=== PATIENT | female | born 1965 | race African-American/Black ===

== ENCOUNTER 2023-09-09 14:09 | Emergency (ER) | payer BC, SELFPAY ==
[2023-09-09 14:27] VITALS: BP 159/76; PULSE 75; RESP 18; TEMP 36.3; O2SAT 97; BMI 24.0
== END 2023-09-09 15:25 | disposition left against medical advice (07) ==
PROVIDERS: Emergency Provider Emergency Medicine Emergency Medical Services
DX: Z53.21 Procedure and treatment not carried out due to patient leaving prior to being seen by health care provider (principal)

== ENCOUNTER 2023-09-09 16:58 | Emergency (ER) | payer BC, SELFPAY ==
[2023-09-09 18:12] VITALS: BP 161/77; PULSE 85; RESP 16; TEMP 36.5; O2SAT 99; BMI 26.3
== END 2023-09-09 20:10 | disposition left against medical advice (07) ==
PROVIDERS: Emergency Provider Family Medicine
DX: Z53.21 Procedure and treatment not carried out due to patient leaving prior to being seen by health care provider (principal)

== ENCOUNTER 2024-10-28 14:45 | Outpatient (RCR) | payer BC, SELFPAY | END 2024-10-28 16:54 | disposition home or self-care (01) | PROVIDERS: Visit Provider Student in an Organized Health Care Education/Training Program | DX: M19.041 Primary osteoarthritis, right hand (principal); Z51.89 Encounter for other specified aftercare | CPT/HCPCS: 97035; 97110; 97140; 97165; 97535; X5282 ==

== ENCOUNTER 2025-01-13 05:56 | Day surgery (SDC) | payer BC, SELFPAY ==
[2025-01-13] VITALS (9 sets, daily range): BP systolic 142–162; BP diastolic 69–85; PULSE 70–97; RESP 16; TEMP 36.6–36.7; O2SAT 98–100; BMI 23.6
[2025-01-13] MEDS: LIDOCAINE 1%-EPI 1:100,000 20 ML INFILTRATI (06:11)
[2025-01-13] MEDS: BUPIVACAINE 0.5% 30 ML INJECTION (06:50)
--- NOTE | 2025-01-13 07:37 | PM.ORPRC ---
Procedure Note Date of procedure: 01/13/25 Procedure: PREOPERATIVE DIAGNOSIS: 1. Right carpal tunnel syndrome POSTOPERATIVE DIAGNOSIS: 1. Right carpal tunnel syndrome PROCEDURE: 1. Right open carpal tunnel release SURGEON: Kai Fonseca MD. SENIOR ENVIRONMENTAL PRACTICE LEADER: Parish Cee PA-C ANESTHESIA: Local anesthetic (50:50 mixture of 1% lidocaine with epi and 0.5% marcaine with epi) - 10ml total IMPLANTS: None EBL: 2 mL TOURNIQUET: None COMPLICATIONS: None evident INDICATIONS: The patient is a pleasant 59-year-old female who has experienced right hand numbess/tingling affecting the radial 3.5 digits for multiple months. It has progressively gotten worse. Nonoperative management has been tried and failed, and therefore surgery was recommended. DESCRIPTION OF PROCEDURE: Following a thorough discussion of risks, benefits, and alternatives consent was obtained and the operative extremity was marked. The patient was brought to the operating room and placed supine on the operating table. Local anesthesia induction was undertaken in preop holding. No antibiotics were administered as this was planned to be a local case only. Proper time-out was performed identifying proper patient, site, and procedure. The operative extremity was prepped and draped in the appropriate sterile fashion using ChloraPrep. An incision was made in line with the radial border of the ring finger beginning 1 cm distal to the distal wrist crease and progressing for another 2.5cm distal. Caution was taken to stay proximal to Douglas's cardinal line. Sharp incision through the skin, subcutaneous tissue, and palmar fascia was performed. The thenar musculature was bluntly elevated off the transverse carpal ligament. The ligament was directly visualized, and divided sharply with a 15 blade. This was released from its most proximal to the most distal extent. Metzenbaum scissor was also utilized to release the fascia extension proximally. We confirmed complete release of the transverse carpal ligament. Closure was performed with 4-O nylon in interrupted fashion. Soft dressings were applied, and the patient was transferred to the recovery room in stable condition. PLAN: 1. Encourage elevation of the operative extremity. 2. Range of motion of the fingers and hand/wrist as tolerated. 3. Ibuprofen/acetaminophen and/or oxycodone as needed for pain control. 4. Follow up with PA visit or nurse visit in 12-16 days for wound check and suture removal.
[2025-01-13] MEDS: BACITRACIN OINTMENT BULK TUBE 1 APPLIC TOPICAL (07:39)
== END 2025-01-13 08:03 | disposition home or self-care (01) ==
PROVIDERS: PCP Family Medicine; Visit Provider Orthopaedic Surgery Sports Medicine
PROC: (CPT 64721; principal; 2025-01-13 07:15)
DX: G56.01 Carpal tunnel syndrome, right upper limb (principal)
CPT/HCPCS: 64721; J0665

== ENCOUNTER 2025-03-20 12:27 | Emergency (ER) | payer BC, SELFPAY ==
--- OUTSIDE RECORDS SUMMARY | 2020-06-02 02:01 | XMS_ITS | Continuity of Care Document ---
Author Organization [facility] Address [address] [address] [place] [address] Phone Care Team Providers Care Optimization Consultant Name Role Phone [place] Fermin CRNA Unavailable Allergies, Adverse Reactions, Alerts Substance Reaction Status Criticality ERYTHROMYCIN LACTOBIONATE rash Active No Information AMOXICILLIN TRIHYDRATE Rash Active No In formation PENICILLIN G POTASSIUM Rash Active No In formation Medications Medication Instructions Dosage Effective Dates (start - stop) Status Comments phentermine 37.5 mg capsule take 0.5 capsule by ORAL route every day before breakfast 18.75 MG - Active vitamin B12 500 mcg-folic acid 400 mcg tablet - Active Vitamin D3 100 mcg (4,000 unit) capsule take 1 tablet by oral route every day as needed - Active omeprazole 20 mg capsule,delayed release take 1 capsule by ORAL route 2 times every day before a meal 20 MG - Active Procedures Procedure Date Colonoscopy Flex; W/remov Les- 21 Level Iv-surg Path Gross/micro 21 Colonoscopy Flex; W/remov Les- 14 Level Iv-surg Path Gross/micro 14 Ugi Endo; W/bx 1/mx Level Iv-surg Path Gross/micro 12 Ugi Endo; W/bx 1/mx Level Iv-surg Path Gross/micro 10 Offic/outpt E&m Estab Low-mod 9 G8447 Offic/outpt E&m Estab Mod-hi 2 09 G8447 Breath Hydrogen Test Breath Hydrogen Test Breath Hydrogen Test Breath Hydrogen Test Breath Hydrogen Test Offic/outpt E&m Estab Mod-hi 2 08 G8447 Offic/outpt E&m Estab Low-mod 8 G8447 Offic/outpt E&m Estab Mod-hi 2 08 G8447 Offic/outpt E&m Estab Mod-hi 2 08 G8447 Offic/outpt E&m Estab Mod-hi 2 08 Offic/outpt E&m Estab Mod-hi 2 08 Ugi Endo; W/bx 1/mx Level Iv-surg Path Gross/micro 07 Immunocytochemistry, Each Antibody Advance Directives Directive Yes / No Effective Date File Name No Information Encounters Encounter Description Practice Location Reason(s) For Visit Diagnoses Date Provider Providers Copied on Encounter [facility] SHIKHA BERMAN [address] [address], [place], [place], [id number], tel:[phone] [facility] No Information 1 Zander Dodson. [address], [id number], [place]. tel:[phone] Referring Provider: Kimberly Braden, [address], [address]. tel:[phone] [facility] [place] [address] [address], [place], [place], [id number], [place] tel:[phone] [facility] Colorectal polypsPerson al history of colonic polypsEncoun ter for screening for malignant neoplasm of colonBenign neoplasm of ascending colonBenign neoplasm of transverse colonBenign neoplasm of ascending colonPersona l history of colonic polyps 1 Rita Harris. [address], [id number], [place]. tel:[phone] Referring Provider: Stevie Nick, [address] [place], [address]. tel:[phone] [facility], [address] [address], [place], [id number], [place] tel:[phone] [facility] No Information 1 Britt Dodson. [address], [id number], [place]. tel:[phone] [facility], [address] [address], [place], [id number], [place] tel:[phone] [facility] No Information 0 Carlos Contreras. [address], [id number], [place]. tel:[phone] [facility], [address] [address], [place], [id number], [place] tel:[phone] [facility] Colon polypColon Cancer ScreeningBen ign Neoplasm ColonPersona l History Colon Polyps 4 Karen Cheng. [address], [id number], [place]. tel:[phone] Referring Provider: Stevie Nick, [address] [place], [address]. tel:[phone] [facility], [address] [address], [place], [id number], [place] tel:[phone] [facility] Post-op Aftercare NecEpigastri c PainEpigastr ic PainPost-op Aftercare Nec Feb- 2 Karen Cheng. [address], [id number], [place]. tel:[phone] Referring Provider: Harvinder Grigsby, [address] [facility] [address], [place], [address]. [phone] [facility], [address] [address], [place], [id number], [place] tel:[phone] [facility] Post-op Aftercare NecDysphagia , UnspecifiedB ariatric Surgery Status - 0 Gelacio Glass. [address] [facility], [address], [place], [place], [id number], [place]. tel:[phone] Referring Provider: Sonal BERMAN, [address] [facility] [address], [place], [address]. tel:[phone] Offic/outpt E&m Estab Low-mod [facility] [place], [address] [address], [place], [id number], [place] tel:[phone] [facility] Abdominal pain/Gastrop aresis (chief complaint)We ight gain (chief complaint) Gastroparesi sGastropares isAbdominal Pain, UnspecifiedA bnormal Weight Gain 3200 9 No Information Referring Provider: Stevie Zarco MD J, [address] [place], [address]. tel:[phone] Offic/outpt E&m Estab Mod-hi 2 [facility] [place], [address] [address], [place], [id number], [place] tel:[phone] [facility] Vomiting (chief complaint) Nausea With Vomiting 0200 9 No Information [facility] [place], [address] [address], [place], [id number], [place] tel:[phone] [facility] Flatul/eruct at/gas Pain 9200 9 No Information Referring Provider: Stevie Nick, [address] [facility], [place], [address]. tel:[phone] [facility], [address] [address], [place], [id number], [place] tel:[phone] [facility] Flatul/eruct at/gas Pain 8 No Information Referring Provider: Stevie Nick, [address] [place] [address], [place], [address]. tel:[phone] [facility], [address] [address], [place], [id number], [place] tel:[phone] [facility] Gastroparesi s 8 No Information Referring Provider: Stevie Nick, [address] [place] [address], [place], [address]. tel:[phone] [facility], [address] [address], [place], [id number], [place] tel:[phone] [facility] Gastroparesi s 8 No Information Referring Provider: Stevie Nick, [address] [place] [address], [place], [address]. tel:[phone] [facility], [address] [address], [place], [id number], [place] tel:[phone] [facility] Gastroparesi s 8 No Information Referring Provider: Stevie Nick, [address] [place] [address], [place], [address]. tel:[phone] Offic/outpt E&m Estab Mod-hi 2 [facility], [address] [address], [place], [id number], [place] tel:[phone] [facility] Gastroparesi s (chief complaint) Gastroparesi sGastropares is 8 Paulino Huang. [address] [facility], [place] [address], [place], [place], [id number], [place]. tel:[phone] Referring Provider: Stevie Nick, [address] [place] [address], [place], [address]. tel:[phone] Offic/outpt E&m Estab Low-mod [facility], [address] [address], [place], [address], [place] tel:[phone] [facility] f/u abdominal pain (chief complaint) Gastroparesi sAbdominal Pain, UnspecifiedF latul/eructa t/gas Pain 8 No Information Referring Provider: Stevie Nick, [address] [facility], [place], [address]. tel:[phone] Offic/outpt E&m Estab Mod-hi 2 [facility], [address] [address], [facility] [place], [address], [place] tel:[phone] [facility] Gastroparesi sAbdominal Pain, UnspecifiedH eartburnNaus ea Alone 8 No Information Referring Provider: Stevie Nick, [address] [facility], [place], [address]. tel:[phone] Offic/outpt E&m Estab Mod-hi 2 [facility], [address] [address], [place], [place], [id number], [place] tel:[phone] [facility] Abdominal Pain, UnspecifiedH eartburnNaus ea With VomitingEarl y Satiety 8 No Information Referring Provider: Stevie Nick, [address] [facility], [place], [address]. tel:[phone] Offic/outpt E&m Estab Mod-hi 2 [facility], [address] [address], [facility] [place], [id number], [place] tel:[phone] [facility] H. Pylori InfectionAbd ominal Pain, Unspecified 8 No Information Referring Provider: Stevie Nick, [address] [facility], [place], [address]. tel:[phone] Offic/outpt E&m Estab Mod-hi 2 [facility], [address] [address], [facility] [place] [id number], [place] tel:[phone] [facility] Abdominal Pain, UnspecifiedC onstipation UnspecifiedE sophagitis Nec 2200 8 No Information Referring Provider: Stevie Zarco MD J, [address] [facility], [place], [address]. tel:[phone] [facility], [address] [address], [place], [id number], tel:[phone] [facility] Esophagitis NecGastritis W/o Bleed 3200 7 No Information Referring Provider: [place] J, [address] [facility], [place], [address]. tel:[phone] Family History Family Member Type Diagnosis Age At Onset First degree family history Problem (finding) No Family history of No history of Colon Polyps First degree family history Problem (finding) No history of Ulcerative Colitis First degree family history Problem (finding) No history of Cancer, colon First degree family history Problem (finding) No history of Crohn's First degree family history Problem (finding) asthma First degree family history Problem (finding) alcoholism First degree family history Problem (finding) Cancer, breast Immunizations Vaccine Date Status Comments zoster vaccine recombinant administered N ote: [facility] bi-directional interface ; Source: Other Registry zoster vaccine recombinant administered N ote: [facility] bi-directional interface ; Source: Other Registry Influenza administered Note: [facility] bi-d irectional interface ; Source: Other Registry Afluria Qd administered Note: M [facility] bi-directional interface ; Source: Other Registry Fluzone Quad 6mo or older administered Note: [facility] bi-direct ional interface ; Source: Other Registry tetanus toxoid, reduced diphtheria toxoid, and acellular pertussis vaccine, adsorbed administered Note: [facility] b i-directional interface ; Source: Other Registry Influenza, seasonal, injecta ble, preservative free administered Note: [facility] bi-direct ional interface ; Source: Other Registry Influenza, seasonal, injectable administe red Note: [facility] bi- directional interface ; Source: Other Registry Influenza, seasonal, injectable administe red Note: [facility] bi- directional interface ; Source: Other Registry tetanus and diphtheria toxoi ds, adsorbed, preservative free, for adult use (2 Lf of tetanus toxoid and 2 Lf of diphtheria toxoid) administered Note: [facility] bi-direct ional interface ; Source: Other Registry Payers Payer name Insurance type Covered alliance party ID Authoriza tizaida(s) Blue Cross Of [facility] [id number] Social History Type Description Quantity Date Captured Comments Sex Female Smoking Status No Information Chief Complaint And Reason For Visit No Information Reason For Referral Reason For Referral No Information Plan Of Treatment Date Type Action Status Referral Ordered: Colonoscopy Appointment date/timeframe: 11/13/2018 ordered History Of Present Illness Encounter Date Complaint History Of Prese nt Illness No Information Functional Status Date Functional Assessmen t No Information Instructions Date Instruction Additional Infor isabelle Colon Cancer Prevention Related to Colorectal polyps Colon Polyps Related to Color ectal polyps Colon Cancer Prevention Related to Colon polyp Colon Polyps Related to Colon polyp Assessments Type Assessment Date No Information Patient Care Teams Name Effective Dates (start - stop) Status Members No Information
--- OUTSIDE RECORDS SUMMARY | 2020-06-02 02:01 | XMS_ITS | Continuity of Care Document ---
Author Organization [facility] Address [address] [address] [place] [address] Phone Care Team Providers Care Gas Blender Name Role Phone [place] Fermin CRNA Unavailable [...] Diagnoses Date Provider Providers Copied on Encounter [facility] SHIKHA BERMAN [address] [address], [place], [place], [id number], tel:[phone] [facility] No Information 1 Zander Dodson. [address], [id number], [place]. tel:[phone] Referring Provider: Kimberly Braden, [address], [address]. tel:[phone] [facility] [place] [address] [address], [place], [place], [id number], [place] tel:[phone] [facility] Colorectal polypsPerson al history of colonic polypsEncoun ter for screening for malignant neoplasm of colonBenign neoplasm of ascending colonBenign neoplasm of transverse colonBenign neoplasm of ascending colonPersona l history of colonic polyps 1 Rita Harris. [address], [id number], [place]. tel:[phone] Referring Provider: Stevie Nikc, [address] [place], [address]. tel:[phone] [facility] PA, [address] [address], [place], [address], [place] tel:[phone] [facility] No Information 1 Britt Dodson. [address], [id number], [place]. tel:[phone] [facility], [address] [address], [place], [id number], [place] tel:[phone] [facility] No Information 0 Carlos Contreras. [address], [id number], [place]. tel:[phone] [facility], [address] [address], [place], [id number], [place] tel:[phone] [facility] Colon polypColon Cancer ScreeningBen ign Neoplasm ColonPersona l History Colon Polyps 4 Karen Cheng. [address], [id number], [place]. tel:[phone] Referring Provider: Stevie Nick, [address] [place], [address]. tel:[phone] [facility], [address] [address], [place], [id number], [place] tel:[phone] [facility] Post-op Aftercare NecEpigastri c PainEpigastr ic PainPost-op Aftercare Nec Feb- 2 Karen Cheng. [address], [id number], [place]. tel:[phone] Referring Provider: Harvinder Grigsby, [address] [facility] [address], [place], [address]. [phone] [facility], [address] [address], [place], [id number], [place] tel:[phone] [facility] Post-op Aftercare NecDysphagia , UnspecifiedB ariatric Surgery Status - 0 Gelacio Glass. [address] [facility], [address], [place], [place], [id number], [place]. tel:[phone] Referring Provider: Sonal BERMAN, [address] [facility] [address], [place], [address]. tel:[phone] Offic/outpt E&m Estab Low-mod [facility] [place], [address] [address], [place], [id number], [place] tel:[phone] [facility] Abdominal pain/Gastrop aresis (chief complaint)We ight gain (chief complaint) Gastroparesi sGastropares isAbdominal Pain, UnspecifiedA bnormal Weight Gain 3200 9 No Information Referring Provider: Stevie Zarco MD J, [address] [place], [address]. tel:[phone] Offic/outpt E&m Estab Mod-hi 2 [facility] [place], [address] [address], [place], [id number], [place] tel:[phone] [facility] Vomiting (chief complaint) Nausea With Vomiting 0200 9 No Information [facility] [place], [address] [address], [place], [id number], [place] tel:[phone] [facility] Flatul/eruct at/gas Pain 9200 9 No Information Referring Provider: Stevie Nick, [address] [facility], [place], [address]. tel:[phone] [facility], [address] [address], [place], [id number], [place] tel:[phone] [facility] Flatul/eruct at/gas Pain 8 No Information Referring Provider: Stevie Nick, [address] [place] [address], [place], [address]. tel:[phone] [facility], [address] [address], [place], [id number], [place] tel:[phone] [facility] Gastroparesi s 8 No Information Referring Provider: Stevie Nick, [address] [place] [address], [place], [address]. tel:[phone] [facility], [address] [address], [place], [id number], [place] tel:[phone] [facility] Gastroparesi s 8 No Information Referring Provider: Stevie Nick, [address] [place] [address], [place], [address]. tel:[phone] [facility], [address] [address], [place], [id number], [place] tel:[phone] [facility] Gastroparesi s 8 No Information Referring Provider: Stevie Nick, [address] [place] [address], [place], [address]. tel:[phone] Offic/outpt E&m Estab Mod-hi 2 [facility], [address] [address], [place], [id number], [place] tel:[phone] [facility] Gastroparesi s (chief complaint) Gastroparesi sGastropares is 8 Paulino Huang. [address] [facility], [place] [address], [place], [place], [id number], [place]. tel:[phone] Referring Provider: Stevie Nick, [address] [place] [address], [place], [address]. tel:[phone] Offic/outpt E&m Estab Low-mod [facility], [address] [address], [place], [address], [place] tel:[phone] [facility] f/u abdominal pain (chief complaint) Gastroparesi sAbdominal Pain, UnspecifiedF latul/eructa t/gas Pain 8 No Information Referring Provider: Stevie Nick, [address] [facility], [place], [address]. tel:[phone] Offic/outpt E&m Estab Mod-hi 2 [facility], [address] [address], [facility] [place], [id number], [place] tel:[phone] [facility] Gastroparesi sAbdominal Pain, UnspecifiedH eartburnNaus ea Alone 8 No Information Referring Provider: Stevie Nick, [address] [facility], [place], [address]. tel:[phone] Offic/outpt E&m Estab Mod-hi 2 [facility], [address] [address], [place], [place], [id number], [place] tel:[phone] [facility] Abdominal Pain, UnspecifiedH eartburnNaus ea With VomitingEarl y Satiety 8 No Information Referring Provider: Stevie Nick, [address] [facility], [place], [address]. tel:[phone] Offic/outpt E&m Estab Mod-hi 2 [facility], [address] [address], [facility] [place], [id number], [place] tel:[phone] [facility] H. Pylori InfectionAbd ominal Pain, Unspecified 8 No Information Referring Provider: Stevie Nick, [address] [facility], [place], [address]. tel:[phone] Offic/outpt E&m Estab Mod-hi 2 [facility], [address] [address], [facility] [place], [id number], [place] tel:[phone] [facility] Abdominal Pain, UnspecifiedC onstipation UnspecifiedE sophagitis Nec 2200 8 No Information Referring Provider: Stevie Zarco MD J, [address] [facility], [place], [address]. tel:[phone] [facility], [address] [address], [place], [address], tel:[phone] [facility] Esophagitis NecGastritis W/o Bleed 3200 7 No Information Referring Provider: Stevie Zarco MD J, [address] [facility], [place], [address]. tel:[phone] Family History Family Member Type Diagnosis Age [...] Registry Payers Payer name Insurance type Covered constitution party ID Authoriza tizaida(s) Blue Cross Of [facility] [id number] Social History Type Description Quantity Date Captured [...]
--- OUTSIDE RECORDS SUMMARY | 2025-02-26 06:45 | XMS_ITS | Encounter Summary ---
Author Organization [facility] Address [address] [place] [address] Care Team Providers [employer] Professor Name Role Phone Stevie Zarco MD Primary Care Provider [phone] Zenobia Allen PA-C Unavailable [phone] Vicky Painting [facility] Unavailable [phone] Vicky Painting [facility] Unavailable [phone] Reason for Referral * Medication Prior Authorization - Authorized Specialty Diagnoses / Procedures Referred By Contac t Referred To Contact Diagnoses Hx of obesity Zenobia Allen PA-C [address] [facility] [address] [place] [address] Phone: tel: fax: Referral ID Status Reason Start Date Expiration Date V isits Requested Visits Authorized [id number] Authorized 05/23/2024 06/22/2025 1 1 Reason for Visit * Reason Onset Date Comments RECHECK Return MVM Surgical Followup 02/26/2025 Encounter Details Date Type Department Care Team (Latest Contact Info) Description 02/26/2025 7:45 AM CDT Virtual Visit [facility] [place] [address] [facility] [address] [place] [phone] Zenobia Allen PA-C [address] [facility] [address] [place] [address] Hx of obesity (Primary Dx); Borderline high cholesterol; Bariatric surgery status; Postsurgical malabsorption Social History Tobacco Use Types Packs/Day Years Used Date Smoking Tobacco: Never Smokeless Tobacco: Never Tobacco Cessation:Counseling Given: Yes Alcohol Use Standard Drinks/Week Comments Yes 0 (1 standard drink = 0.6 oz pur e alcohol) occ wine PHQ-2 Answer Date Recorded PHQ-2 Score 0 09/11/2024 Adolescent Education Answer Date Record ed Getting School Help Needed Not on file 01/24 Comments No Sex and Gender Information Value Date Recorded Sex Assigned at Not on file Legal Sex Female 4:12 AM WELDER FITTER ARC Gender Identity Not on file Sexual Orientation Not on file documented as of this encounter Last Filed Vital Signs Vital Sign Reading Time Taken Comments Blood Pressure - - Pulse - - Temperature - - Respiratory Rate - - Oxygen Saturation - - Inhaled Oxygen Concentration - - Weight 49.9 kg (110 lb) 02/25/2025 3:35 PM CDT Height 147.3 cm (4' 10) 02/25/2025 3:35 PM CDT Body Mass Index 22.99 02/25/2025 3:35 PM CDT documented in this encounter Patient Instructions * Patient Instructions* Zenobia Allen PA-C - 02/26/2025 7:45 AM CDT Nice to talk with you today. Below is the plan discussed.- . Zenobia Allen PA-C Plan: Labs ordered. Call [phone] to schedule. Take the recommended bariatric vitamins: I've bolded the ones you need to add 2 Complete multivitamins with minerals (at different times than calcium) Vitamin D 5000 Int Units/125 mg daily Calcium 600 mg twice daily or 500 mg three times daily Vitamin B12: 500 mcg sl daily or 1000 mcg Inj monthly Thiamine 100 mg weekly Reduce to 0.5 mg Wegovy for the next 2 months. Great job with exercising - please continue to invest in yourself with regular exercise. Continue to strive for a range for 150-300 minutes of exercise for weight maintenance and incorporating strength training 2-4 times a week to help preserve muscle! FOLLOW-UP: Call [phone] to schedule next visit in 2 months with me and the dietitian or if youcan't get in with me then with ANKUR Hicks pharmD Strength Training Strength training is exercise that involves your own body weight or equipment to build muscle, endurance, and strength. Increasing muscle helps increase your metabolism. [employer] for Strength training [email or web address] Muscle Conditionin Exercises Resistance Training with Free Weights: 3 Exercises Resistance Training with Surgical Tubin Exercises Seated Exercises for Arms and Legs: 11 Exercises Stretchin Exercises Additional Outside Sources [employer] Jenna 2. No Equipment Home Exercise Lists from [facility] [employer] [email or web address]/public/upload/files/[email or web address] [email or web address].[email or web address] 3.Strength training YouTube workouts [email or web address]/user/[email or web address] 4. Guide to Beginning Strength Training [email or web address]/ Bariatric Post Op Guidelines General: Follow up annually lifelong. Obesity is a chronic disease. Weight gain can be expected. The goal of follow-up visits is to ensure adequate vitamin and protein absorption, evaluate food intake behavior, review exercise/activity level, and assist with weight regain. To avoid marginal ulcers avoid all forms of tobacco, alcohol in excess, caffeine, and NSAIDS Exercise is arce for weight loss and weight maintenance. Aim for 30-60 minutes of physical activity most days. Include cardiovascular and strength training. Continue lifelong vitamins supplementation and annual lab follow up. All patients should supplement with the following bariatric postoperative vitamins: 2 Complete multivitamins with minerals (at different times than calcium) Vitamin D 5000 Int Units/125 mg daily Calcium 600 mg twice daily or 500 mg three times daily Vitamin B12: 500 mcg sl daily or 1000 mcg Inj monthly B complex daily or Thiamine 100 mg weekly 1 Iron/Vit C. Daily for females who menstruate and/or as directed Relay GI symptoms which can be a sign of complications. Inability to tolerate solid food (chicken, steak, fish) should by need to be evaluated. There is a 10% increase of Alcohol Use Disorder in patients with bariatric surgery. Most often occurring around 2 years post op. Call if you feel alcohol is interfering in your daily life. We can help. Nutritional: Eat 3 meals per day (No snacks between meals.) Do not skip meals. This can cause overeating at the next meal and will prevent adequate protein andnutritional intake. Aim for 60-80 grams of protein per day. Always eat your protein first. This assists with optimal nutrition and helps you stay full longer. Eat your protein first, and then follow with fiber. Add fiber by including fruits, vegetables, whole grains, and beans. Portions should be 1 cup per meal. Continue to use saucer/salad plates, /toddler silverware to keep portion sizes small and takesmall bites. Make each meal last 20-30 minutes. Always stop eating when satisfied. Aim for 64 oz. of calorie-free fluids daily. Avoid drinking 30 min before, during, and 30 min after meal Avoid high sugar and high fat foods to prevent high calorie intake. Check nutrition labels for less than 10 grams of sugar and less than 10 grams of fat per serving. documented in this encounter Progress Notes * Zenobia Allen PA-C - 02/26/2025 7:45 AM CDT Roula is a 59 year old who is being evaluated via a billable video visit. The patient has been notified of following: This video visit will be conducted via a call between you and your physician/provider. We have found that certain health care needs can be provided without the need for an in-person physical exam. This service lets us provide the care you need with a video conversation. If a prescription is necessary we can send it directly to your pharmacy. If lab work is needed we can place an order for that and you can then stop by our lab to have the test done at a later time. Video visits are billed at different rates depending on your insurance coverage. Please reach out to your insurance provider with any questions. If during the course of the call the physician/provider feels a video visit is not appropriate, youwill not be charged for this service. Patient has given verbal consent for Video visit? Yes How would you like to obtain your AVS? MyChart If the video visit is dropped, the invitation should be resent by: Text to cell phone: [phone] Will anyone else be joining your video visit? No I Video-Visit Details Type of service: Video Visit Originating Location (pt. Location): Home in [place] Distant Location (provider location): Home office in [place] Platform used for Video Visit: YoniHermes IQ - her camera was not working though Video Start Time: 7:43 AM Video End Time:8:13 AM BARIATRIC FOLLOW UP 02/26/2025 HISTORY OF PRESENT ILLNESS: Pt presents today for her follow-up appointment status post laparoscopic gastric bypass. Assessment & Plan Problem List Items Addressed This Visit Bariatric surgery status S/p RNY Start taking recommended post-op vitamins. Labs ordered per protocol. Relevant Orders CBC with platelets Vitamin B12 Vitamin D Screen Parathyroid Hormone Intact Iron and Iron Binding Capacity Ferritin Comprehensive metabolic panel Copper level Zinc Vitamin B1 whole blood Postsurgical malabsorption Relevant Orders CBC with platelets Vitamin B12 Vitamin D Screen Parathyroid Hormone Intact Iron and Iron Binding Capacity Ferritin Comprehensive metabolic panel Copper level Zinc Vitamin B1 whole blood Borderline high cholesterol This is a weight related comorbidity that I would anticipate to improve with weight management. Hx of obesity - Primary We reviewed recommendations for muscle conservation including eating three meals daily, good protein intake, and strength training. She has been off Wegovy and tried Zepbound but doesn't prefer it nor the vials. Insurance was covering Wegovy so she'd like to return to that. Would recommend lower dose and sending 2 months of 0.5 mg Wegovy for now. Needing to maintain weight rather than looking forany more weight loss and she is agreeable to this. Relevant Medications Semaglutide-Weight Management (WEGOVY) 0.5 MG/0.5ML pen PATIENT INSTRUCTIONS: Plan: Labs ordered. Call [phone] to schedule. Take the recommended bariatric vitamins: I've bolded the ones you need to add 2 Complete multivitamins with minerals (at different times than calcium) Vitamin D 5000 Int Units/125 mg daily Calcium 600 mg twice daily or 500 mg three times daily Vitamin B12: 500 mcg sl daily or 1000 mcg Inj monthly Thiamine 100 mg weekly Reduce to 0.5 mg Wegovy for the next 2 months. Great job with exercising - please continue to invest in yourself with regular exercise. Continue to strive for a range for 150-300 minutes of exercise for weight maintenance and incorporating strength training 2-4 times a week to help preserve muscle! FOLLOW-UP: Call [phone] to schedule next visit in 2 months with me and the dietitian or if youcan't get in with me then with ANKUR Hicks pharmD 50 minutes spent on the date of the encounter doing chart review, history and exam, result review, counseling, developing plan of care, documentation, and further activities as noted The longitudinal plan of care for the diagnosis(es)/condition(s) as documented were addressed during this visit. Due to the added complexity in care, I will continue to support Roula in the subsequentmanagement and with ongoing continuity of care. INTERVAL HX: Post-bariatric surgery follow-up and medical weight management. She was last seen with ANKUR Hicks pharmD 08/2024 and plan at that time was to stop Wegovy and transition to Zepbound every other week for maintenance. For vitamins she recommended adding a chewable calcium/vit D, 2k vit D daily, and thiamine 100 mg once weekly for hx of RNY. Today, Roula states that she only took Zepbound for a month and was taking it weekly but didn't feellike it did anything nor did she like pulling up her own injection. This week she restarted herselfat 1.7 mg Wegovy from a supply she had in her fridge from prior. Denies any GI SE at this time. She is taking omeprazole for GERD For vitamins, she is taking: Vitamin D 5000 international unit(s) every other day Vitamin B12 500 mg daily She stopped vitamin K (told didn't need it any longer) Caltrate bone health 600 mg calcium plus D twice daily, she thought the Caltrate was a multivitaminso stated she wasn't aware that she needed anything else. Other medications that she reports she is taking include Mupirocin ointment twice daily from dermatology and clobetasol ointment from dermatology twice daily and doing a light treatment as well. She reports taking phentermine as needed for concentration from primary care She states that she has been gaining some weight during this process and can range from 110-120 lbscurrently. She unsure how long though. has been on her about exercising. Does have weights and resistance bands Eating patterns: 1 cup of food when she eats. She does try to get in food several times a day. Yesterday: Not a breakfast person and was off work Got up around 4:30 am and then went back to bed until early afternoon Ate candy in the afternoon before leaving the day Ate 1 cup of pasta (didn't finish) Ate a piece of bread and sugar free juice, ate some broccoli Finished pasta - shrimp pedro pasta - shrimp, sauce, and noodles This morning - trick or treat candy and then will make something for breakfast (doesn't normally eat until 9:30 am or so till her work break) Will have something for breakfast at that time - bagel sandwich or egg bake from work Lunch - lunch room will do chicken fajitas or chili dogs Dinner at 6pm Evenings may do ice cream or yogurt as well WEIGHT METRICS: Body mass index is 22.99 kg/m??. Current Weight: 110 lb (49.9 kg) Last Visits Weight: 105 lb (47.6 kg) Initial Weight (lbs): 137 lbs Cumulative weight loss (lbs): 27 Weight Loss Percentage: 19.71% Wt Readings from Last 10 Encounters: 02/25/25 110 lb (49.9 kg) 09/11/24 105 lb (47.6 kg) 06/19/24 105 lb (47.6 kg) 01/20/24 103 lb 6.4 oz (46.9 kg) 10/21/23 116 lb (52.6 kg) 05/17/23 129 lb (58.5 kg) 01/17/23 132 lb (59.9 kg) 12/23/18 127 lb (57.6 kg) 09/23/18 127 lb (57.6 kg) 08/26/18 127 lb (57.6 kg) LABS/IMAGING/MEDICAL RECORDS REVIEW: Hemoglobin A1C Date Value Ref Range Status 06/11/2023 5.8 (H) 0.0 - 5.6 % Final Comment: Normal <5.7% Prediabetes 5.7-6.4% Diabetes 6.5% or higher Note: Adopted from ADA consensus guidelines. Vitamin D, Total (25-Hydroxy) Date Value Ref Range Status 06/11/2023 82 (H) 20 - 50 ng/mL Final Comment: toxicity possible Parathyroid Hormone Intact Date Value Ref Range Status 06/11/2023 42 15 - 65 pg/mL Final Vitamin B12 Date Value Ref Range Status 07/03/2024 2,311 (H) 232 - 1,245 pg/mL Final Hemoglobin Date Value Ref Range Status 06/11/2023 12.9 11.7 - 15.7 g/dL Final Ferritin Date Value Ref Range Status 06/11/2023 20 11 - 328 ng/mL Final Iron Date Value Ref Range Status 06/11/2023 63 37 - 145 ug/dL Final Iron Binding Capacity Date Value Ref Range Status 06/11/2023 538 (H) 240 - 430 ug/dL Final Iron Saturation Index Date Value Ref Range Status 08/22/2017 10 (L) 15 - 46 % Final 01/10/2010 27 15 - 46 % Final Iron Sat Index Date Value Ref Range Status 06/11/2023 12 (L) 15 - 46 % Final Vitamin A Date Value Ref Range Status 06/11/2023 0.61 0.30 - 1.20 mg/L Final Creatinine Date Value Ref Range Status 07/03/2024 0.56 0.51 - 0.95 mg/dL Final Urea Nitrogen Date Value Ref Range Status 07/03/2024 12.0 8.0 - 23.0 mg/dL Final ALT Date Value Ref Range Status 06/11/2023 44 0 - 50 U/L Final Comment: Reference intervals for this test were updated on 10/08/2022 to more accurately reflect our healthy population. There may be differences in the flagging of prior results with similar values performed with this method. Interpretation of those prior results can be made in the context of the updated reference intervals. AST Date Value Ref Range Status 06/11/2023 34 0 - 45 U/L Final Comment: Reference intervals for this test were updated on 10/08/2022 to more accurately reflect our healthy population. There may be differences in the flagging of prior results with similar values performed with this method. Interpretation of those prior results can be made in the context of the updated reference intervals. Copper Date Value Ref Range Status 06/11/2023 140.9 80.0 - 155.0 ug/dL Final Comment: INTERPRETIVE INFORMATION: Copper, Serum or Plasma Elevated results may be due to skin or collection-related contamination, including the use of a noncertified metal-free collection/transport tube. If contamination concerns exist due to elevated levels of serum/plasma copper, confirmation with a second specimen collected in a certified metal-free tube is recommended. Serum copper may be elevated with infection, inflammation, stress, and copper supplementation. In females, elevated copper may also be caused by oral contraceptives and (concentrations may be elevated up to 3 times normal during the third trimester). This test was developed and its performance characteristics determined by [facility]. It has not been cleared or approved by the US Food and Drug Administration. This test was performed in a CLIA certified laboratory and is intended for clinical purposes. Performed By: [facility] [address] [place], [place] [id number] Trademark Attorney: Jaime Byrd MD, PhD CLIA Number: [id number] Zinc, Serum/Plasma Date Value Ref Range Status 06/11/2023 55.2 (L) 60.0 - 120.0 ug/dL Final Comment: INTERPRETIVE INFORMATION: Zinc, Serum or Plasma Elevated results may be due to skin or collection-related contamination, including the use of a noncertified metal-free collection/transport tube. If contamination concerns exist due to elevated levels of serum/plasma zinc, confirmation with a second specimen collected in a certified metal-free tube is recommended. Circulating zinc concentrations are dependent on albumin status and are depressed with malnutrition. Zinc may also be lowered with infection, inflammation, stress, oral contraceptives, and . Zinc may be elevated with zinc supplementation or fasting. Elevated zinc concentrations may interfere with copper absorption. This test was developed and its performance characteristics determined by [facility]. It has not been cleared or approved by the US Food and Drug Administration. This test was performed in a CLIA certified laboratory and is intended for clinical purposes. Performed By: [facility] [address] [place] [id number] Trademark Attorney: Jaime Byrd MD, PhD [facility] Number: [id number] BP Readings from Last 6 Encounters: 01/20/24 (!) 147/83 05/17/23 (!) 152/90 01/17/23 138/84 12/23/18 (!) 140/100 07/16/18 137/80 06/24/18 122/72 Pulse Readings from Last 6 Encounters: 01/20/24 103 05/17/23 98 07/16/18 72 11/15/17 79 11/01/17 69 09/25/17 67 PHYSICAL EXAMINATION: Ht 4' 10 (1.473 m) Wt 110 lb (49.9 kg) BMI 22.99 kg/m?? Audio only - camera was not working for her computer visit RESP: No audible wheeze, cough. Speaking in full sentences NEURO: Mentation and speech appropriate for age. PSYCH: Mentation appears normal, - Zenobia Allen PA-C documented in this encounter Miscellaneous Notes * Assessment & Plan Note - Zenobia Allen PA-C - 02/26/2025 12:09 PM CDT Associated Problem(s): Bariatric surgery status S/p RNY Start taking recommended post-op vitamins. Labs ordered per protocol. * Assessment & Plan Note - Zenobia Allen PA-C - 02/26/2025 12:05 PM CDT Associated Problem(s): Hx of obesity We reviewed recommendations for muscle conservation including eating three meals daily, good protein intake, and strength training. She has been off Wegovy and tried Zepbound but doesn't prefer it nor the vials. Insurance was covering Wegovy so she'd like to return to that. Would recommend lower dose and sending 2 months of 0.5 mg Wegovy for now. Needing to maintain weight rather than looking forany more weight loss and she is agreeable to this. * Assessment & Plan Note - Zenobia Allen PA-C - 02/26/2025 12:03 PM CDT Associated Problem(s): Borderline high cholesterol This is a weight related comorbidity that I would anticipate to improve with weight management. documented in this encounter Plan of Treatment Upcoming Encounters Date Type Department Care Team (Late st Contact Info) Description 03/29/2025 9:00 AM WELDER FITTER ARC Virtual Visit [facility] [place] [address] [facility] [address] [place] [phone] Lesli Castillo [facility] [address] [place] [address] 04/26/2025 8:00 AM WELDER FITTER ARC Virtual Visit [facility] [place] [address] [facility] [address] [place] [phone] Zenobia Allen PA-C [address] [place], [place] [id number] documented as of this encounter Results * Vitamin B1 whole blood (03/15/2025 9:11 AM WELDER FITTER ARC) [facility] Vitamin B1 Whole Blood Level 126 70 - 180 nmol/L 03/18/2025 5:19 AM WELDER FITTER ARC [employer] Comment: INTERPRETIVE INFORMATION: Vitamin B1, Whole Blood This assay measures the concentration of thiamine diphosphate (TDP), the primary active form of vitamin B1. Approximately 90 percent of vitamin B1 present in whole blood is TDP. Thiamine and thiamine monophosphate, which comprise the remaining 10 percent, are not measured. This test was developed and its performance characteristics determined by [facility]. It has not been cleared or approved by the US Food and Drug Administration. This test was performed in a CLIA certified laboratory and is intended for clinical purposes. Performed By: [facility] [address] [place] [id number] Trademark Attorney: Jaime Byrd MD, PhD CLIA Number: [id number] Blood BLOOD SPECIMEN / Unknown Venipuncture / Unknown 03/15/2025 9:11 AM WELDER FITTER ARC 03/15/2025 9:11 AM WELDER FITTER ARC Zenobia BERMAN-[facility] LAB - BLOOD ORDERABLES Final Re sult Performing Organization Address [facility]/ZIP Co de Phone Number [facility] [address] [place] [phone] [phone] * Zinc (03/15/2025 9:11 AM WELDER FITTER ARC) Pathologist [facility] Zinc, Serum/Plasma 75.0 60.0 - 120.0 ug/dL 03/17/2025 4:02 AM WELDER FITTER ARC [employer] Comment: INTERPRETIVE INFORMATION: Zinc, Serum or Plasma Elevated results may be due to skin or collection-related contamination, including the use of a noncertified metal-free collection/transport tube. If contamination concerns exist due to elevated levels of serum/plasma zinc, confirmation with a second specimen collected in a certified metal-free tube is recommended. Circulating zinc concentrations are dependent on albumin status and are depressed with malnutrition. Zinc may also be lowered with infection, inflammation, stress, oral contraceptives, and . Zinc may be elevated with zinc supplementation or fasting. Elevated zinc concentrations may interfere with copper absorption. This test was developed and its performance characteristics determined by [facility]. It has not been cleared or approved by the US Food and Drug Administration. This test was performed in a CLIA certified laboratory and is intended for clinical purposes. Performed By: [facility] [address] [place] [id number] Tr[employer] Attorney: Jaime Byrd MD, PhD CLIA Number: [id number] Blood BLOOD SPECIMEN / Unknown Venipuncture / Unknown 03/15/2025 9:11 AM WELDER FITTER ARC 03/15/2025 9:11 AM WELDER FITTER ARC Zenobia [facility] - BLOOD ORDERABLES Final Re sult Performing Organization Address [facility]/ZIP Co de Phone Number [facility] [address] [place] [phone] [phone] * Copper level (03/15/2025 9:11 AM WELDER FITTER ARC) Copper 152.2 80.0 - 155.0 ug/dL 03/17/2025 4:02 AM WELDER FITTER ARC [employer] Comment: INTERPRETIVE INFORMATION: Copper, Serum or Plasma Elevated results may be due to skin or collection-related contamination, including the use of a noncertified metal-free collection/transport tube. If contamination concerns exist due to elevated levels of serum/plasma copper, confirmation with a second specimen collected in a certified metal-free tube is recommended. Serum copper may be elevated with infection, inflammation, stress, and copper supplementation. In females, elevated copper may also be caused by oral contraceptives and (concentrations may be elevated up to 3 times normal during the third trimester). This test was developed and its performance characteristics determined by [facility]. It has not been cleared or approved by the US Food and Drug Administration. This test was performed in a CLIA certified laboratory and is intended for clinical purposes. Performed By: [facility] [address] [place] [address] Trademark Attorney: Jaime Byrd MD, PhD CLIA Number: [id number] Blood BLOOD SPECIMEN / Unknown Venipuncture / Unknown 03/15/2025 9:11 AM [facility] 03/15/2025 9:11 AM [facility] us Zenobia Allen PA-C LAB - BLOOD ORDERABLES Final Re sult [facility] [address] [place] [address] [phone] * (ABNORMAL) Comprehensive metabolic panel (03/15/2025 9:11 AM [facility]) Sodium 142 135 - 145 mmol/L 03/15/2025 4:58 PM [facility] Potassium 3.3(L) 3.4 - 5.3 mmol/L 03/15/2025 4:58 PM [facility] Carbon Dioxide (CO2) 30(H) 22 - 29 mmol/L 03/15/2025 4:58 PM [facility] Anion Gap 9 7 - 15 mmol/L 03/15/2025 4:58 PM [facility] Urea Nitrogen 9.1 8.0 - 23.0 mg/dL 03/15/2025 4:58 PM [facility] Creatinine 0.53 0.51 - 0.95 mg/dL 03/15/2025 4:58 PM [facility] GFR Estimate >90 >60 mL/min/1.7 3m2 03/15/2025 4:58 PM [facility] Comment:eGFR calculated 2020 CKD-EPI equation. Calcium 9.9 8.8 - 10.4 mg/dL 03/15/2025 4:58 PM [facility] Chloride 103 98 - 107 mmol/L 03/15/2025 4:58 PM [facility] Glucose 91 70 - 99 mg/dL 03/15/2025 4:58 PM [facility] Alkaline Phosphatase 88 40 - 150 U/L 03/15/2025 4:58 PM [facility] AST 48(H) 0 - 45 U/L 03/15/2025 4:58 PM [facility] ALT 64(H) 0 - 50 U/L 03/15/2025 4:58 PM [facility] Protein Total 7.4 6.4 - 8.3 g/dL 03/15/2025 4:58 PM [facility] Albumin 4.2 3.5 - 5.2 g/dL 03/15/2025 4:58 PM [facility] Bilirubin Total 0.6 <=1.2 mg/dL 03/15/2025 4:58 PM [facility] Blood BLOOD SPECIMEN / Unknown Venipuncture / Unknown 03/15/2025 9:11 AM [facility] [employer] 03/15/2025 9:11 AM [employer] us Zenobia Allen PA-C LAB - BLOOD ORDERABLES Final Re sult [facility] [address] [facility] [address] Building, [address] [place] [phone] * Ferritin (03/15/2025 9:11 AM [facility]) Ferritin 119 11 - 328 ng/mL 03/15/2025 4:58 PM [facility] Blood BLOOD SPECIMEN / Unknown Venipuncture / Unknown 03/15/2025 9:11 AM [facility] [employer] [facility] 03/15/2025 9:11 AM [facility] [employer] Zenobia BERMAN-C LAB - BLOOD ORDERABLES Final Re sult Performing Organization Address City/[facility]/ZIP Co de Phone Number [facility] [address] [facility], [address] * Iron and Iron Binding Capacity (03/15/2025 9:11 AM [facility]) Pathologist [facility] Iron 100 37 - 145 ug/dL 03/15/2025 4:58 PM [facility] Iron Binding Capacity 371 240 - 430 ug/dL 03/15/2025 4:58 PM [facility] Iron Sat Index 27 15 - 46 % 03/15/2025 4:58 PM [facility] Blood BLOOD SPECIMEN / Unknown Venipuncture / Unknown 03/15/2025 9:11 AM [facility] [employer] 03/15/2025 9:11 AM [facility] Zenobia BERMAN-C LAB - BLOOD ORDERABLES Final Re sult Performing Organization Address [facility] de Phone Number [facility] [address] [facility], [address] * (ABNORMAL) Parathyroid Hormone Intact (03/15/2025 9:11 AM [facility]) Parathyroid Hormone Intact 8(L) 18 - 59 pg/mL 03/15/2025 5:14 PM [facility] Comment:Starting on 02/17/20 25 there has been an update to the reference range for this test. Blood BLOOD SPECIMEN / Unknown Venipuncture / Unknown 03/15/2025 9:11 AM [facility] [employer] [facility] 03/15/2025 9:11 AM [facility] [employer] Narrative [facility] - 03/15/2025 5:14 PM [facility] [employer] This result was obtained with the [employer] PTH STAT assay. This reference range differs from PTH assays used in other [facility] laboratories. us Zenobia Allen PA-C LAB - BLOOD ORDERABLES Final Re sult Performing Organization Address [facility] de Phone Number [facility] [address] [facility], [address] [phone] * (ABNORMAL) Vitamin D Screen (03/15/2025 9:11 AM [facility]) Vitamin D, Total (25-Hydroxy) 55(H) 20 - 50 ng/mL 03/15/2025 4:58 PM [facility] Comment:indicates supplement ation, with increased risk of hypercalciuria Blood BLOOD SPECIMEN / Unknown Venipuncture / Unknown 03/15/2025 9:11 AM [facility] [employer] [facility] 03/15/2025 9:11 AM [facility] [employer] Narrative [facility] - 03/15/2025 4:58 PM [facility] Season, race, dietary intake, and treatment affect the concentration of 65-aagrdco-Kxkvjoe D. Values may decrease during winter months and increase during summer months. Vitamin D determination is routinely performed by an immunoassay specific for 25 hydroxyvitamin D3. If an individual is on vitamin D2(ergocalciferol) supplementation, please specify 25 [place] vitamin D2 and D3 level determination by LCMSMS test VITD23. us Zenobia Allen PA-C LAB - BLOOD ORDERABLES Final Re sult Performing Organization Address City/[facility] Co de Phone Number [facility] [place] [facility] [address] [facility], [address] [phone] * (ABNORMAL) Vitamin B12 (03/15/2025 9:11 AM [facility] [employer] [facility]) Vitamin B12 1,249(H) 232 - 1,245 pg/mL 03/15/2025 4:58 PM [facility] Blood BLOOD SPECIMEN / Unknown Venipuncture / Unknown 03/15/2025 9:11 AM [facility] 03/15/2025 9:11 AM [employer] Zenobia Allen PA-C LAB - BLOOD ORDERABLES Final Re sult [facility] [address] [facility]. [facility], [address] [place] [address], [facility] * CBC with platelets (03/15/2025 9:11 AM [facility]) WBC Count 6.97 4.00 - 11.00 10e3/uL 03/15/2025 9:27 AM [facility] RBC Count 5.04 3.80 - 5.20 10e6/uL 03/15/2025 9:27 AM [facility] Hemoglobin 14.4 11.7 - 15.7 g/dL 03/15/2025 9:27 AM [facility] Hematocrit 42.4 35.0 - 47.0 % 03/15/2025 9:27 AM [facility] MCV 84.1 78.0 - 100.0 fL 03/15/2025 9:27 AM [facility] MCH 28.6 26.5 - 33.0 pg 03/15/2025 9:27 AM [facility] MCHC 34.0 31.5 - 36.5 g/dL 03/15/2025 9:27 AM [facility] RDW 13.1 10.0 - 15.0 % 03/15/2025 9:27 AM [facility] Platelet Count 243 150 - 450 10e3/uL 03/15/2025 9:27 AM [facility] Blood BLOOD SPECIMEN / Unknown Venipuncture / Unknown 03/15/2025 9:11 AM [facility] [employer] [facility] 03/15/2025 9:11 AM [facility] Zenobia Allen PA-C LAB - BLOOD ORDERABLES Final Re sult [facility] [place] [facility] [address] [facility] Lab (no room number, 1st floor of clinic) [place] [address], [facility] documented in this encounter Visit Diagnoses Diagnosis Hx of obesity- Primary Personal history of other specified diseases Borderline high cholesterol Unspecified disorder of lipoid metabolism Bariatric surgery status Postsurgical malabsorption Other and unspecified postsurgical nonabsorption documented in this encounter Care Teams Classics Professor Relationship Specialty Start Date End Date Stevie Zarco MD PCP - General Family Practice 02/20/12 Zenobia Allen PA-C [address] [facility] [address] [place], [place] [phone] Assigned Surgical Provider 05/23/23 Vicky Painting [facility] [address] [place] [address] [phone] Pharmacist Pharmacist 09/11/24 Vicky Painting [facility] [address] [place] [address] [phone] Assigned [facility] Pharmacist 09/18/24 documented as of this encounter
--- OUTSIDE RECORDS SUMMARY | 2025-03-15 09:00 | XMS_ITS | Encounter Summary ---
Author Organization [place] Address [address] [place] [address] Care Team Providers Care Milk Condenser Name Role Phone Stevie Zarco MD Primary Care Provider [phone] Zenobia Allen PA-C Unavailable [phone] Vicky Painting [facility] Unavailable [phone] Vicky Painting [facility] Unavailable [phone] Encounter Details Date Type Department Care Team (Late Contact Info) Description 03/15/2025 9:00 AM MILL MACHINIST Lab [facility] [address] [place] [address] Postsurgical malabsorption; Bariatric surgery status Social History Tobacco Use Types Packs/Day Years Used Date Smoking Tobacco: Never Smokeless Tobacco: Never Alcohol Use Standard Drinks/Week Comments Yes 0 (1 standard drink = 0.6 oz pur e alcohol) occ wine PHQ-2 Answer Date Recorded PHQ-2 Score 0 09/11/2024 Adolescent Education Answer Date Record ed Getting School Help Needed Not on file 01/24 Comments No Sex and Gender Information Value Date Recorded Sex Assigned at Not on file Legal Sex Female 4:12 AM MILL MACHINIST Gender Identity Not on file Sexual Orientation Not on file documented as of this encounter Plan of Treatment Upcoming Encounters Date Type Department Care Team ([facility] Contact Info) Description 03/29/2025 9:00 AM MILL MACHINIST Virtual Visit [facility] [address] [place] [phone] Lesli Castillo [facility] [address] [place] [address] 04/26/2025 8:00 AM MILL MACHINIST [facility] [place] [address] [facility] [address] [place] [phone] Zenobia Allen, MARIA LUZC [address] [facility] [address] [place] [address] documented as of this encounter Procedures Procedure Name Priority Date/Time Associated Diagnosis Comments ZINC Routine 03/15/2025 9:11 AM MILL MACHINIST Bariatric surgery status Postsurgical malabsorption VITAMIN D DEFICIENCY SCREENING Routine 03/15/2025 9:11 AM MILL MACHINIST Bariatric surgery status Postsurgical malabsorption VITAMIN B1 WHOLE BLOOD Routine 03/15/2025 9:11 AM MILL MACHINIST Bariatric surgery status Postsurgical malabsorption SELENIUM Routine 03/15/2025 9:11 AM MILL MACHINIST Postsurgical malabsorption PARATHYROID HORMONE INTACT Routine 03/15/2025 9:11 AM MILL MACHINIST Bariatric surgery status Postsurgical malabsorption IRON AND IRON BINDING CAPACITY Routine 03/15/2025 9:11 AM MILL MACHINIST Bariatric surgery status Postsurgical malabsorption FOLATE Routine 03/15/2025 9:11 AM MILL MACHINIST Postsurgical malabsorption FERRITIN Routine 03/15/2025 9:11 AM MILL MACHINIST Bariatric surgery status Postsurgical malabsorption COPPER LEVEL Routine 03/15/2025 9:11 AM MILL MACHINIST Bariatric surgery status Postsurgical malabsorption COMPREHENSIVE METABOLIC PANEL Routine 03/15/2025 9:11 AM MILL MACHINIST Bariatric surgery status Postsurgical malabsorption IONIZED CALCIUM Routine 03/15/2025 9:11 AM MILL MACHINIST Postsurgical malabsorption VITAMIN B12 Routine 03/15/2025 9:11 AM MILL MACHINIST Bariatric surgery status Postsurgical malabsorption CBC WITH PLATELETS Routine 03/15/2025 9: 11 AM MILL MACHINIST Bariatric surgery status Postsurgical malabsorption documented in this encounter Results * Vitamin B1 whole blood (03/15/2025 9:11 AM MILL MACHINIST) Vitamin B1 Whole Blood Level 126 70 - 180 nmol/L 03/18/2025 5:19 AM MILL MACHINIST [facility] Comment: INTERPRETIVE INFORMATION: Vitamin B1, Whole Blood This assay measures the concentration of thiamine diphosphate (TDP), the primary active form of vitamin B1. Approximately 90 percent of vitamin B1 present in whole blood is TDP. Thiamine and thiamine monophosphate, which comprise the remaining 10 percent, are not measured. This test was developed and its performance characteristics determined by [facility]. It has not been cleared or approved by the US Food and Drug Administration. This test was performed in a CLIA certified laboratory and is intended for clinical purposes. Performed By: [facility] [address] [place] [address] Mascara Molder: Jaime Byrd MD, PhD CLIA Number: [id number] Blood BLOOD SPECIMEN / Unknown Venipuncture / Unknown 03/15/2025 9:11 AM MILL MACHINIST 03/15/2025 9:11 AM MILL MACHINIST Zenobia Allen PA-C LAB - BLOOD ORDERABLES Final Re sult [facility] [address] [place] [address], [facility] [phone] * Zinc (03/15/2025 9:11 AM MILL MACHINIST) Pathologist [facility] Zinc, Serum/Plasma 75.0 60.0 - 120.0 ug/dL 03/17/2025 4:02 AM MILL MACHINIST [facility] Comment: INTERPRETIVE INFORMATION: Zinc, Serum or Plasma [...] developed and its performance characteristics determined by [facility]. It has not been cleared or approved by the US Food and Drug Administration. This test was performed in a CLIA certified laboratory and is intended for clinical purposes. Performed By: [facility] [address] [place] [address] Mascara Molder: Jaime Byrd MD, PhD CLIA Number: [id number] Blood BLOOD SPECIMEN / Unknown Venipuncture / Unknown 03/15/2025 9:11 AM MILL MACHINIST 03/15/2025 9:11 AM MILL MACHINIST Zenobia Allen PA-C LAB - BLOOD ORDERABLES Final Re sult [address] [address], [facility] [phone] * Copper level (03/15/2025 9:11 AM MILL MACHINIST) Copper 152.2 80.0 - 155.0 ug/dL 03/17/2025 4:02 AM MILL MACHINIST [facility] [employer] Comment: INTERPRETIVE INFORMATION: Copper, Serum or Plasma [...] developed and its performance characteristics determined by [facility]. It has not been cleared or approved by the US Food and Drug Administration. This test was performed in a CLIA certified laboratory and is intended for clinical purposes. Performed By: [facility] [address] [place] [address] Mascara Molder: Jaime Byrd MD, PhD CLIA Number: [id number] Blood BLOOD SPECIMEN / Unknown Venipuncture / Unknown 03/15/2025 9:11 AM MILL MACHINIST 03/15/2025 9:11 AM MILL MACHINIST us Zenobia Allen PA-C LAB - BLOOD ORDERABLES Final Re sult [facility] [address] [place] [address], [facility] [phone] * (ABNORMAL) Comprehensive metabolic panel (03/15/2025 9:11 AM MILL MACHINIST) Sodium 142 135 - 145 mmol/L 03/15/2025 4:58 PM MILL MACHINIST [facility] Potassium 3.3(L) 3.4 - 5.3 mmol/L 03/15/2025 4:58 PM MILL MACHINIST [facility] Carbon Dioxide (CO2) 30(H) 22 - 29 mmol/L 03/15/2025 4:58 PM MILL MACHINIST [facility] Anion Gap 9 7 - 15 mmol/L 03/15/2025 4:58 PM MILL MACHINIST [facility] Urea Nitrogen 9.1 8.0 - 23.0 mg/dL 03/15/2025 4:58 PM MILL MACHINIST [facility] Creatinine 0.53 0.51 - 0.95 mg/dL 03/15/2025 4:58 PM MILL MACHINIST [facility] GFR Estimate >90 >60 mL/min/1.7 3m2 03/15/2025 4:58 PM MILL MACHINIST [facility] Comment:eGFR calculated us2020 CKD-EPI equation. Calcium 9.9 8.8 - 10.4 mg/dL 03/15/2025 4:58 PM MILL MACHINIST [facility] Chloride 103 98 - 107 mmol/L 03/15/2025 4:58 PM MILL MACHINIST [facility] Glucose 91 70 - 99 mg/dL 03/15/2025 4:58 PM MILL MACHINIST [facility] Alkaline Phosphatase 88 40 - 150 U/L 03/15/2025 4:58 PM MILL MACHINIST [facility] AST 48(H) 0 - 45 U/L 03/15/2025 4:58 PM MILL MACHINIST [facility] ALT 64(H) 0 - 50 U/L 03/15/2025 4:58 PM MILL MACHINIST [facility] Protein Total 7.4 6.4 - 8.3 g/dL 03/15/2025 4:58 PM MILL MACHINIST [facility] Albumin 4.2 3.5 - 5.2 g/dL 03/15/2025 4:58 PM MILL MACHINIST [facility] Bilirubin Total 0.6 <=1.2 mg/dL 03/15/2025 4:58 PM MILL MACHINIST [facility] Blood BLOOD SPECIMEN / Unknown Venipuncture / Unknown 03/15/2025 9:11 AM MILL MACHINIST 03/15/2025 9:11 AM MILL MACHINIST us Zenobia Allen PA-C LAB - BLOOD ORDERABLES Final Re sult Performing Organization Address City/[facility]/ZIP Co de Phone Number [facility] [address] [facility], [address] * Ferritin (03/15/2025 9:11 AM MILL MACHINIST) Ferritin 119 11 - 328 ng/mL 03/15/2025 4:58 PM MILL MACHINIST [facility] Blood BLOOD SPECIMEN / Unknown Venipuncture / Unknown 03/15/2025 9:11 AM MILL MACHINIST 03/15/2025 9:11 AM MILL MACHINIST us Zenobia Allen PA-C LAB - BLOOD ORDERABLES Final Re sult [facility] [place] [address] [facility], [address] * Iron and Iron Binding Capacity (03/15/2025 9:11 AM MILL MACHINIST) Iron 100 37 - 145 ug/dL 03/15/2025 4:58 PM MILL MACHINIST [facility] Iron Binding Capacity 371 240 - 430 ug/dL 03/15/2025 4:58 PM MILL MACHINIST [facility] Iron Sat Index 27 15 - 46 % 03/15/2025 4:58 PM MILL MACHINIST [facility] Blood BLOOD SPECIMEN / Unknown Venipuncture / Unknown 03/15/2025 9:11 AM MILL MACHINIST 03/15/2025 9:11 AM MILL MACHINIST Zenobia Allen PA-C LAB - BLOOD ORDERABLES Final Re sult Performing Organization Address City/[facility] Co de Phone Number [facility] Core Lab [address] [facility], [address] [phone] * (ABNORMAL) Parathyroid Hormone Intact (03/15/2025 9:11 AM MILL MACHINIST) Parathyroid Hormone Intact 8(L) 18 - 59 pg/mL 03/15/2025 5:14 PM MILL MACHINIST [facility] Comment:Starting on 02/17/20 there has been an update to the reference range for this test. Blood BLOOD SPECIMEN / Unknown Venipuncture / Unknown 03/15/2025 9:11 AM MILL MACHINIST 03/15/2025 9:11 AM MILL MACHINIST Narrative [facility] - 03/15/2025 5:14 PM MILL MACHINIST This result was obtained with the [employer] PTH STAT assay. This reference range differs from PTH assays used in other [facility] laboratories. Zenobia Allen PA-C LAB - BLOOD ORDERABLES Final Re sult Performing Organization Address City/[facility] Co de Phone Number [facility] Core Lab [address] [place] [address], [address] [phone] * (ABNORMAL) Vitamin D Screen (03/15/2025 9:11 AM MILL MACHINIST) Vitamin D, Total (25-Hydroxy) 55(H) 20 - 50 ng/mL 03/15/2025 4:58 PM MILL MACHINIST [facility] Comment:indicates supplement ation, with increased risk of hypercalciuria Blood BLOOD SPECIMEN / Unknown Venipuncture / Unknown 03/15/2025 9:11 AM MILL MACHINIST 03/15/2025 9:11 AM MILL MACHINIST Narrative [facility] - 03/15/2025 4:58 PM MILL MACHINIST Season, race, dietary intake, and treatment affect the concentration of 72-nfgijgx-Qdmkfsr D. Values may decrease during winter months and increase during summer months. Vitamin D determination is routinely performed by an immunoassay specific for 25 hydroxyvitamin D3. If an individual is on vitamin D2(ergocalciferol) supplementation, please specify 25 [place] vitamin D2 and D3 level determination by LCMSMS test VITD23. us Zenobia Allen PA-C LAB - BLOOD ORDERABLES Final Re sult Performing Organization Address City/[facility] Co de Phone Number [facility] [place] [address] [facility], [address] * (ABNORMAL) Vitamin B12 (03/15/2025 9:11 AM MILL MACHINIST) Vitamin B12 1,249(H) 232 - 1,245 pg/mL 03/15/2025 4:58 PM MILL MACHINIST [facility] Blood BLOOD SPECIMEN / Unknown Venipuncture / Unknown 03/15/2025 9:11 AM MILL MACHINIST 03/15/2025 9:11 AM MILL MACHINIST Zenobia Allen PA-C LAB - BLOOD ORDERABLES Final Re sult Performing Organization Address [facility] Co de Phone Number U [facility] [place] [facility] [address] [facility], [address] * CBC with platelets (03/15/2025 9:11 AM MILL MACHINIST) WBC Count 6.97 4.00 - 11.00 10e3/uL 03/15/2025 9:27 AM MILL MACHINIST [facility] RBC Count 5.04 3.80 - 5.20 10e6/uL 03/15/2025 9:27 AM MILL MACHINIST [facility] Hemoglobin 14.4 11.7 - 15.7 g/dL 03/15/2025 9:27 AM MILL MACHINIST [facility] Hematocrit 42.4 35.0 - 47.0 % 03/15/2025 9:27 AM MILL MACHINIST [facility] MCV 84.1 78.0 - 100.0 fL 03/15/2025 9:27 AM MILL MACHINIST [facility] MCH 28.6 26.5 - 33.0 pg 03/15/2025 9:27 AM MILL MACHINIST [facility] MCHC 34.0 31.5 - 36.5 g/dL 03/15/2025 9:27 AM MILL MACHINIST [facility] RDW 13.1 10.0 - 15.0 % 03/15/2025 9:27 AM MILL MACHINIST [facility] Platelet Count 243 150 - 450 10e3/uL 03/15/2025 9:27 AM MILL MACHINIST [facility] Blood BLOOD SPECIMEN / Unknown Venipuncture / Unknown 03/15/2025 9:11 AM MILL MACHINIST 03/15/2025 9:11 AM MILL MACHINIST us Zenobia Allen PA-C LAB - BLOOD ORDERABLES Final Re sult LABORATORY [facility] Lab [address] [facility] (no room number, 1st floor of clinic) [place] [address] * Selenium (03/15/2025 9:11 AM MILL MACHINIST) Selenium 122.4 23.0 - 190.0 ug/L 03/17/2025 4:02 AM MILL MACHINIST [employer] Comment: INTERPRETIVE INFORMATION: Selenium, Serum or Plasma Elevated results may be due to contamination from skin or other collection-related issues, including the use of a noncertified metal-free collection/transport tube. If contamination concerns exist due to elevated levels of serum/plasma selenium, confirmation with a second specimen collected in a certified metal-free tube is recommended. Serum selenium levels can be used in the determination of deficiency or toxicity. Plasma and serum contains 75 percent of the selenium measured in whole blood and reflects recent dietary intake. Selenium deficiency can occur endemically or as a result of sustained TPN or restricted diets and has been associated with cardiomyopathy and may exacerbate hypothyroidism. Selenium toxicity is relatively rare. Excess intake of selenium can result in symptoms consistent with selenosis and include gastrointestinal upset, hair loss, white blotchy nails, and mild nerve damage. This test was developed and its performance characteristics determined by [facility]. It has not been cleared or approved by the US Food and Drug Administration. This test was performed in a CLIA certified laboratory and is intended for clinical purposes. Performed By: [facility] [address] [place] [address] Mascara Molder: Jaime Byrd MD, PhD CLIA Number: [id number] Blood BLOOD SPECIMEN / Unknown Venipuncture / Unknown 03/15/2025 9:11 AM MILL MACHINIST 03/15/2025 9:11 AM MILL MACHINIST us Zenobia BERMAN-C LAB - BLOOD ORDERABLES Final Re sult [facility] [address] [place] [address], [facility] [phone] * Folate (03/15/2025 9:11 AM MILL MACHINIST) Pathologist [facility] Folic Acid 25.4 4.6 - 34.8 ng/mL 03/15/2025 3:56 PM MILL MACHINIST [facility] Blood BLOOD SPECIMEN / Unknown Venipuncture / Unknown 03/15/2025 9:11 AM MILL MACHINIST 03/15/2025 9:11 AM MILL MACHINIST us Zenobia BRAGAC LAB - BLOOD ORDERABLES Final Re sult Performing Organization Address [facility] de Phone Number LABORATORY [facility] Core Lab [address] [facility], [address] [phone] * Ionized Calcium (03/15/2025 9:11 AM MILL MACHINIST) Pathologist [facility] Calcium Ionized Whole Blood 4.8 4.4 - 5.2 mg/dL 03/15/2025 2:05 PM MILL MACHINIST [facility] Blood BLOOD SPECIMEN / Unknown Venipuncture / Unknown 03/15/2025 9:11 AM MILL MACHINIST 03/15/2025 9:11 AM MILL MACHINIST us Zenobia BERMAN-C LAB - BLOOD ORDERABLES Final Re sult Performing Organization Address City/[facility]/ZIP Co de Phone Number [facility] [place] [facility] [address] [facility], [address] [place] [address] documented in this encounter Visit Diagnoses Diagnosis Postsurgical malabsorption Other and unspecified postsurgical nonabsorption Bariatric surgery status documented in this encounter Care Teams Milk Condenser Relationship Specialty Start Date End Date Stevie Zarco MD PCP - General Family Practice 02/20/12 Zenobia Allen PA-C [address] [facility] [address] [place] [address] Assigned Surgical Provider 05/23/23 Vicky Painting [address] [place], [place] [address] Pharmacist Pharmacist 09/11/24 Vicky Painting [address] [place], [place] [address] Assigned MTM Pharmacist 09/18/24 documented as of this encounter
--- OUTSIDE RECORDS SUMMARY | 2025-03-20 12:29 | XMS_ITS | Encounter Summary ---
Author Organization [place] Address [address] [place] [address]. [place] [address] Care Team Providers Care Food Adviser Name Role Phone Stevie Zarco MD Primary Care Provider [phone] Zenobia Allen PA-C Unavailable [phone] Vicky Painting [facility] Unavailable [phone] Vicky Painting [facility] Unavailable [phone] Encounter Details Date Type Department Care Team (Late st Contact Info) Description 10/21/2023 MyC Medical Advice [facility] Surgical Weight Loss Clinic [address] [place] [address] Elba Welch, [facility] [address] [facility] [address] [place], [place] [id number] Social History Tobacco Use Types Packs/Day Years Used Date Smoking Tobacco: Never Smokeless Tobacco: Never Alcohol Use Standard Drinks/Week Comments Yes 0 (1 standard drink = 0.6 oz pur e alcohol) occ wine PHQ-2 Answer Date Recorded PHQ-2 Score 0 05/07/2018 Adolescent Education Answer Date Record ed Getting School Help Needed Not on file 01/24 Comments No Sex and Gender Information Value Date Recorded Sex Assigned at Not on file Legal Sex Female 4:12 AM POWERHOUSE OPERATOR Gender Identity Not on file Sexual Orientation Not on file documented as of this encounter Plan of Treatment Upcoming Encounters Date Type Department Care Team (Late Contact Info) Description 03/29/2025 9:00 AM POWERHOUSE OPERATOR Virtual Visit [facility] [place] [address] [place] [phone] Lesli Castillo SURGICAL CONS WEIGHT LOSS [address] [place] [address] 04/26/2025 8:00 AM POWERHOUSE OPERATOR Virtual Visit [facility] [place] [address] [facility] [address] [place] [phone] Zenobia Allen PA-C [address] [place] [id number] documented as of this encounter Visit Diagnoses Not on filedocumented in this encounter Care Teams Food Adviser Relationship Specialty Start Date End Date Stevie Zarco MD PCP - General Family Practice 02/20/12 Zenobia Allen PA-C [address] [place] [address] Assigned Surgical Provider 05/23/23 Vicky Painting [address] [place], [place] [phone] Pharmacist Pharmacist 09/11/24 Vicky Painting [facility] [address] [place] [address] Assigned MTM Pharmacist 09/18/24 documented as of this encounter
--- OUTSIDE RECORDS SUMMARY | 2025-03-20 12:29 | XMS_ITS | Encounter Summary ---
Author Organization [place] Address [address] [place] [address] Care Team Providers Care Bulldozer Press Operator Name Role Phone Stevie Zarco MD Primary Care Provider [phone] Josafat Farfan MD Unavailable Unavailable Josafat Farfan MD Unavailable Unavailable Albert Meehan DPM Unavailable [phone] Zenobia Allen PA-C Unavailable [phone] Vicky Painting [facility] Unavailable [phone] Vicky Painting [facility] Unavailable [phone] Encounter Details Date Type Department Care Team ([facility] Contact Info) Description 06/16/2012 [facility] [place] [address] [place] [phone] Sonal Bond PA-C [address] [place] [address] Social History Tobacco Use Types Packs/Day Years Used Date Smoking Tobacco: Never Alcohol Use Standard Drinks/Week Comments Yes 0 (1 standard drink = 0.6 oz pur e alcohol) Comments No Sex and Gender Information Value Date Recorded Sex Assigned at Not on file 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 Gender Identity Not on file Sexual Orientation Not on file documented as of this encounter Plan of Treatment Upcoming Encounters Date Type Department Care Team ([facility] Contact Info) Description 03/29/2025 9:00 AM DRILL BIT SHARPENER Virtual Visit [facility] [place] [address] [facility] [address] [place] [phone] Lesli Castillo SURGICAL CONS WEIGHT LOSS [address] [place] [address] 04/26/2025 8:00 AM DRILL BIT SHARPENER Virtual Visit [facility] [place] [address] [facility] [address] [place] [phone] Zenobia Allen PA-C [address] [place] [id number] documented as of this encounter Visit Diagnoses Not on filedocumented in this encounter Care Teams Bulldozer Press Operator Relationship Specialty Start Date End Date Stevie Zarco MD PCP - General Family Practice 02/20/12 Josafat Farfan MD NO INFO AVAILABLE 02/14/2022 PCP - Assigned PCP 08/02/17 07/01/18 Josafat Farfan MD NO INFO AVAILABLE 02/14/2022 Assigned PCP 08/02/17 11/10/20 Albert Meehan DPM [address] [facility] [address] [place] [address] Assigned Musculoskeletal Provider 02/19/20 06/25/20 Zenobia Allen PA-C [address] [place] [address] Assigned Surgical Provider 05/23/23 Vicky Painting, [facility] [address] [place] [address] Pharmacist Pharmacist 09/11/24 Vicky Painting [facility] [address] [place] [address] Assigned MTM Pharmacist 09/18/24 documented as of this encounter
--- OUTSIDE RECORDS SUMMARY | 2025-03-20 12:30 | XMS_ITS | Clinical Summary ---
Author Organization [facility] Address [address] [place] [address] Care Team Providers Care Portable Trackman Name Role Phone Stevie Zarco MD Primary Care Provider Encounters Date Type Department Care Team Description 12/22/2024 7:30 AM CDT Ancillary Procedure [facility] [address] [place] [address] Anesthesia of skin; Paresthesia of skin from Last 3 Months Social History Tobacco Use Types Packs/Day Years Used Date Smoking Tobacco: Never Assessed Comments Unknown Sex and Gender Information Value Date Recorded Sex Assigned at Not on file Legal Sex Female 12:09 PM CDT Gender Identity Not on file Sexual Orientation Not on file Plan of Treatment Health Maintenance Due Date Last Done Comments Colonoscopy 1965 Hepatitis C Screening 1965 Lipid Screening 1965 Pap Smear 1965 Anxiety Screening (TIMI-2) 1964 Depression Assessment (PHQ-2) 1964 Pneumococcal 50+ Years (1 of 2 - PCV) 1982 Yearly Review of HCD 2013 COVID-19 Vaccine ( season) 2024 08/20/2020, 07/30/2020 Influenza Vaccine (#1) 2024 , 01/22/2023, 03/20/2022, Additional history exists Mammogram Screening 03/02/2026 03/02/2024, 03/02/2024, 01/04/2023, Additional history exists Adult Tetanus Booster 03/30/2034 03/30/2024 , 09/24/2013, 07/30/2003 RSV Vaccines (1 - 1-dose 75+ series) 2038 Zoster Vaccine Completed 02/17/2020, 11/17/2019 Meningococcal B Vaccine Aged Out No l onger eligible based on patient's age to complete this topic Procedures Procedure Name Priority Date/Time Associated Diagnosis Comments EMG 1 EXTREMITY Routine 12/22/2024 7:31 AM CDT Anesthesia of skin Paresthesia of skin from Last 3 Months Results * EMG 1 EXTREMITY (12/22/2024 7:31 AM CDT) Narrative Radha Sullivan MD - 12/22/2024 12:15 PM CDT Table formatting from the original result was not included. Images from the original result were not included. [facility] [address] [place] [address] Opt 2 Electromyography (EMG) Study Test Date: 12/22/2024 Patient: Roula Carter : 1965 Planning Feeder: Ade Sex: Female Ref Phys: Parish Cee PA-C [id number] Patient Symptoms/Indication for EMG: Patient is a 59 year-old who presents with numbness, tingling and weakness of the right upper extremity. Symptoms have been present for about 4 months. Symptoms are localized in digits 1 through 4. Testing was performed by the [facility]'s EMG equipment and supplies. Temp: warmed RUE 34.0 C EMG & NCV Findings: Evaluation of the right median motor nerve showed prolonged distal onset latency (5.9 ms). The right median sensory nerve showed no response (Wrist). All remaining nerves (as indicated in the following tables) were within normal limits. All F Wave latencies were within normal limits. Needle evaluation of the right abductor pollicis brevis muscle showed a few large motor unit amplitude, increased motor unit duration, increased polyphasic, and moderate reduced recruitment. All remaining muscles were normal as shown in the table. Impression: Abnormal study suggestive of a Moderate right median neuropathy at wrist (carpal tunnel syndrome) Electronically Signed By: Radha Sullivan MD Nerve Conduction Studies Anti Sensory Summary Table Stim Site NR Peak (ms) Norm Peak (ms) O-P Amp ( V) Norm O-P Amp Site1 Site2 Dist (cm) Norm Dave (m/s) Right Median Anti Sensory (2nd Digit) Wrist NR <3.5 >15 Wrist 2nd Digit 13.0 Right Radial Anti Sensory (Base 1st Digit) Wrist 1.9 <3.0 51.3 >10 Wrist Base 1st Digit 10.0 Site 2 1.9 49.7 Right Ulnar Anti Sensory (5th Digit) Wrist 3.0 <3.5 34.1 >10 Wrist 5th Digit 13.0 Site 2 3.0 30.6 Motor Summary Table Stim Site NR Onset (ms) Norm Onset (ms) O-P Amp (mV) Norm O-P Amp Site1 Site2 Dist (cm) Dave (m/s) Norm Dave (m/s) Right Median Motor (Abd Poll Brev-7cm) Wrist 5.9 <4.5 10.3 >5 Elbow Wrist 25.0 60 >47 Elbow 10.1 10.1 >5 Right Ulnar Motor (Abd Dig Minimi-7cm) Wrist 2.3 <3.8 13.7 >5 Wrist B Elbow 22.0 65 >47 B Elbow 5.7 12.6 A Elbow Wrist 31.0 62 >47 A Elbow 7.3 11.9 B Elbow A Elbow 11.0 69 >47 F Wave Studies NR F-Lat (ms) Lat Norm (ms) L-R F-Lat (ms) Right Median (Mrkrs) (Abd Poll Brev) 26.74 <32 Right Ulnar (Mrkrs) (Abd Dig Min) 23.52 <32 EMG Side Muscle Nerve Root Ins Act Fibs/Pwaves Amp Dur Poly Recrt Fasics Comment Right Biceps Musculocut C5-6 Nml 0 Nml Nml Nml Nml 0 Right BrachioRad Radial C5-6 Nml 0 Nml Nml Nml Nml 0 Right Triceps Radial C6-7-8 Nml 0 Nml Nml Nml Nml 0 Right ExtDigCom Radial (Post Int) C7-8 Nml 0 Nml Nml Nml Nml 0 Right FlexCarRad Median C6-7 Nml 0 Nml Nml Nml Nml 0 Right 1stDorInt Ulnar C8-T1 Nml 0 Nml Nml Nml Nml 0 Right Abd Poll Brev Median C8-T1 Nml 0 few large Incr 1+ Reduced-Mod 0 Waveforms: us No Doctor EMG ORDERABLE Final Result from Last 3 Months Insurance [facility] Care Teams Portable Trackman Relationship Specialty [place] [address] [place] [address] PCP - General Family Medicine - 12/22/24
--- OUTSIDE RECORDS SUMMARY | 2025-03-20 12:30 | XMS_ITS | Encounter Summary ---
Author Organization [place] Address [address] [place] [address] Care Team Providers Care Business Excellence Leader Name Role Phone Stevie Zarco MD Primary Care Provider [phone] Zenobia Allen PA-C Unavailable [phone] Vicky Painting [facility] Unavailable [phone] Vicky Painting [facility] Unavailable [phone] Encounter Details Date Type Department Care Team (Late Contact Info) Description 05/29/2023 MyC Medical Advice [facility] [address] [place] [phone] Sofia Alston RN Social History Tobacco Use Types Packs/Day Years [...] on file Legal Sex Female 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 FLAG DECORATOR Gender Identity Not on file Sexual Orientation Not on file documented as of this encounter Plan of Treatment Upcoming Encounters Date Type Department Care Team ([facility] Contact Info) Description 03/29/2025 9:00 AM FLAG DECORATOR Virtual Visit [facility] [address] [place] [address] Lesli Castillo [facility] [address] [place] [address] 04/26/2025 8:00 AM FLAG DECORATOR Virtual Visit [facility] Anisha [address] [facility] [address] [place] [address] Zenobia Allen PA-C [address] [place] [id number] documented as of this encounter Visit Diagnoses Not on filedocumented in this encounter Care Teams Business Excellence Leader Relationship Specialty Start Date End Date Stevie Zarco MD PCP - General Family Practice 02/20/12 Zenobia Allen PA-C [address] [place] [address] Assigned Surgical Provider 05/23/23 Vicky Painting [facility] [address] [place] [address] Pharmacist Pharmacist 09/11/24 Vicky Painting [facility] [address] [place] [address] Assigned MTM Pharmacist 09/18/24 documented as of this encounter
--- OUTSIDE RECORDS SUMMARY | 2025-03-20 12:30 | XMS_ITS | Clinical Summary ---
Author Organization [facility] Address [address] [place] [address] Care Team Providers Care Dry Roller Name Role Phone Stevie Zarco MD Primary Care Provider [phone] Zenobia Allen PA-C Unavailable [phone] Vikcy Painting [facility] Unavailable [phone] Vicky Painting [facility] Unavailable [phone] Allergies Active Allergy Reactions Criticality Noted Date Comments Amoxicillin 02/20/2012 Erythromycin 02/20/2012 Penicillins 02/20/2012 Medications Calcium Carbonate-Vit chao D (CALCIUM + D PO) Take 600 mg by mouth Active OMEPRAZOLE PO Take 20 mg by mouth every morning Active cyanocolbalam in (VITAMIN B-12) 100 MCG tablet Take 1,000 mcg by mouth daily Active VITAMIN D, CHOLECALCIFER OL, PO Take 5,000 Units by mouth daily Active Pediatric Multivitamins -Iron (MULTIVITAMIN S PLUS IRON CHILD) 18 MG CHEW Take 1 chew tab by mouth daily Active ipratropium (ATROVENT) 0.06 % nasal spray [place] 2 sprays in nostril. 08/29/19 25 Active phentermine (ADIPEX-P) 37.5 MG tablet Take 37.5 mg by mouth. 03/30/20 24 Active Semaglutide-W eight Management (WEGOVY) 0.5 MG/0.5ML penIndication s:Hx of obesity Inject 0.5 mg subcutaneously once a week. 2 mL 1 10/31/20 25 Active tirzepatide-w eight management (ZEPBOUND) 2.5 MG/0.5ML vialIndicatio ns:Hx of obesity,Histo ry of Ezio-en-Y gastric bypass Inject 0.5 mLs (2.5 mg) subcutaneously once a week. 2 mL 1 09/12/19 25 2024 Discontinued Active Problems Problem Noted Date Diagnosed Date Osteopenia, unspecified location 05/17/2023 Assessment & Plan (05/17/2023 2:15 PM FINANCIAL ANALYST INTERN): Seen on DEXA scan. Repeat DEXA for 2024. Discuss with PCP if needing treatment - recommend IV over oral bisphosphonate if indicated d/t ulcer risk. Continue vitamin D and calcium. Borderline high cholesterol 01/17/2023 Assessment & Plan (02/26/2025 12:03 PM CDT): This is a weight related comorbidity that I would anticipate to improve with weight management. Assessment & Plan (01/17/2023 4:32 PM CDT): Discussed in clinic visit. Anticipate improvement with weight loss. Hx of obesity 01/17/2023 Assessment & Plan (02/26/2025 12:05 PM CDT): We reviewed recommendations for muscle conservation including [...] Needing to maintain weight rather than looking for any more weight loss and she is agreeable to this. Assessment & Plan (01/20/2024 3:26 PM CDT): Needing to pivot to weight maintenance. Try 1 mg Wegovy (insurance allowing) - may have to stop if still having weight loss or insurance doesn't cover. Be in touch on MyChart for the vitamins and labs. Due for next surgical followup in 6 months and recheck with dietitians. Assessment & Plan (01/17/2023 4:35 PM CDT): Controlled w/bariatric surgery. Gastric bypass Dr. Watt 04/2009 Initial BMI 35.4, initial weight 169.6 lbs Start Wegovy Heartburn 11/15/2017 Iron deficiency anemia following bariatric surge ry 11/15/2017 Assessment & Plan (05/17/2023 2:14 PM FINANCIAL ANALYST INTERN): Had not restarted MV with appropriate iron - repeat labs and start multivitamin recommended. Further recs pending lab recheck. Weight gain 08/16/2017 Bariatric surgery status 08/16/2017 Assessment & Plan (02/26/2025 12:09 PM CDT): S/p RNY Start taking recommended post-op vitamins. Labs ordered per protocol. Assessment & Plan (01/17/2023 4:32 PM CDT): Bypass [address] Watt Continue taking recommended post-op vitamins. Labs ordered per protocol. Postsurgical malabsorption 08/16/2017 Assessment & Plan (05/17/2023 2:12 PM FINANCIAL ANALYST INTERN): Continue vitamins. Repeat labs. Assessment & Plan (01/17/2023 4:18 PM CDT): Restart taking recommended post-op vitamins. Labs ordered per protocol. Gastroesophageal reflux disease without esophagi tis 08/16/2017 Assessment & Plan (01/17/2023 4:18 PM CDT): Discussed in clinic visit. Anticipate improvement with weight loss. Also reduce alcohol intake Resolved Problems Problem Noted Date Diagnosed Date Resolved Date Overweight (BMI 25.0-29.9) 01/17/2023 1 Assessment & Plan (05/17/2023 2:13 PM FINANCIAL ANALYST INTERN): Patient was congratulated on wt loss success thus far. Healthy habits to assist with further weight loss were discussed. Roula will continue to wait for Wegovy availability prior to starting the full titration. Assessment & Plan (01/17/2023 4:36 PM CDT): Hx of Morbid Obesity now with weight regain Gastric bypass Dr. Watt 04/2009 Initial BMI 35.4, initial weight 169.6 lbs Now BMI 27.59 w/comorbid GERD/borderline high cholesterol. Start Wegovy Obesity (BMI 30-39.9) 08/16/20172017 Encounters Date Type Department Care Team Description 03/15/2025 9:00 AM FINANCIAL ANALYST INTERN Lab [facility] [address] [place] [address] Postsurgical malabsorption; Bariatric surgery status 03/15/2025 Results Follow-Up [facility] Weight [facility] [place] [address] [place] [phone] Zenobia Allen PA-C Dx: Postsurgical malabsorption (Primary Dx) 03/15/2025 Travel 02/26/2025 7:45 AM CDT Virtual Visit [facility] Weight Loss [address] [place] [phone] Zenobia Allen PA-C Hx of obesity (Primary Dx); Borderline high cholesterol; Bariatric surgery status; Postsurgical malabsorption 02/21/2025 MyC Medical Advice Initial Department [address] [place] [phone] Mychart, [facility] 02/21/2025 MyC Medical Advice Initial Department [address] [place] [phone] Mychart, [facility] 02/21/2025 MyC Medical Advice Initial Department [address] [place] [phone] Mychart, [facility] 02/19/2025 MyC Medical Advice [facility] Surgical Weight Loss [address] [place] [phone] Tabatha Dunn RN from Last 3 Months Immunizations Immunization Administration Dates Next Due Influenza (IIV3) PF 01/31/2015,03/27/2007,2005 Influenza (prior to 2023) 04/01/2009 Influenza Vaccine >6 months,quad, PF 02/06/2016 TDAP Vaccine (Boostrix) 09/24/2013 Td (Adult), Adsorbed 07/30/2003 Social History Tobacco Use Types Packs/Day Years [...] on file Legal Sex Female 4:12 AM FINANCIAL ANALYST INTERN Gender Identity Not on file Sexual Orientation Not on file Last Filed Vital Signs Vital Sign Reading Time Taken Comments Blood Pressure 147/83 01/20/2024 2:40 PM CDT Pulse 103 01/20/2024 2:40 PM CDT Temperature 36.4 C (97.6 F) 07/16/2018 10:25 AM CDT Respiratory Rate 16 01/20/2024 2:40 PM CDT Oxygen Saturation 98% 01/20/2024 2:40 PM CDT Inhaled Oxygen Concentration - - Weight 49.9 kg (110 lb) 02/25/2025 3:35 PM CDT Height 147.3 cm (4' 10) 02/25/2025 3:35 PM CDT Body Mass Index 22.99 02/25/2025 3:35 PM CDT Plan of Treatment Upcoming Encounters Date Type Department Care Team (Late st Contact Info) Description 03/29/2025 9:00 AM FINANCIAL ANALYST INTERN Virtual Visit [facility] [place] [address] [facility] [place] [phone] Lesli Castillo [facility] [address] [place] [phone] 04/26/2025 8:00 AM FINANCIAL ANALYST INTERN Virtual Visit [facility] [place] [address] [facility] [place] [phone] Zenobia Allen, PAStephyC [address] [place] [address] Health Maintenance Due Date Last Done Comments ADVANCE CARE PLANNING 1963 ANNUAL REVIEW OF HM ORDERS [address] CT COLONOGRAPHY 1963 FIT 1963 FLEX SIG 1963 sDNA (Cologuard) 1963 HEPATITIS C SCREENING 1981 LIPID 2003 PNEUMOCOCCAL VACCINE 50+ YEARS (1 of 1 - PCV) 2013 COVID-19 VACCINE (3 - season) 2024 08/20/2020, 07/30/2020 YEARLY PREVENTIVE VISIT 03/30/2025 03/30/20, 12/18/2022, 03/20/2022, Additional history exists PAP 12/18/2025 12/18/2022, 12/18/2022 MAMMO SCREENING 03/02/2026 03/02/2024, 07/2023, 01/04/2023, Additional history exists DIABETES SCREENING 03/15/2028 03/15/2025, 0 07/03/2024, 06/11/2023, Additional history exists COLONOSCOPY 06/02/2030 06/02/2020 COLORECTAL CANCER SCREENING 06/02/2030 DTAP/TDAP/TD VACCINE (3 - Td or Tdap) 03/30/2034 03/30/2024, 09/24/2013, 07/30/2003 RSV VACCINE (1 - 1-dose 75+ series) 2038 HIV SCREENING Completed 06/01/2019 ZOSTER VACCINE Completed 02/17/2020, 11/17/2019 PHQ-2 (once per calendar year) Completed 09/11/2024, 08/22/2017 INFLUENZA VACCINE Completed 01/28/2025, , 01/22/2023, Additional history exists HPV VACCINE (No Doses Required) Completed MENINGITIS VACCINE Aged Out No longer eligible based on patient's age to complete this topic Medical Devices Implanted Type Area Fruit Or Nut Crops Farm Manager Device Identifier Shelf Expiration Date Model / Serial / Lot Graft Bone Putty Dbx 01ml [id number] Implanted:Qty: 1 on 07/16/2018 by Albert Meehan DPM at [facility] Bone/Tis ahsan/Biol ogic Left: Foot MUSCULOSKELETAL LIVE 02/19/2020 [id number] / [id number] / Screw 2.7 #14 Implanted:Qty: 1 on 02/03/2015 by Ryan Bee DPM at [facility] Right: Foot SYNTHES 202.014 / / [id number] 28mm Cannulated Screw Implanted:Qty: 1 on 07/16/2018 by Ablert Meehan DPM at [facility] Left: Foot AR-8740PT S / / [id number] 3.0 [place] Screw Implanted:Qty: 1 on 07/16/2018 by Albert Meehan DPM at [facility] Left: Foot AR-8933V- 10 / / [id number] JUL 2018 3.0 Screw [place] 12mm Implanted:Qty: 2 on 07/16/2018 by Albert Meehan DPM at [facility] Left: Foot ARTHREX AR-8933V- 12 / / 3mm Cortical Acrew Implanted:Qty: 1 on 07/16/2018 by Albert Meehan DPM at [facility] Left: Foot AR-8933-1 [id number] JUL 2018 Plate Implanted:Qty: 1 on 07/16/2018 by Albert Meehan DPM at [facility] Left: Foot AR-8944-S / / [id number] JUL 2018 Procedures Procedure Name Priority Date/Time Associated Diagnosis Comments VITAMIN B1 WHOLE BLOOD Routine 03/15/2025 9:11 AM FINANCIAL ANALYST INTERN Bariatric surgery status Postsurgical malabsorption ZINC Routine 03/15/2025 9:11 AM FINANCIAL ANALYST INTERN Bariatric surgery status Postsurgical malabsorption COPPER LEVEL Routine 03/15/2025 9:11 AM FINANCIAL ANALYST INTERN Bariatric surgery status Postsurgical malabsorption COMPREHENSIVE METABOLIC PANEL Routine 03/15/2025 9:11 AM FINANCIAL ANALYST INTERN Bariatric surgery status Postsurgical malabsorption FERRITIN Routine 03/15/2025 9:11 AM FINANCIAL ANALYST INTERN Bariatric surgery status Postsurgical malabsorption IRON AND IRON BINDING CAPACITY Routine 03/15/2025 9:11 AM FINANCIAL ANALYST INTERN Bariatric surgery status Postsurgical malabsorption PARATHYROID HORMONE INTACT Routine 03/15/2025 9:11 AM FINANCIAL ANALYST INTERN Bariatric surgery status Postsurgical malabsorption VITAMIN D DEFICIENCY SCREENING Routine 03/15/2025 9:11 AM FINANCIAL ANALYST INTERN Bariatric surgery status Postsurgical malabsorption VITAMIN B12 Routine 03/15/2025 9:11 AM FINANCIAL ANALYST INTERN Bariatric surgery status Postsurgical malabsorption CBC WITH PLATELETS Routine 03/15/2025 9: 11 AM FINANCIAL ANALYST INTERN Bariatric surgery status Postsurgical malabsorption SELENIUM Routine 03/15/2025 9:11 AM FINANCIAL ANALYST INTERN Postsurgical malabsorption FOLATE Routine 03/15/2025 9:11 AM FINANCIAL ANALYST INTERN Postsurgical malabsorption IONIZED CALCIUM Routine 03/15/2025 9:11 AM FINANCIAL ANALYST INTERN Postsurgical malabsorption MA SCREEN WITH IMPLANTS DIGITAL BILAT Routine 11/20/2010 1:29 PM CDT from Last 3 Months or Most Recently Relevant to Health Maintenance Results * Zinc (03/15/2025 9:11 AM [facility]) Zinc, Serum/Plasma 75.0 60.0 - 120.0 ug/dL 03/17/2025 4:02 AM FINANCIAL ANALYST INTERN [facility] Comment: INTERPRETIVE INFORMATION: Zinc, Serum or Plasma [...] developed and its performance characteristics determined by [facility]. It has not been cleared or approved by the US Food and Drug Administration. This test was performed in a CLIA certified laboratory and is intended for clinical purposes. Performed By: [facility] [address] [place] [address] Oil Derrick Operator: Jaime Byrd MD, PhD CLIA Number: [id number] Blood BLOOD SPECIMEN / Unknown Venipuncture / Unknown 03/15/2025 9:11 AM FINANCIAL ANALYST INTERN 03/15/2025 9:11 AM FINANCIAL ANALYST INTERN Zenobia Allen PA-C LAB - BLOOD ORDERABLES Final Re sult Performing Organization Address City/[facility]/ZIP Co de Phone Number [id number] [address] [place] [phone], [facility] [phone] * (ABNORMAL) Vitamin D Screen (03/15/2025 9:11 AM FINANCIAL ANALYST INTERN) Vitamin D, Total (25-Hydroxy) 55(H) 20 - 50 ng/mL 03/15/2025 4:58 PM FINANCIAL ANALYST INTERN [facility] Comment:indicates supplement ation, with increased risk of hypercalciuria Blood BLOOD SPECIMEN / Unknown Venipuncture / Unknown 03/15/2025 9:11 AM FINANCIAL ANALYST INTERN 03/15/2025 9:11 AM FINANCIAL ANALYST INTERN Narrative [facility] - 03/15/2025 4:58 PM FINANCIAL ANALYST INTERN Season, race, dietary intake, and treatment affect the concentration of 26-avldmsj-Shrmtmg D. Values may decrease during winter months and increase during summer months. Vitamin D determination is routinely performed by an immunoassay specific for 25 hydroxyvitamin D3. If an individual is on vitamin D2(ergocalciferol) supplementation, please specify 25 [place] vitamin D2 and D3 level determination by LCMSMS test VITD23. us Zenobia Allen PA-C LAB - BLOOD ORDERABLES Final Re sult [facility] [place] [facility] [address] [facility], [address] [place] [phone] * Vitamin B1 whole blood (03/15/2025 9:11 AM FINANCIAL ANALYST INTERN) Vitamin B1 Whole Blood Level 126 70 - 180 nmol/L 03/18/2025 5:19 AM FINANCIAL ANALYST INTERN [facility] Comment: INTERPRETIVE INFORMATION: Vitamin B1, Whole Blood This assay measures the concentration of thiamine diphosphate (TDP), the primary active form of vitamin B1. Approximately 90 percent of vitamin B1 present in whole blood is TDP. Thiamine and thiamine monophosphate, which comprise the remaining 10 percent, are not measured. This test was developed and its performance characteristics determined by [facility]. It has not been cleared or approved by the US Food and Drug Administration. This test was performed in a CLIA certified laboratory and is intended for clinical purposes. Performed By: [facility] [address] [place] [address] Oil Derrick Operator: Jaime Byrd MD, PhD CLIA Number: [id number] Blood BLOOD SPECIMEN / Unknown Venipuncture / Unknown 03/15/2025 9:11 AM FINANCIAL ANALYST INTERN 03/15/2025 9:11 AM FINANCIAL ANALYST INTERN us Zenobia Allen PA-C LAB - BLOOD ORDERABLES Final Re sult [facility] [address] [place] [phone], [facility] [phone] * Selenium (03/15/2025 9:11 AM FINANCIAL ANALYST INTERN) Selenium 122.4 23.0 - 190.0 ug/L 03/17/2025 4:02 AM FINANCIAL ANALYST INTERN [facility] Comment: INTERPRETIVE INFORMATION: Selenium, Serum or Plasma [...] developed and its performance characteristics determined by [facility]. It has not been cleared or approved by the US Food and Drug Administration. This test was performed in a CLIA certified laboratory and is intended for clinical purposes. Performed By: [facility] [address] [place] [address] Oil Derrick Operator: Jaime Byrd MD, PhD CLIA Number: [id number] Blood BLOOD SPECIMEN / Unknown Venipuncture / Unknown 03/15/2025 9:11 AM FINANCIAL ANALYST INTERN 03/15/2025 9:11 AM FINANCIAL ANALYST INTERN us Zenobia Allen PA-C LAB - BLOOD ORDERABLES Final Re sult Performing Organization Address [facility] Co de Phone Number [facility] [address] [place] [phone] [phone] * (ABNORMAL) Parathyroid Hormone Intact (03/15/2025 9:11 AM FINANCIAL ANALYST INTERN) Parathyroid Hormone Intact 8(L) 18 - 59 pg/mL 03/15/2025 5:14 PM FINANCIAL ANALYST INTERN [facility] Comment:Starting on 02/17/20 there has been an update to the reference range for this test. Blood BLOOD SPECIMEN / Unknown Venipuncture / Unknown 03/15/2025 9:11 AM FINANCIAL ANALYST INTERN 03/15/2025 9:11 AM FINANCIAL ANALYST INTERN Narrative [facility] - 03/15/2025 5:14 PM FINANCIAL ANALYST INTERN This result was obtained with the [employer] Elecsys PTH STAT assay. This reference range differs from PTH assays used in other [facility] laboratories. us Zenobia Allen PA-C LAB - BLOOD ORDERABLES Final Re sult [facility] [place] [facility] [address] [facility], [address] [place] [address], [facility] * Iron and Iron Binding Capacity (03/15/2025 9:11 AM FINANCIAL ANALYST INTERN) Iron 100 37 - 145 ug/dL 03/15/2025 4:58 PM FINANCIAL ANALYST INTERN [facility] Iron Binding Capacity 371 240 - 430 ug/dL 03/15/2025 4:58 PM FINANCIAL ANALYST INTERN [facility] Iron Sat Index 27 15 - 46 % 03/15/2025 4:58 PM FINANCIAL ANALYST INTERN [facility] Blood BLOOD SPECIMEN / Unknown Venipuncture / Unknown 03/15/2025 9:11 AM FINANCIAL ANALYST INTERN 03/15/2025 9:11 AM FINANCIAL ANALYST INTERN us Zenobia Allen PA-C LAB - BLOOD ORDERABLES Final Re sult LABORATORY [facility] [address] [facility], [address] * Folate (03/15/2025 9:11 AM FINANCIAL ANALYST INTERN) Folic Acid 25.4 4.6 - 34.8 ng/mL 03/15/2025 3:56 PM FINANCIAL ANALYST INTERN [facility] Blood BLOOD SPECIMEN / Unknown Venipuncture / Unknown 03/15/2025 9:11 AM FINANCIAL ANALYST INTERN 03/15/2025 9:11 AM FINANCIAL ANALYST INTERN us Zenobia Allen PA-C LAB - BLOOD ORDERABLES Final Re sult LABORATORY [facility] [address] [facility], [address] * Ferritin (03/15/2025 9:11 AM FINANCIAL ANALYST INTERN) Ferritin 119 11 - 328 ng/mL 03/15/2025 4:58 PM FINANCIAL ANALYST INTERN [facility] Blood BLOOD SPECIMEN / Unknown Venipuncture / Unknown 03/15/2025 9:11 AM FINANCIAL ANALYST INTERN 03/15/2025 9:11 AM FINANCIAL ANALYST INTERN us Zenobia Allen PA-C LAB - BLOOD ORDERABLES Final Re sult [facility] [place] [facility] [address] [facility], [address] [place] [phone] * Copper level (03/15/2025 9:11 AM FINANCIAL ANALYST INTERN) Copper 152.2 80.0 - 155.0 ug/dL 03/17/2025 4:02 AM FINANCIAL ANALYST INTERN [facility] Comment: INTERPRETIVE INFORMATION: Copper, Serum or Plasma [...] developed and its performance characteristics determined by [facility]. It has not been cleared or approved by the US Food and Drug Administration. This test was performed in a CLIA certified laboratory and is intended for clinical purposes. Performed By: [facility] [address] [place] [address] Oil Derrick Operator: Jaime Byrd MD, PhD CLIA Number: [id number] Blood BLOOD SPECIMEN / Unknown Venipuncture / Unknown 03/15/2025 9:11 AM FINANCIAL ANALYST INTERN 03/15/2025 9:11 AM FINANCIAL ANALYST INTERN Zenobia Allen PA-C LAB - BLOOD ORDERABLES Final Re sult N4[facility] [address] [place] [phone], [facility] [phone] * (ABNORMAL) Comprehensive metabolic panel (03/15/2025 9:11 AM FINANCIAL ANALYST INTERN) Sodium 142 135 - 145 mmol/L 03/15/2025 4:58 PM FINANCIAL ANALYST INTERN [facility] Potassium 3.3(L) 3.4 - 5.3 mmol/L 03/15/2025 4:58 PM FINANCIAL ANALYST INTERN [facility] Carbon Dioxide (CO2) 30(H) 22 - 29 mmol/L 03/15/2025 4:58 PM FINANCIAL ANALYST INTERN [facility] Anion Gap 9 7 - 15 mmol/L 03/15/2025 4:58 PM FINANCIAL ANALYST INTERN [facility] Urea Nitrogen 9.1 8.0 - 23.0 mg/dL 03/15/2025 4:58 PM FINANCIAL ANALYST INTERN [facility] Creatinine 0.53 0.51 - 0.95 mg/dL 03/15/2025 4:58 PM FINANCIAL ANALYST INTERN [facility] GFR Estimate >90 >60 mL/min/1.7 3m2 03/15/2025 4:58 PM FINANCIAL ANALYST INTERN [facility] Comment:eGFR calculated us2020 CKD-EPI equation. Calcium 9.9 8.8 - 10.4 mg/dL 03/15/2025 4:58 PM FINANCIAL ANALYST INTERN [facility] Chloride 103 98 - 107 mmol/L 03/15/2025 4:58 PM FINANCIAL ANALYST INTERN [facility] Glucose 91 70 - 99 mg/dL 03/15/2025 4:58 PM FINANCIAL ANALYST INTERN [facility] Alkaline Phosphatase 88 40 - 150 U/L 03/15/2025 4:58 PM FINANCIAL ANALYST INTERN [facility] AST 48(H) 0 - 45 U/L 03/15/2025 4:58 PM FINANCIAL ANALYST INTERN [facility] ALT 64(H) 0 - 50 U/L 03/15/2025 4:58 PM FINANCIAL ANALYST INTERN [facility] Protein Total 7.4 6.4 - 8.3 g/dL 03/15/2025 4:58 PM FINANCIAL ANALYST INTERN [facility] Albumin 4.2 3.5 - 5.2 g/dL 03/15/2025 4:58 PM FINANCIAL ANALYST INTERN [facility] Bilirubin Total 0.6 <=1.2 mg/dL 03/15/2025 4:58 PM FINANCIAL ANALYST INTERN [facility] Blood BLOOD SPECIMEN / Unknown Venipuncture / Unknown 03/15/2025 9:11 AM FINANCIAL ANALYST INTERN 03/15/2025 9:11 AM FINANCIAL ANALYST INTERN us Zenobia Allen PA-C LAB - BLOOD ORDERABLES Final Re sult [facility] [place] [facility] [address], [address] * Ionized Calcium (03/15/2025 9:11 AM FINANCIAL ANALYST INTERN) Pathologist [facility] Calcium Ionized Whole Blood 4.8 4.4 - 5.2 mg/dL 03/15/2025 2:05 PM FINANCIAL ANALYST INTERN [facility] Blood BLOOD SPECIMEN / Unknown Venipuncture / Unknown 03/15/2025 9:11 AM FINANCIAL ANALYST INTERN 03/15/2025 9:11 AM FINANCIAL ANALYST INTERN Zenobia BRAGAC LAB - BLOOD ORDERABLES Final Re sult [facility] [place] [facility] [address] [facility], [address] * (ABNORMAL) Vitamin B12 (03/15/2025 9:11 AM FINANCIAL ANALYST INTERN) [facility] Vitamin B12 1,249(H) 232 - 1,245 pg/mL 03/15/2025 4:58 PM FINANCIAL ANALYST INTERN [facility] Blood BLOOD SPECIMEN / Unknown Venipuncture / Unknown 03/15/2025 9:11 AM FINANCIAL ANALYST INTERN 03/15/2025 9:11 AM FINANCIAL ANALYST INTERN us Zenobia BRAGAC LAB - BLOOD ORDERABLES Final Re sult LABORATORY [facility] [place] [facility] [address] [facility], [address] * CBC with platelets (03/15/2025 9:11 AM FINANCIAL ANALYST INTERN) WBC Count 6.97 4.00 - 11.00 10e3/uL 03/15/2025 9:27 AM FINANCIAL ANALYST INTERN [facility] RBC Count 5.04 3.80 - 5.20 10e6/uL 03/15/2025 9:27 AM FINANCIAL ANALYST INTERN [facility] Hemoglobin 14.4 11.7 - 15.7 g/dL 03/15/2025 9:27 AM FINANCIAL ANALYST INTERN [facility] Hematocrit 42.4 35.0 - 47.0 % 03/15/2025 9:27 AM FINANCIAL ANALYST INTERN [facility] MCV 84.1 78.0 - 100.0 fL 03/15/2025 9:27 AM FINANCIAL ANALYST INTERN [facility] MCH 28.6 26.5 - 33.0 pg 03/15/2025 9:27 AM FINANCIAL ANALYST INTERN [facility] MCHC 34.0 31.5 - 36.5 g/dL 03/15/2025 9:27 AM FINANCIAL ANALYST INTERN [facility] RDW 13.1 10.0 - 15.0 % 03/15/2025 9:27 AM FINANCIAL ANALYST INTERN LABORATORY Platelet Count 243 150 - 450 10e3/uL 03/15/2025 9:27 AM FINANCIAL ANALYST INTERN LABORATORY Blood BLOOD SPECIMEN / Unknown Venipuncture / Unknown 03/15/2025 9:11 AM FINANCIAL ANALYST INTERN 03/15/2025 9:11 AM FINANCIAL ANALYST INTERN us Zenobia Allen PA-C LAB - BLOOD ORDERABLES Final Re sult LABORATORY [facility] [address] [facility] (no room number, 1st floor of clinic) [place] [address] * Mammo Screen imp dig bilat (11/20/2010 1:29 PM CDT) Anatomical Region Laterality Modality Breast Bilateral Other 11/20/2010 1:29 PM CDT Impressions 11/20/2010 1:46 PM CDT SCREENING MAMMOGRAPHY, BILATERAL, DIGITAL, GONZALEZ w/CAD November 20, 2010. HISTORY/COMPARISON: 09/16/09, 10/22/08, 06/27/07, 02/26/06, 05/17/05 BREAST PARENCHYMAL PATTERN: Heterogeneously dense. FINDINGS: Bilateral breast implants partially obscure the breast parenchyma, reducing mammographic sensitivity. Otherwise unremarkable. IMPRESSION: BI-RADS 2, BENIGN FINDINGS. us Stevie Zarco MD IMG MAMMOGRAPHY ORDERABLE S Edited from Last 3 Months or Most Recently Relevant to Health Maintenance [place] [facility] * Guarantor: Roula Carter Account Type Relation to Patient Date of Phone Billing Address Medication Therapy Self [address] [place] [address] [facility] Care Teams Dry Roller Relationship Specialty Start Date End Date Stevie Zarco MD PCP - General Family Practice 02/20/12 Zenobia Allen PA-C [address] [facility] [address] [place] [address] Assigned Surgical Provider 05/23/23 Vicky Painting [facility] [address] [place] [address] Pharmacist Pharmacist 09/11/24 Vicky Painting [facility] [address] [place] [address] [phone] Assigned [place] Pharmacist 09/18/24
--- OUTSIDE RECORDS SUMMARY | 2025-03-20 12:30 | XMS_ITS | Encounter Summary ---
Author Organization [facility] Address [address] [place] [address] Care Team Providers Care Organizational Development Manager Name Role Phone Stevie Zarco MD Primary Care Provider [phone] Zenobia Allen PA-C Unavailable [phone] Vicky Painting [facility] Unavailable [phone] Vicky Painting [facility] Unavailable [phone] Encounter Details Date Type Department Care Team (Late Contact Info) Description 02/04/2023 [facility] Nutrition Services [address] [place] [address] [facility] Social History Tobacco Use Types Packs/Day Years [...] on file Legal Sex Female 4:12 AM RESOURCE RECOVERY SPECIALIST Gender Identity Not on file Sexual Orientation Not on file COVID-19 Exposure Response Date Recorded In the last 10 days, have yo u been in contact with someone who was confirmed or suspected to have Coronavirus/COVID-19? No / Unsure 01/17/2023 1:55 PM CDT documented as of this encounter Plan of Treatment Upcoming Encounters Date Type Department Care Team (Late Contact Info) Description 03/29/2025 9:00 AM RESOURCE RECOVERY SPECIALIST Virtual Visit [facility] [place] [address] [facility] [address] [place] [phone] Lesli Castillo SURGICAL CONS WEIGHT LOSS [address] [place] [address] 04/26/2025 8:00 AM RESOURCE RECOVERY SPECIALIST Virtual Visit [facility] [place] [address] [facility] [address] [place] [phone] Zenobia Allen PA-C [address] [place] [id number] documented as of this encounter Visit Diagnoses Not on filedocumented in this encounter Care Teams Organizational Development Manager Relationship Specialty Start Date End Date Stevie Zarco MD PCP - General Family Practice 02/20/12 Zenobia Allen PA-C [address] [place] [id number] Assigned Surgical Provider 05/23/23 Vicky Painting [facility] [address] [place] [address] Pharmacist Pharmacist 09/11/24 Vicky Painting [facility] 9 [place] [address] Assigned MTM Pharmacist 09/18/24 documented as of this encounter
--- OUTSIDE RECORDS SUMMARY | 2025-03-20 12:30 | XMS_ITS | Encounter Summary ---
Author Organization [place] Address [address] [place] [address] Care Team Providers Care Head Nurse Name Role Phone Stevie Zarco MD Primary Care Provider [phone] Zenobia Allen PA-C Unavailable [phone] Vicky Painting [facility] Unavailable [phone] Vicky Painting [facility] Unavailable [phone] Encounter Details Date Type Department Care Team (Late Contact Info) Description 04/24/2023 MyC Medical Advice [facility] [address] [place] [address] Nela Meier, QUALITY MEASUREMENT SPECIALIST Social History Tobacco Use Types Packs/Day Years [...] on file Legal Sex Female 4:12 AM UNIVERSITY LECTURER Gender Identity Not on file Sexual Orientation Not on file documented as of this encounter Plan of Treatment Upcoming Encounters Date Type Department Care Team (Late Contact Info) Description 03/29/2025 9:00 AM UNIVERSITY LECTURER Virtual Visit [facility] [address] [place] [address] Lesli Castillo SURGICAL CONS WEIGHT LOSS [address] [place] [address] 04/26/2025 8:00 AM UNIVERSITY LECTURER Virtual Visit [facility] [place] [address] [facility] [address] [place] [phone] Zenobia Allen PA-C [address] [place] [address] documented as of this encounter Visit Diagnoses Not on filedocumented in this encounter Care Teams Head Nurse Relationship Specialty Start Date End Date Stevie Zarco MD PCP - General Family Practice 02/20/12 Zenobia Allen PA-C [address] [place] [address] Assigned Surgical Provider 05/23/23 Vicky Painting [facility] 9 [place] [address] Pharmacist Pharmacist 09/11/24 Vicky Painting [facility] 9 [place] [address] Assigned MTM Pharmacist 09/18/24 documented as of this encounter
--- OUTSIDE RECORDS SUMMARY | 2025-03-20 12:30 | XMS_ITS | Encounter Summary ---
Author Organization [facility] Address [address] [place] [address]. [place] [address] Care Team Providers Care Chemical Laboratory Scientist Name Role Phone Stevie Zarco MD Primary Care Provider [phone] Zenobia Allen PA-C Unavailable [phone] Vicky Painting [facility] Unavailable [phone] Vicky Painting [facility] Unavailable [phone] Encounter Details Date Type Department Care Team (Late st Contact Info) Description 12/26/2023 [facility] [place] [facility] [address] [place] [address] Elba Welch RN [facility] [address] [facility] [address] [place], [place] [id number] History of morbid obesity (Primary Dx); Bariatric surgery status; Borderline high cholesterol Social History Tobacco Use Types Packs/Day Years [...] on file Legal Sex Female 4:12 AM SACK SEWER Gender Identity Not on file Sexual Orientation Not on file documented as of this encounter Miscellaneous Notes * Telephone Encounter - Elba Welch RN - 01/02/2024 7:46 AM CDT Per BLAISE Fregoso PA-C: We can send the 1 mg Wegovy and include 4 refills. We will likely need to appeal to stay at this dose. Will send and and update pt. Noted EPA started. Elba Figueroa MS, RD, RN * Telephone Encounter - Elba Welch RN - 12/31/2023 4:49 PM CDT Pt would like to try the 1 mg dose to see if gets appetite back and stops losing wt. Ok to order and if so how many RFs? Seeing you next 01/20/24. Urban Figueroa MS, RD, RN * Telephone Encounter - Elba Welch RN - 12/27/2023 4:33 PM CDT Pt seeing you 01/20/24. Is feeling wt is too low. Is not hungry and not getting in 3 mls daily - a few bites. Is at 107# today - 04/1923 was 129. Is 4'10 and BMI of 22.36 Has 4 pens of the 1.7 left. Plz advise if should stop. Urban Figueroa MS, DOMINIC, RN documented in this encounter Plan of Treatment Upcoming Encounters Date Type Department Care Team (Late st Contact Info) Description 03/29/2025 9:00 AM SACK SEWER Virtual Visit [facility] [place] [address] [place] [address] [address] [place] [phone] Lesli Castillo SURGICAL CONS WEIGHT LOSS [address] [place] [address] [place] [address] 04/26/2025 8:00 AM SACK SEWER Virtual Visit [facility] [place] [address] [facility] [address] [place] [phone] Zenobia Allen PA-C [address] [place] [address] documented as of this encounter Visit Diagnoses Diagnosis History of morbid obesity- Primary Bariatric surgery status Borderline high cholesterol Unspecified disorder of lipoid metabolism documented in this encounter Care Teams Chemical Laboratory Scientist Relationship Specialty Start Date End Date Stevie Zarco MD PCP - General Family Practice 02/20/12 Zenobia Allen PA-C [address] [place] [address] Assigned Surgical Provider 05/23/23 Vicky Painting [facility] 9 [place] [address] Pharmacist Pharmacist 09/11/24 Vicky Painting [facility] 9 [place] [address] Assigned MTM Pharmacist 09/18/24 documented as of this encounter
--- OUTSIDE RECORDS SUMMARY | 2025-03-20 12:30 | XMS_ITS | Encounter Summary ---
Author Organization [facility] Address [address] [place] [address]. [place] [address] Care Team Providers Care Form Stripper Name Role Phone Stevie Zarco MD Primary Care Provider [phone] Zenobia Allen PA-C Unavailable [phone] Vicky Painting [facility] Unavailable [phone] Vicky Painting [facility] Unavailable [phone] Encounter Details Date Type Department Care Team (Late st Contact Info) Description 10/22/2023 MyC Medical Advice [facility] [address] [place] [address] Elba Welch, [facility] 6[address] [facility] [address] [place], [place] [address] Social History Tobacco Use Types Packs/Day Years [...] on file Legal Sex Female 4:12 AM POULTRY VACCINATOR Gender Identity Not on file Sexual Orientation Not on file documented as of this encounter Plan of Treatment Upcoming Encounters Date Type Department Care Team (Late Contact Info) Description 03/29/2025 9:00 AM POULTRY VACCINATOR Virtual Visit [facility] [place] [address] [place] [phone] Lesli Castillo SURGICAL CONS WEIGHT LOSS [address] [place] [address] 04/26/2025 8:00 AM POULTRY VACCINATOR Virtual Visit [facility] [place] [address] [facility] [address] [place] [phone] Zenobia Allen PA-C [address] [place] [id number] documented as of this encounter Visit Diagnoses Not on filedocumented in this encounter Care Teams Form Stripper Relationship Specialty Start Date End Date Stevie Zarco MD PCP - General Family Practice 02/20/12 Zenobia Allen PA-C [address] [place] [address] Assigned Surgical Provider 05/23/23 Vicky Painting [place] [address] [place], [place] [address] Pharmacist Pharmacist 09/11/24 Vicky Painting [facility] 9 [place] [address] Assigned MTM Pharmacist 09/18/24 documented as of this encounter
--- OUTSIDE RECORDS SUMMARY | 2025-03-20 12:30 | XMS_ITS | Encounter Summary ---
Author Organization [facility] Address [address] [place] [address]. [place] [address] Care Team Providers Care String Cutter Name Role Phone Stevie Zarco MD Primary Care Provider Zenobia Allen PA-C Unavailable [phone] Vicyk Painting [facility] Unavailable [phone] Vicky Painting [facility] Unavailable [phone] Encounter Details Date Type Department Care Team (Late st Contact Info) Description 02/04/2023 [facility] [place] [place] [facility] [address] [place] [address] [place] [address] Zenobia Allen PA-C [address] [facility] [address] [place] [id number] Social History Tobacco Use Types Packs/Day Years [...] on file Legal Sex Female 4:12 AM HOSPICE CONSULTANT Gender Identity Not on file Sexual Orientation [...] st Contact Info) Description 03/29/2025 9:00 AM HOSPICE CONSULTANT Virtual Visit [facility] [place] [address] [facility] [address] [place] [phone] Lesli Castillo SURGICAL CONS WEIGHT LOSS [address] [place] [address] 04/26/2025 8:00 AM HOSPICE CONSULTANT Virtual Visit [facility] [place] [address] [facility] [address] [place] [phone] Zenobia Allen PA-C [address] [place] [id number] documented as of this encounter Visit Diagnoses Not on filedocumented in this encounter Care Teams String Cutter Relationship Specialty Start Date End Date Stevie Zarco MD PCP - General Family Practice 02/20/12 Zenobia Allen PA-C [address] [place] [address] Assigned Surgical Provider 05/23/23 Vicky Painting [facility] [address] [place] [phone] Pharmacist Pharmacist 09/11/24 Vicky Painting [facility] [address] [place] [address] [phone] Assigned MTM Pharmacist 09/18/24 documented as of this encounter
--- OUTSIDE RECORDS SUMMARY | 2025-03-20 12:30 | XMS_ITS | Encounter Summary ---
Author Organization [place] Address [address] [place] [address] Care Team Providers Care Construction Crew Member Name Role Phone Stevie Zarco MD Primary Care Provider [phone] Zenobia Allen PA-C Unavailable [phone] Vicky Painting [facility] Unavailable [phone] Vicky Painting [facility] Unavailable [phone] Encounter Details Date Type Department Care Team (Late Contact Info) Description 04/25/2023 MyC Medical Advice Initial Department [address] [place] [phone] Gideon Moon Social History Tobacco Use Types Packs/Day Years [...] on file Legal Sex Female 4:12 AM RADIO TIME SALESPERSON Gender Identity Not on file Sexual Orientation Not on file documented as of this encounter Plan of Treatment Upcoming Encounters Date Type Department Care Team (Late Contact Info) Description 03/29/2025 9:00 AM RADIO TIME SALESPERSON Virtual Visit [facility] [place] [address] [facility] [address] [place] [phone] Lesli Castillo SURGICAL CONS WEIGHT LOSS [address] [facility] [place] [address] 04/26/2025 8:00 AM RADIO TIME SALESPERSON Virtual Visit [facility] [place] [address] [facility] [address] [place] [phone] Zenobia Allen PA-C [address] [place] [address] documented as of this encounter Visit Diagnoses Not on filedocumented in this encounter Care Teams Construction Crew Member Relationship Specialty Start Date End Date Stevie Zarco MD PCP - General Family Practice 02/20/12 Zenobia Allen PA-C [address] [place] [address] Assigned Surgical Provider 05/23/23 Vicky Painting [facility] [address] [place] [address] Pharmacist Pharmacist 09/11/24 Vicky Painting [facility] [address] [place] [address] Assigned MTM Pharmacist 09/18/24 documented as of this encounter
--- OUTSIDE RECORDS SUMMARY | 2025-03-20 12:30 | XMS_ITS | Encounter Summary ---
Author Organization [facility] Address [address] [place] [address] Care Team Providers Care Representative Phlebotomy Services Name Role Phone Stevie Zarco MD Primary Care Provider [phone] Zenobia Allen PA-C Unavailable [phone] Vicky Painting [facility] Unavailable [phone] Vicky Painting [facility] Unavailable [phone] Encounter Details Date Type Department Care Team (Late Contact Info) Description 01/10/2023 MyC Medical Advice [facility] Surgical Weight Loss Clinic [place] [address] [place] [phone] Nela Meier, HORTICULTURE SUPERINTENDENT Social History Tobacco Use Types Packs/Day Years Used Date Smoking Tobacco: Never Smokeless Tobacco: Never Alcohol Use Standard Drinks/Week Comments Yes 0 (1 standard drink = 0.6 oz pur e alcohol) occ wine PHQ-2 Answer Date Recorded PHQ-2 Score 0 05/07/2018 Comments No Sex and Gender Information Value Date Recorded Sex Assigned at Not on file Legal Sex Female 4:12 AM CHAIN PERSON Gender Identity Not on file Sexual Orientation Not on file documented as of this encounter Plan of Treatment Upcoming Encounters Date Type Department Care Team ([facility] Contact Info) Description 03/29/2025 9:00 AM CHAIN PERSON Virtual Visit [facility] Weight Loss [facility] [place] [address] [place] [phone] Lesli Castillo SURGICAL CONS WEIGHT LOSS [address] [place] [address] [place] [address] 04/26/2025 8:00 AM CHAIN PERSON Virtual Visit [facility] [place] [address] [facility] [address] [place] [phone] Zenobia Allen PA-C [address] [place] [address] documented as of this encounter Visit Diagnoses Not on filedocumented in this encounter Care Teams Representative Phlebotomy Services Relationship Specialty Start Date End Date Stevie Zarco MD PCP - General Family Practice 02/20/12 Zenobia Allen PA-C [address] [place] [address] Assigned Surgical Provider 05/23/23 Vicky Painting [facility] 9 [place] [address] Pharmacist Pharmacist 09/11/24 Vicky Painting [facility] [address] [place] [address] Assigned MTM Pharmacist 09/18/24 documented as of this encounter
--- OUTSIDE RECORDS SUMMARY | 2025-03-20 12:30 | XMS_ITS | Encounter Summary ---
Author Organization [place] Address [address] [place] [address]. [place] [address] Care Team Providers Care Cheese Cooker Name Role Phone Stevie Zarco MD Primary Care Provider [phone] Zenobia Allen PA-C Unavailable [phone] Vicky Painting [facility] Unavailable [phone] Vicky Painting [facility] Unavailable [phone] Reason for Visit * Reason Comments Medication Refill Encounter Details Date Type Department Care Team (Late st Contact Info) Description 05/27/2023 [facility] [address] [phone] Zenobia Allen PA-C [address] [facility] [address] [place] [address] Medication Refill Social History Tobacco Use Types Packs/Day Years [...] on file Legal Sex Female 4:12 AM FILER FINISH Gender Identity Not on file Sexual Orientation Not on file documented as of this encounter Miscellaneous Notes * Telephone Encounter - Sofia Alston RN - 05/29/2023 1:00 PM CST Sent pt MyC message re: bradley refill request. Sofia Santiago RN R FINISH * Telephone Encounter - Sofia Alston RN - 05/27/2023 10:27 AM CST Not able to reach [facility] via telephone. Will try again at later time. Sofia Santiago RN R FINISH documented in this encounter Plan of Treatment Upcoming Encounters Date Type Department Care Team (Late st Contact Info) Description 03/29/2025 9:00 AM FILER FINISH Virtual Visit [facility] [place] 9[address] [address] [phone] Lesli Castillo SURGICAL CONS WEIGHT LOSS [address] [place], [place] [address] 04/26/2025 8:00 AM FILER FINISH Virtual Visit [facility] [place] 6[address] [facility] [phone] Zenobia Allen PA-C [address], [place] 6607[address] documented as of this encounter Visit Diagnoses Diagnosis Overweight (BMI 25.0-29.9) Overweight Borderline high cholesterol Unspecified disorder of lipoid metabolism Gastroesophageal reflux disease without esophagitis Esophageal reflux documented in this encounter Care Teams Cheese Cooker Relationship Specialty Start Date End Date Stevie Zarco MD PCP - General Family Practice 02/20/12 Zenobia Allen PA-C [address] [place], [place] [address] Assigned Surgical Provider 05/23/23 Vicky Painting [facility] 9 [place] [address] Pharmacist Pharmacist 09/11/24 Vicky Painting [facility] 9 [place] [address] Assigned [place] Pharmacist 09/18/24 documented as of this encounter
--- OUTSIDE RECORDS SUMMARY | 2025-03-20 12:30 | XMS_ITS | Encounter Summary ---
Author Organization [place] Address [address] [place] [address]. [place] [address] Care Team Providers Care Seasonal Driver Name Role Phone Stevie Zarco MD Primary Care Provider [phone] Zenobia Allen PA-C Unavailable [phone] Vicky Painting [facility] Unavailable [phone] Vicky Painting [facility] Unavailable [phone] Encounter Details Date Type Department Care Team (Latest Contact Info) Description 03/15/2025 Results Follow-Up [facility] Surgical Weight Loss Clinic [address] [place] [address] [place] [address] Zenobia Allen PA-C [address] [facility] [address] [place], [place] [address] Dx: Postsurgical malabsorption (Primary Dx) Social History Tobacco Use Types Packs/Day Years [...] on file Legal Sex Female 4:12 AM SUPERVISOR PAINT ROLLER COVERS Gender Identity Not on file Sexual Orientation Not on file documented as of this encounter Plan of Treatment Upcoming Encounters Date Type Department Care Team (Late st Contact Info) Description 03/29/2025 9:00 AM SUPERVISOR PAINT ROLLER COVERS Virtual Visit [facility] Weight Loss [facility] [place] 6[address] [facility] [address] [place] [phone] Lesli Castillo SURGICAL CONS WEIGHT LOSS [address] [place] [address] 04/26/2025 8:00 AM SUPERVISOR PAINT ROLLER COVERS Virtual Visit [facility] [place] [address] [facility] [address] [place] [phone] Zenobia Allen PA-C [address] [address] Scheduled Orders Name Type Priority Associated Diagnoses Orde r Schedule Vitamin D Screen Lab Routine Postsurgical malabsorption Bariatric surgery status Expected: 04/15/2025 (Approximate), Expires: 03/16/2026 Parathyroid Hormone Intact Lab Routine Postsurgical malabsorption Bariatric surgery status Expected: 04/15/2025 (Approximate), Expires: 03/16/2026 documented as of this encounter Visit Diagnoses Diagnosis Postsurgical malabsorption- Primary Other and unspecified postsurgical nonabsorption Bariatric surgery status documented in this encounter Care Teams Seasonal Driver Relationship Specialty Start Date End Date Stevie Zarco MD PCP - General Family Practice 02/20/12 Zenobia Allen PA-C [address] [address] Assigned Surgical Provider 05/23/23 Vicky Painting [facility] [address] [place] [address] Pharmacist Pharmacist 09/11/24 Vicky Painting [facility] [address] [place] [address] Assigned MTM Pharmacist 09/18/24 documented as of this encounter
--- OUTSIDE RECORDS SUMMARY | 2025-03-20 12:30 | XMS_ITS | Encounter Summary ---
Author Organization [place] Address [address] [place] [address] Care Team Providers Care Feeder Switchboard Operator Name Role Phone Stevie Zarco MD Primary Care Provider [phone] Zenobia Allen PA-C Unavailable [phone] Vicky Painting [facility] Unavailable [phone] Vicky Painting [facility] Unavailable [phone] Encounter Details Date Type Department Care Team (Late st Contact Info) Description 02/04/2023 [facility] [address] [place] [address] Sofia Alston RN Social History Tobacco [...] on file Legal Sex Female 4:12 AM HARDNESS TESTER Gender Identity Not on file Sexual Orientation [...] st Contact Info) Description 03/29/2025 9:00 AM HARDNESS TESTER Virtual Visit M [facility] [place] [address] [facility] [address] [place] [phone] Lesli Castillo [facility]GICAL [facility] [address] [place] [address] 04/26/2025 8:00 AM HARDNESS TESTER Virtual Visit M [facility] [place] [address] [facility] [address] [place] [phone] Zenobia Allen PA-C [address] [place] [id number] documented as of this encounter Visit Diagnoses Not on filedocumented in this encounter Care Teams Feeder Switchboard Operator Relationship Specialty Start Date End Date Stevie Zarco MD PCP - General Family Practice 02/20/12 Zenobia Allen PA-C [address] [address] Assigned Surgical Provider 05/23/23 Vicky Painting [facility] [address] [place] [address] Pharmacist Pharmacist 09/11/24 Vicky Painting [facility] 9 [place] [address] Assigned MTM Pharmacist 09/18/24 documented as of this encounter
--- OUTSIDE RECORDS SUMMARY | 2025-03-20 12:30 | XMS_ITS | Encounter Summary ---
Author Organization [place] Address [address] [place] [address]. [place] [address] Care Team Providers Care Crude Tester Name Role Phone Stevie Zarco MD Primary Care Provider [phone] Zenobia Allen PA-C Unavailable [phone] Vicky Painting [facility] Unavailable [phone] Vicky Painting [facility] Unavailable [phone] Reason for Visit * Reason Onset Date Comments Refill Request 09/11/2023 Encounter Details Date Type Department Care Team (Late st Contact Info) Description 09/11/2023 Lillie Dias [facility] [address] [address] Zenobia Allen PA-C [address] [facility] [address] [place] [id number] Refill Request Social History Tobacco Use Types Packs/Day Years [...] on file Legal Sex Female 4:12 AM HOUSE PIPING INSPECTOR Gender Identity Not on file Sexual Orientation Not on file documented as of this encounter Plan of Treatment Upcoming Encounters Date Type Department Care Team (Late st Contact Info) Description 03/29/2025 9:00 AM HOUSE PIPING INSPECTOR Virtual Visit M [facility] [place] [address] [facility] [address] [place] [phone] Lesil Castillo SURGICAL CONS WEIGHT [facility] [address] [place] [address] 04/26/2025 8:00 AM HOUSE PIPING INSPECTOR Virtual Visit M [facility] [place] [address] [facility] [address] [place] [phone] Zenobia Allen PA-C [address] [place] [id number] documented as of this encounter Visit Diagnoses Diagnosis Overweight (BMI 25.0-29.9) Overweight Borderline high cholesterol Unspecified disorder of lipoid metabolism Gastroesophageal reflux disease without esophagitis Esophageal reflux documented in this encounter Care Teams Crude Tester Relationship Specialty Start Date End Date Stevie Zarco MD PCP - General Family Practice 02/20/12 Zenobia Allen PA-C [address] [place] [id number] Assigned Surgical Provider 05/23/23 Vicky Painting [facility] [address] [place] [address] Pharmacist Pharmacist 09/11/24 Vicky Painting [facility] [address] [place] [address] Assigned MTM Pharmacist 09/18/24 documented as of this encounter
--- OUTSIDE RECORDS SUMMARY | 2025-03-20 12:30 | XMS_ITS | Encounter Summary ---
Author Organization [place] Address [address] [place] [address]. [place] [address] Care Team Providers Care Cruise Staff Member Name Role Phone Stevie Zarco MD Primary Care Provider [phone] Zenobia Allen PA-C Unavailable [phone] Vicky Painting [facility] Unavailable [phone] Vicky Painting [facility] Unavailable [phone] Encounter Details Date Type Department Care Team (Late st Contact Info) Description 01/07/2024 MyC Medical Advice [facility] [address] [place] [address] Elba Welch, [facility] [address] [facility] [address] [place], [place] [id number] Social History Tobacco Use Types Packs/Day Years [...] on file 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 Gender Identity Not on file Sexual Orientation Not on file documented as of this encounter Plan of Treatment Upcoming Encounters Date Type Department Care Team (Late Contact Info) Description 03/29/2025 9:00 AM PILOT SUPERVISOR Virtual Visit M [facility] [place] [address] [place] [phone] Lesli Castillo SURGICAL CONS WEIGHT [facility] [address] [place] [address] 04/26/2025 8:00 AM PILOT SUPERVISOR Virtual Visit M [facility] [place] [address] [facility] [address] [place] [phone] Zenobia Allen PA-C [address] [place] [address] documented as of this encounter Visit Diagnoses Not on filedocumented in this encounter Care Teams Cruise Staff Member Relationship Specialty Start Date End Date Stevie Zarco MD PCP - General Family Practice 02/20/12 Zenobia Allen PA-C [address] [place] [address] Assigned Surgical Provider 05/23/23 Vicky Painting [place] [address] [place], [place] [address] Pharmacist Pharmacist 09/11/24 Vicky Painting [facility] 9 [place] [address] Assigned MTM Pharmacist 09/18/24 documented as of this encounter
--- OUTSIDE RECORDS SUMMARY | 2025-03-20 12:30 | XMS_ITS | Encounter Summary ---
Author Organization [place] Address [address] [place] [address] Care Team Providers Care Pest Control Specialist Name Role Phone Stevie Zarco MD Primary Care Provider [phone] Zenobia Allen PA-C Unavailable [phone] Vicky Painting [facility] Unavailable [phone] Vicky Painting [facility] Unavailable [phone] Encounter Details Date Type Department Care Team (Late Contact Info) Description 01/13/2024 MyC Medical Advice [facility] [address] [place] [address] Nela Meier, EQUIPMENT MONITOR PHOTOTYPESETTING Social History Tobacco Use Types Packs/Day Years [...] on file 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 Gender Identity Not on file Sexual Orientation Not on file documented as of this encounter Plan of Treatment Upcoming Encounters Date Type Department Care Team (Late Contact Info) Description 03/29/2025 9:00 AM NEON SIGN MECHANIC Virtual Visit [facility] [address] [place] [address] Lesli Castillo SURGICAL [facility] WE[facility] [address] [place] [address] 04/26/2025 8:00 AM NEON SIGN MECHANIC Virtual Visit [facility] [place] [address] [facility] [address] [place] [address] Zenobia Allen PA-C [address] [place] [address] documented as of this encounter Visit Diagnoses Not on filedocumented in this encounter Care Teams Pest Control Specialist Relationship Specialty Start Date End Date Stevie Zarco MD PCP - General Family Practice 02/20/12 Zenobia Allen PA-C [address] [place] [address] Assigned Surgical Provider 05/23/23 Vicky Painting [facility] 9 [place] [address] Pharmacist Pharmacist 09/11/24 Vicky Painting [facility] 9 [place] [address] Assigned MTM Pharmacist 09/18/24 documented as of this encounter
--- OUTSIDE RECORDS SUMMARY | 2025-03-20 12:30 | XMS_ITS | Encounter Summary ---
Author Organization [place] Address [address] [place] [place] [address] Care Team Providers Care Furnace Packer Name Role Phone Stevie Zarco MD Primary Care Provider [phone] Zenobia Allen PA-C Unavailable [phone] Vicky Painting [facility] Unavailable [phone] Vicky Painting [facility] Unavailable [phone] Encounter Details Date Type Department Care Team (Late Contact Info) Description 01/17/2024 MyC Medical Advice [facility] [address] [place] [address] Nela Meier, ACCESS CLINICIAN Social History Tobacco Use Types Packs/Day Years [...] on file 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 Gender Identity Not on file Sexual Orientation Not on file documented as of this encounter Plan of Treatment Upcoming Encounters Date Type Department Care Team (Late Contact Info) Description 03/29/2025 9:00 AM SALES ORDER PROCESSOR Virtual Visit [facility] [address] [place] [address] Lesli Castillo SURGICAL CONS WEIGHT LOSS [address] [place] [address] 04/26/2025 8:00 AM SALES ORDER PROCESSOR Virtual Visit [facility] [place] [address] [facility] [address] [place] [phone] Zenobia Allen PA-C [address] [place] [address] documented as of this encounter Visit Diagnoses Not on filedocumented in this encounter Care Teams Furnace Packer Relationship Specialty Start Date End Date Stevie Zarco MD PCP - General Family Practice 02/20/12 Zenobia Allen PA-C [address] [place] [address] Assigned Surgical Provider 05/23/23 Vicky Painting [facility] 9 [place] [address] Pharmacist Pharmacist 09/11/24 Vicky Painting [facility] 9 [place] [address] Assigned MTM Pharmacist 09/18/24 documented as of this encounter
--- OUTSIDE RECORDS SUMMARY | 2025-03-20 12:30 | XMS_ITS | Encounter Summary ---
Author Organization [place] Address [address] [place] [address]. [place] [address] Care Team Providers Care Civil Engineer Name Role Phone Stevie Zarco MD Primary Care Provider Zenobia Allen PA-C Unavailable [phone] Vicky Painting [facility] Unavailable [phone] Vicky Painting [facility] Unavailable [phone] Encounter Details Date Type Department Care Team (Late st Contact Info) Description 02/05/2023 [facility] [address] [place] [address] [place] [address] Zenobia Allen PA-C [address] [facility] [address] [place] [id number] Social History Tobacco Use Types Packs/Day Years [...] on file 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 Gender Identity Not on file Sexual Orientation [...] st Contact Info) Description 03/29/2025 9:00 AM MILK RECEIVER Virtual Visit M [facility] [place] [address] [facility] [address] [place] [phone] Lesli Castillo SURGICAL CONS WEIGHT LOSS [address] [place] [address] 04/26/2025 8:00 AM MILK RECEIVER Virtual Visit M [facility] [place] [address] [facility] [address] [place] [phone] Zenobia Allen PA-C [address] [place] [address] documented as of this encounter Visit Diagnoses Not on filedocumented in this encounter Care Teams Civil Engineer Relationship Specialty Start Date End Date Stevie Zarco MD PCP - General Family Practice 02/20/12 Zenobia Allen PA-C [address] [place] [address] Assigned Surgical Provider 05/23/23 Vicky Painting [facility] [address] [place] [address] Pharmacist Pharmacist 09/11/24 Vicky Painting [facility] [address] [place] [address] [id number] Assigned MTM Pharmacist 09/18/24 documented as of this encounter
--- OUTSIDE RECORDS SUMMARY | 2025-03-20 12:30 | XMS_ITS | Encounter Summary ---
Author Organization [place] Address [address] [place] [address]. 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 ACQUISITION SPECIALIST Gender Identity Not on file Sexual Orientation Not on file documented as of this encounter Plan of Treatment Upcoming Encounters Date Type Department Care Team (Late st Contact Info) Description 03/29/2025 9:00 AM TALENT ACQUISITION SPECIALIST Virtual Visit [facility] [place] [address] [facility] [address] [place] [phone] Lesli Castillo SURGICAL CONS WEIGHT LOSS [address] [facility] [place] [address] 04/26/2025 8:00 AM TALENT ACQUISITION SPECIALIST Virtual Visit [facility] [place] [address] [facility] [address] [place] [phone] Zenobia Allen PA-C [address] [facility] [address] [place] [address] documented as of this encounter Visit Diagnoses Not on filedocumented in this encounter Care Teams Nutrition Services Worker Relationship Specialty Start Date End Date Stevie Zarco MD PCP - General Family Practice 02/20/12 Zenobia Allen PA-C [address] [facility] [address] [place] [address] Assigned Surgical Provider 05/23/23 Vicky Painting [facility] 9 [place] [address] Pharmacist Pharmacist 09/11/24 Vicky Painting [facility] 9 [place] [address] Assigned MTM Pharmacist 09/18/24 documented as of this encounter
--- OUTSIDE RECORDS SUMMARY | 2025-03-20 12:30 | XMS_ITS | Clinical Summary ---
Author Organization [facility] Address [address] [place] [id number] Care Team Providers Care Mannequin Sander And Finisher Name Role Phone Stevie Zarco MD Primary Care Provider [facility] Radiology/[place] Unavailable U navailable Allergies Active Allergy Reactions Criticality Noted Date Comments Amoxicillin Rash 09/21/2009 Erythromycin Rash 09/21/2009 Penicillins Rash 09/21/2009 Medications omeprazole (PRILOSEC) 20 mg Delayed-Release capsuleIndicatio ns:Gastroesophag eal reflux disease with esophagitis without hemorrhage Take 1 Capsule (20 mg) by mouth once daily before a meal. 90 Capsule 3 4 Active phentermine (ADIPEX-P) 37.5 mg tabletIndication s:Obesity, Class II, BMI 35-39.9 TAKE 1 TABLET(37.5 MG) BY MOUTH DAILY BEFORE A MEAL 90 Tablet 1 5 Active predniSONE (DELTASONE) 20 mg tabletIndication s:Headache syndrome,Acute left-sided low back pain without sciatica Take 3 tablets by mouth for 3 days then 2 tablets by mouth for 3 days then 1 tablet by mouth for 3 days then 1/2 tablet by mouth for 3 days. Take with food. 20 Tablet 5 Active methocarbamoL 750 mg tabletIndication s:Acute left-sided low back pain without sciatica Take 1 Tablet (750 mg) by mouth every 6 hours if needed for Muscle Spasm. 20 Tablet 5 Active cyanocobalamin, vitamin B-12, (VITAMIN B-12 ORAL) Take 1 Tablet by mouth once every other day. 03/16/20 25 Discontinu ed(*Patien t states no longer taking) PreviDent 5000 Dry Mouth 1.1 % pste 4 03/16/20 25 Discontinu ed(*Patien t states no longer taking) VITAMIN A ORAL Take by mouth. 03/16/20 25 Discontinu ed(*Patien t states no longer taking) ipratropium 42 mcg (0.06 %) nasal sprayIndications :Rhinorrhea Inhale 2 Sprays in both nostrils three times daily. 15 mL 2 5 03/16/20 25 Discontinu ed(*Patien t states no longer taking) Active Problems Problem Noted Date Diagnosed Date Primary osteoarthritis of right hand 08/28/2024 Gallstones 04/14/2024 Renal cyst, right 04/14/2024 Uncomplicated alcohol dependence 03/30/2024 Chronic left shoulder pain and stiffness 023 Pap smear for cervical cancer screening 11/28/19 23 Overview (01/07/2023): 11/2022 NIL/HPV negative Plan: Pap/HPV due in 5 years S/P left shoulder arthroscop ic rotator cuff repair, extensive debridement, distal clavicle excision, mini open biceps transplantation, DOS: 11/04/[address] Ding 03/13/2021 B12 deficiency 01/22/2017 TMJ (dislocation of temporomandibular joint) Colon polyps 01/31/2015 Dyspareunia, female 10/02/2011 Family history of breast cancer 11/14/2010 Knee pain, left 11/14/2010 Osteopenia 07/25/2010 vitamin D deficiency 07/12/2010 Obese 09/21/2009 GERD (gastroesophageal reflux disease) 0 hyperlipidemia 09/21/2009 Hard of hearing, s/p bilat. otoschlerosis surg., right ear deaf 09/21/2009 Sickle cell trait 09/21/2009 Unspecified constipation 09/21/2009 Overview (09/21/2009): Chronic Routine health maintenance 09/21/2009 Overview (03/03/2024): Last cpx-05/08 as pre-op Last pap smear-01/04 Last breast exam-11/04 Last mammogram 03/22 Last lipid-11/04,LDL-145 hysterectomy Colonoscopy, 06/19, adenoma found, recheck 5 years. Resolved Problems Problem Noted Date Diagnosed Date Resolved Date Routine health maintenance 08/26/2012 0 11/04/2015 Dysphagia, with swallowing meat, 201208/26/2012 10/24/2021 Encounters Date Type Department Care Team Description 03/18/2025 8:05 AM SISTER SUPERIOR E-Visit [facility] [place] [id number] [place] [address] Hazel Kirkpatrick PA eVisit for Headache 03/16/2025 9:35 AM SISTER SUPERIOR Office Visit [facility] [place] [id number] [place] [address] Hazel Kirkpatrick PA Back Pain (/CHILLS, HEADACHE, BACK PAIN ON LEFT SIDE X 5 DAYS- DECLINED TRIAGE-///) 03/16/2025 Travel from Last 3 Months Immunizations Immunization Administration Dates Next Due AMB Influenza, IIV4 PF (=>6 mos Flulaval,Fluzone Fluarix)(Flu Clinic Only) 01/13/2020 COVID-19 vaccine ([employer] NTRockpack 30mcg/0.3mL) PF, MDV 08/20/2020,07/30/2020 Hep B (Hepatitis B (Adult) Recombinant Adjuvanted) 09/13/2022,06/27/2022 Influenza Virus, Unspecified 01/27/2017 Influenza, IIV3 (Age 6-35 mos) 04/01/2009 Influenza, IIV3 (Age >=3 years) 01/30/20 24,01/31/2015,03/27/2007,2005 Influenza, IIV4 01/22/2023,03/20/2022,02/06/2016 Influenza, Injectable, Mdck, Quadrivalent, W/preservative 02/09/2021 Td (Age >=7 Years) 07/30/2003 Tdap 03/30/2024,09/24/2013 Zoster (Shingrix-RZV, recombinant) 02/17/2020, Family History Medical History Relation Name Comments Cancer Sister 1 Diabetes Sister 2 Relation Name Status Comments Sister 1 Sister 2 Social History Tobacco Use Types Packs/Day Years Used Date Smoking Tobacco: Never Passive Smoke Exposure: Never Smokeless Tobacco: Never Tobacco Cessation:Counseling Given: Not Answered Alcohol Use Standard Drinks/Week Comments Yes 5.8 (1 standard drink = 0.6 oz p ure alcohol) A drink every night. PHQ-2 Answer Date Recorded PHQ-2 TOTAL SCORE 2 03/30/2024 Social Connections Answer Date Recorded Do you often feel lonely or isolated from those around you? 0 03/30/2024 Alcohol Use Answer Date Recorded How often do you have a drink containing alcohol ? 0 03/16/2025 Average Number of Drinks Not on file 025 Frequency of Binge Drinking Not on file 02/27 Financial Resource Strain Answer Date R ecorded Difficulty of Paying Living Expenses 3 03/30/2024 Difficulty of Paying Living Expenses Not on file 03/30/2024 Food Insecurity Answer Date Recorded Do you worry your food will run out before you are able to buy more? 1 03/30/2024 Transportation Needs Answer Date Record ed Does lack of transportation keep you from medica l appointments? 1 03/30/2024 Does lack of transportation keep you from work, meetings or getting things that you need? 1 03/30/2024 Housing Stability Answer Date Recorded What is your housing situation today? 1 03/30/2024 Utilities Answer Date Recorded Do you have trouble paying f or utilities (for example, heat, electricity, water, phone)? 1 03/30/2024 Comments No Sex and Gender Information Value Date Recorded Sex Assigned at Not on file Legal Sex Female 6:35 AM SISTER SUPERIOR Gender Identity Not on file Sexual Orientation Not on file Occupation Industry Job Start Date Job End Date Not on file Not on file Not on file Not on file Obstetrics History Para Term AB IAB SAB Ectopic Multiple Livin g Live Births 3 3 Date Outcome GA Total Labor Labor/2nd/3rd Weight Sex Type Anes PTL Leny A1 A5 Name Clin Last Filed Vital Signs Vital Sign Reading Time Taken Comments Blood Pressure 130/78 03/16/2025 9:36 AM SISTER SUPERIOR Pulse 74 03/16/2025 9:36 AM SISTER SUPERIOR Temperature 36.8 C (98.2 F) 03/16/2025 9:36 AM SISTER SUPERIOR Respiratory Rate 16 07/09/2020 2:36 PM SISTER SUPERIOR Oxygen Saturation 98% 03/16/2025 9:36 AM SISTER SUPERIOR Inhaled Oxygen Concentration - - Weight 48.6 kg (107 lb 3.2 oz) 03/16/2025 9:36 A M SISTER SUPERIOR Height 147.3 cm (4' 10) 03/16/2025 9:36 AM SISTER SUPERIOR Body Mass Index 22.4 03/16/2025 9:36 AM SISTER SUPERIOR Plan of Treatment Upcoming Encounters Date Type Department Care Team (Late st Contact Info) Description 04/09/2025 10:40 AM SISTER SUPERIOR Office Visit [facility] [place] [address] [place], [place] [phone] [place] [address] [place] [address] Health Maintenance Due Date Last Done Comments Hepatitis C screening for ag e 18-79 1981 Pneumococcal series for age 50+ (1 of 2 - PCV) 1982 Influenza Vaccine (#1) 2024 4, 01/22/2023, 03/20/2022, Additional history exists Mammogram for age 45-75 03/02/2025 03/02/20 24, 01/04/2023, 11/09/2021, Additional history exists Depression screening for age 12+ 03/30/2025 03/30/2024, 03/20/2022, 12/29/2019, Additional history exists BMI (ht and wt on same day) for age 18+ 03/16/2026 03/16/2025, 03/30/2024, 10/02/2023, Additional history exists Pap test for age 21-65 12/19/2027 3, 12/18/2022, 12/29/2019, Additional history exists Lipids for age 45-75 03/30/2029 03/30/2024, 12/18/2022, 10/24/2021, Additional history exists Colonoscopy through age 75 06/02/2030 06/02/2020, Tetanus booster 03/30/2034 03/30/2024, 08/28, 07/30/2003 RSV vaccine for adults or (1 - 1-dose 75+ series) 2038 HIV for age 15-65 Completed 06/01/2019 Zoster (shingles) series for age 50+ Completed 02/17/2020, 11/17/2019 Hepatitis B series for 19+ Completed 09/13/2022, Procedures Procedure Name Priority Date/Time Associated Diagnosis Comments URINE CULTURE Routine 03/16/2025 10:00 AM SISTER SUPERIOR Left flank pain Chills without fever URINE CULTURE INDICATED ([facility] REFLEX ONLY) Routine 03/16/2025 10:00 AM SISTER SUPERIOR Left flank pain Chills without fever UA DIP W/REFLEX TO CULTURE (QUEST) Routine 03/16/2025 10:00 AM SISTER SUPERIOR Left flank pain Chills without fever LIPID PANEL Routine 03/30/2024 9:39 AM SISTER SUPERIOR Mixed hyperlipidemia XR MAMMO NOEMI BILAT SCREEN IMPLANT Routine 03/02/2024 3:11 PM SISTER SUPERIOR Screening breast examination DIRECTOR OF RESTAURANTS THIN PREP PAP SCREEN IMAGED Routine 12/18/2022 4:30 PM CDT Cervical cancer screening SCAN-COLONOSCOPY 06/02/2020 8:00 AM SISTER SUPERIOR ANTI HIV 1/2 Routine 06/01/2019 7:55 AM SISTER SUPERIOR Chronic parotitis from Last 3 Months or Most Recently Relevant to Health Maintenance Results * (ABNORMAL) UA Dip w/ reflex* to UC [[id number]] (03/16/2025 10:00 AM SISTER SUPERIOR) COLOR YELLOW YELLOW 03/16/2025 10:13 AM SISTER SUPERIOR [facility] APPEARANCE CLEAR CLEAR 03/16/2025 10:13 AM SISTER SUPERIOR [facility] SPECIFIC GRAVITY 1.020 1.001 - 1.035 03/16/2025 10:13 AM SISTER SUPERIOR [facility] PH 6.0 5.0 - 8.0 03/16/2025 10:13 AM SISTER SUPERIOR [facility] GLUCOSE NEGATIVE NEGATIVE 03/16/2025 10:13 AM SISTER SUPERIOR [facility] BILIRUBIN NEGATIVE NEGATIVE 03/16/2025 10:13 AM SISTER SUPERIOR [facility] KETONES 1+(A) NEGATIVE 03/16/2025 10:13 AM SISTER SUPERIOR [facility] OCCULT BLOOD NEGATIVE NEGATIVE 03/16/2025 10:13 AM SISTER SUPERIOR [facility] PROTEIN NEGATIVE NEGATIVE 03/16/2025 10:13 AM SISTER SUPERIOR [facility] NITRITE NEGATIVE NEGATIVE 03/16/2025 10:13 AM SISTER SUPERIOR [facility] LEUKOCYTE ESTERASE TRACE(A) NEGATIVE 03/16/2025 10:13 AM SISTER SUPERIOR [facility] Urine URINE SPECIMEN / Unknown Non-Blood / Unknown 03/16/2025 10:00 AM SISTER SUPERIOR 03/16/2025 10:00 AM SISTER SUPERIOR us Hazel BERMAN URINE Final Result [facility] [address] [id number], [place] [phone] [address] * URINE CULTURE INDICATED ([facility] REFLEX ONLY) (03/16/2025 10:00 AM SISTER SUPERIOR) URINE CULTURE INDICATED SEE NOTE 03/16/2025 10:13 AM SISTER SUPERIOR [facility] Comment:CULTURE INDICATED - RESULTS TO FOLLOW Urine URINE SPECIMEN / Unknown Non-Blood / Unknown 03/16/2025 10:00 AM SISTER SUPERIOR 03/16/2025 10:00 AM SISTER SUPERIOR us Hazel BERMAN URINE Final Result [facility] [address] [place] [id number], [place] [phone] * URINE CULTURE (03/16/2025 10:00 AM SISTER SUPERIOR) CULTURE, URINE, ROUTINE SEE NOTE 03/18/2025 3:20 AM SISTER SUPERIOR [facility] Comment: CULTURE, URINE, ROUTINE Micro Number: [id number] Test Status: Final Specimen Source: Urine Specimen Quality: Adequate Result: Mixed genital varinder isolated. These superficial bacteria are not indicative of a urinary tract infection. No further organism identification is warranted on this specimen. If clinically indicated, recollect clean-catch, mid-stream urine and transfer immediately to Urine Culture Transport Tube. Urine URINE SPECIMEN / Unknown Non-Blood / Unknown 03/16/2025 10:00 AM SISTER SUPERIOR 03/16/2025 10:00 AM SISTER SUPERIOR Hazel BERMAN MICROBIOLOGY Final Result [facility] [place] [address] [place] [address], * (ABNORMAL) LIPID PANEL (03/30/2024 9:39 AM SISTER SUPERIOR) Pathologist [facility] CHOLESTEROL, TOTAL 270(H) <200 mg/dL [facility] HDL CHOLESTEROL 123 > OR = 50 mg/dL [facility] TRIGLYCERIDES 80 <150 mg/dL [facility] Rodriguez LDL-CHOLESTEROL 130(H) mg/dL (calc) [facility]o Rodriguez Comment: Reference range: <100 Desirable range <100 mg/dL for primary prevention; <70 mg/dL for patients with CHD or diabetic patients with > or = 2 CHD risk factors. LDL-C is now calculated using the Willy-Joann calculation, which is a validated novel method providing better accuracy than the Friedewald equation in the estimation of LDL-C. Willy SS et al. HOMERO. 2013;310(19): 7968-1290 (http://education.Dragonfly/faq/OND467) CHOL/HDLC RATIO 2.2 <5.0 (calc) [facility] o[facility] Michael NON HDL CHOLESTEROL 147(H) <130 mg/dL (calc) [facility]rita Rodriguez Comment: For patients with diabetes plus 1 major ASCVD risk factor, treating to a non-HDL-C goal of <100 mg/dL (LDL-C of <70 mg/dL) is considered a therapeutic option. Blood BLOOD SPECIMEN / Unknown 03/30/2024 9:39 AM SISTER SUPERIOR 03/30/2024 9:41 AM SISTER SUPERIOR Narrative [facility] - 03/31/2024 4:52 AM SISTER SUPERIOR FASTING:YES FASTING: YES Stevie Zarco MD CHEMISTRY Final Result [facility] [address] [place] [address], [facility] [address] [place] [address] * XR MAMMO NOEMI BILAT SCREEN IMPLANT (03/02/2024 3:11 PM SISTER SUPERIOR) Anatomical Region Laterality Modality BREASTS, Breast Left, Breast Right Bilateral Mammography 03/02/2024 3:11 PM SISTER SUPERIOR Impressions 03/03/2024 8:38 AM SISTER SUPERIOR IMPRESSION: ACR BI-RADS 2: Benign Findings Recommended follow-up: Annual Mammography beginning at age 40 or as discussed with your provider. When performed, computer-aided detection was used in the interpretation of this study. A lay language report of this examination will be mailed to the patient. LIFETIME BREAST CANCER RISK ASSESSMENT SCORE: Lifetime risk of developing breast cancer is 16.7% calculated using the Radha Model and information provided by the patient at the time of screening. The average lifetime risk for developing breast cancer is 12.9% for women born in the . For patients with a lifetime breast cancer risk assessment score of less than 20%, annual screening mammography is recommended. For patients with a lifetime risk of greater than 20%, annual screening mammography supplemented with annual Breast MRI is recommended. Patients in this category are encouraged to discuss this recommendation with their healthcare provider to determine if Breast MRI is appropriate and if so, to obtain a referral and confirm coverage with their health insurance. Recommendations are based on the [employer] Appropriateness Criteria. Patients with a BI-RADS category of 0 should follow the recommendations for further evaluation before considering supplemental screening. Narrative 03/03/2024 8:38 AM SISTER SUPERIOR EXAM: MAMMOGRAM IMPLANTS NOEMI SCREENING BILATERAL LOCATION: [facility] DATE: 03/02/2024 INDICATION: Asymptomatic. Screening Mammogram. COMPARISON: 01/04/23, 11/09/21 BREAST DENSITY: The breasts are heterogeneously dense, which may obscure small masses. FINDINGS: Tomosynthesis craniocaudal and mediolateral oblique views, and push back Miki views were obtained. No concerning mammographic findings. The implants are unremarkable. Procedure Note Jd Cancino MD - 03/03/2024 EXAM: MAMMOGRAM IMPLANTS NOEMI SCREENING BILATERAL LOCATION: [facility] DATE: 03/02/2024 INDICATION: Asymptomatic. Screening Mammogram. COMPARISON: 01/04/23, 11/09/21 BREAST DENSITY: The breasts are heterogeneously dense, which may obscure small masses. FINDINGS: Tomosynthesis craniocaudal and mediolateral oblique views, and push back Miki views were obtained. No concerning mammographic findings. The implants are unremarkable. IMPRESSION: IMPRESSION: ACR BI-RADS 2: Benign Findings Recommended follow-up: Annual Mammography beginning at age 40 or as discussed with your provider. When performed, computer-aided detection was used in the interpretation of this study. A lay language report of this examination will be mailed to the patient. LIFETIME BREAST CANCER RISK ASSESSMENT SCORE: Lifetime risk of developing breast cancer is 16.7% calculated using the Radha Model and information provided by the patient at the time of screening. The average lifetime risk for developing breast cancer is 12.9% for women born in the . For patients with a lifetime breast cancer risk assessment score of less than 20%, annual screening mammography is recommended. For patients with a lifetime risk of greater than 20%, annual screening mammography supplemented with annual Breast MRI is recommended. Patients in this category are encouraged to discuss this recommendation with their healthcare provider to determine if Breast MRI is appropriate and if so, to obtain a referral and confirm coverage with their health insurance. Recommendations are based on the [employer] Appropriateness Criteria. Patients with a BI-RADS category of 0 should follow the recommendations for further evaluation before considering supplemental screening. Stevie Zarco MD MAMMO Final Result * DIRECTOR [employer]UR[employer] THIN PREP PAP SCREEN IMAGED (12/18/2022 4:30 PM CDT) Case Report Gynecologic Cytology Report Case: [id number] Authorizing Provider: Stevie Zarco, Collected: 12/18/2022 Adalgisa GALVEZ Ordering Location: [facility] Received: 12/18/2022 1655 [facility] First Screen: Nadya Murillo Specimen: DIRECTOR OF RESTAURANTS ThinPrep Vial Screening, Cervical 12/23/2022 11:45 AM CDT [facility] INTERPRETATION/ RESULT NEGATIVE FOR INTRAEPITHELIAL LESION OR MALIGNANCY (NIL) (none) 12/23/2022 11:45 AM CDT [facility] ENTRAL [facility] at 1145 CDT SPECIMEN ADEQUACY Satisfactory for evaluation No endocervical component seen 12/23/2022 11:45 AM CDT [facility] EN[facility] HPV REQUEST HPV and PAP 12/23/2022 11:45 AM CDT [facility] Date of LMP 200712/23/2022 11:45 AM CDT [facility] Last Pap Date 201912/23/2022 11:45 AM CDT [facility] Last Pap Result NIL 11:45 AM CDT [facility] Abnormal Pap or Price Bx in last 5 years No 12/23/2022 11:45 AM CDT [facility] Menstrual Status Postmenopausal 12/23/2022 11:45 AM CDT [facility] Price Bx Done Today No 12/23/2022 11:45 AM CDT [facility] ENTRAL LABORAT[facility] Additional Information None given 12/23/2022 11:45 AM CDT [facility] Comment: Cytology is screened at [facility] Central Laboratory - [address], [place] [address] and [facility] - [address], [place] [address] and [facility] - [address] [place] [address] Interpreted at [facility], Central Laboratory - [address], [place] [address] Automated Review Successful 12/23/2022 11:45 AM CDT [facility]-C ENTRAL LABORATORY Comment:Specimen processed s uccessfully by automated production metal sprayer device, ThinPrep Imaging System, [employer] ANCILLARY TESTING DIRECTOR OF RESTAURANTS HPV Ordered, Please see separate report 12/23/2022 11:45 AM CDT [facility] ENTRAL LABORATORY Note The pap test is a screening technique, not a diagnostic procedure. It is used primarily to screen for squamous cancers and precursor lesions. Published studies have shown that it is subject to both false negative and false positive results. The pap test should not be used as the sole means to diagnose or exclude pre-malignant and malignant lesions. 12/23/2022 11:45 AM CDT [facility]- ENTRAL LABORATORY Other (Cervical) Non-Blood / Unknown 12/18/2022 4:30 PM CDT 12/18/2022 4:55 PM CDT us Stevie Zarco MD PATHOLOGY/CYTOLOGY Fin al Result [facility] [address] [place] [address], [place] * SCAN-COLONOSCOPY (06/02/2020 8:00 AM SISTER SUPERIOR) Narrative Procedure Note Kimberly Salinas MD - 06/02/2020 7:50 AM CST [facility] [address], [address], [place] [address] Patient Name: Roula Carter Gender: Female Exam Date: 06/02/2020 Visit Number: [id number] Age: 54 Years Date of : 1965 Attending MD: Kimberly Salinas MD Medical Record#: [id number] Procedure: Colonoscopy Indications: Previous adenomatous polyp(s) Referring MD: Stevie Zarco MD Primary MD: Stevie Zarco MD Medications: Admitting Medications: 0.9% Normal Saline at TKO Intra Procedure Medications: Patient received monitored anesthesia care. Complications: No immediate complications Procedure: An examination of the heart and lungs was performed and found to be withinacceptable limits. . The patient was therefore deemed a reasonablecandidate for endoscopy and sedation. The risks and benefits of the procedure were explained to the patient.After obtaining informed consent, the patient received monitoredanesthesia care and I passed the scope without difficulty via the rectum to the cecum. The appendiceal orificeand ic valve were identified. The scope was retroflexed during theexamination The quality of the prep was good (Miralax/Gatorade/2 tabletsBisacodyl/Magnesium Citrate). This was a complete examination throughout the entire colon. Findings: Polyp location: ascending colon. Quantity: 1. Size: 3 mm. Polyp shape:sessile. Maneuver: polypectomy was performed with a cold snare. Removal: complete. Retrieval: complete. Bleeding: none. Polyp location: splenic flexure. Quantity: 2. Size: 6 mm. Polyp shape:sessile. Maneuver: polypectomy was performed with a cold snare . Removal: complete. Retrieval: complete. Bleeding: none. Remainder of the exam is normal. Impression: Colorectal polyps Personal history of colonic polyps Preliminary Plan: The patient and their physician will receive a copy of the pathologyreport as well as pathology-based recommendations for future screening orsurveillance. Pathology Results: A: COLON, ASCENDING, POLYP: 1. Tubular adenoma 2. Negative for high grade dysplasia 3. Per the colonoscopy report: a. Polyp size: 3 mm b. Resection: Complete c. Retrieval: Complete B: COLON, SPLENIC FLEXURE, POLYPS: 1. Tubular adenoma (1) and normal colonic mucosa with a lymphoidaggregate (clinically, 2 polyps) 2. Negative for high grade dysplasia 3. Per the colonoscopy report: a. Polyp sizes: 6 mm b. Resection: Complete c. Retrieval: Complete MICROSCOPIC A: Performed B: Performed SPECIAL STAINING/DEEPER B: Deeper Electronically signed by: Col[place] [address] Orders Instruction(s)/Education: Instruction/Education Timeframe Assessment Colon Cancer Prevention K63.5 Colon Polyps K63.5 Final Plan: Return for a colonoscopy in 7 years. We will attempt to contact you at appropriate intervals via U.S. mail. Wemay not be able to find you or contact you at that time, therefore youshould know that the responsibility for following our recommendation restswith you. If you don't hear from us at the time your procedure is due,please contact our office to schedule an appointment. If your contactinformation should change, please contact our office so that we can updateyour record. _Electronically signed by: Kimberly Salinas MD 06/02/2020 cc: Stevie Zarco MD cc: Stevie Zarco MD us Kimberly Salinas MD OTHER Final Resu lt * ANTI HIV 1/2 (06/01/2019 7:55 AM SISTER SUPERIOR) HIV-1/HIV-2 ANTIBODY Non-Reacti ve Non-Reacti ve 06/01/2019 2:49 PM SISTER SUPERIOR [facility] Comment:HIV-1 p24 and HIV-1/ HIV-2 Ab not detected. Blood BLOOD SPECIMEN / Unknown Venipuncture / Unknown 06/01/2019 7:55 AM SISTER SUPERIOR 06/01/2019 7:56 AM SISTER SUPERIOR us Stevie Zarco MD SEND OUTS Final Result [facility] [address] [place] [address], [place] from Last 3 Months or Most Recently Relevant to Health Maintenance Insurance [facility] Care Teams Mannequin Sander And Finisher Relationship Specialty Start Date End Date Stevie Zarco MD PCP - General 08/12/09 Mri, [facility] Radiology/[place] [facility] - Diagnostic 12/25/22
--- OUTSIDE RECORDS SUMMARY | 2025-03-20 12:30 | XMS_ITS | Encounter Summary ---
Author Organization [place] Address [address] [place] [address]. [place] [address] Care Team Providers Care Freight Dispatcher Name Role Phone Stevie Zarco MD Primary Care Provider Zenobia Allen PA-C Unavailable [phone] Vicky Painting [facility] Unavailable [phone] Vicky Painting [facility] Unavailable [phone] Encounter Details Date Type Department Care Team (Late st Contact Info) Description 02/05/2023 [facility] Surgical Weight Loss Clinic [address] [place] [address] [place] [address] Zenobia Allen PA-C [address] [facility] [address] [place] [address] [id number] Social History Tobacco Use Types Packs/Day Years [...] on file Legal Sex Female 4:12 AM FERMENTER WINE Gender Identity Not on file Sexual Orientation [...] st Contact Info) Description 03/29/2025 9:00 AM FERMENTER WINE Virtual Visit M [facility] [place] [address] [facility] [address] [place] [phone] Lesli Castillo SURGICAL CONS WEIGHT LOSS [address] [place] [address] 04/26/2025 8:00 AM FERMENTER WINE Virtual Visit M [facility] [place] [address] [facility] [address] [place] [phone] Zenobia Allen PA-C [address] [place] [id number] documented as of this encounter Visit Diagnoses Not on filedocumented in this encounter Care Teams Freight Dispatcher Relationship Specialty Start Date End Date Stevie Zarco MD PCP - General Family Practice 02/20/12 Zenobia Allen PA-C [address] [place] [id number] Assigned Surgical Provider 05/23/23 Vicky Painting [facility] [address] [place] [address]185 Pharmacist Pharmacist 09/11/24 Vicky Painting [facility] [address] [place] [address] 930555 Assigned MTM Pharmacist 09/18/24 documented as of this encounter
--- OUTSIDE RECORDS SUMMARY | 2025-03-20 12:30 | XMS_ITS | Encounter Summary ---
Author Organization [place] Address [address] [place] [address]. [place] [address] Care Team Providers Care Patent Engineer Name Role Phone Stevie Zarco MD Primary Care Provider [phone] Zenobia Allen PA-C Unavailable [phone] Vicky Painting [facility] Unavailable [phone] Vicky Painting [facility] Unavailable [phone] Encounter Details Date Type Department Care Team (Late st Contact Info) Description 07/16/2023 MyC Medical Advice [facility] Weight Loss Clinic [address] [place] [address] Elba Welch, NAVA [facility] [address] [facility] [address] [place], [place] 7[address] Social History Tobacco Use Types Packs/Day Years [...] on file Legal Sex Female 4:12 AM MENDER HAND Gender Identity Not on file Sexual Orientation Not on file documented as of this encounter Plan of Treatment Upcoming Encounters Date Type Department Care Team (Late Contact Info) Description 03/29/2025 9:00 AM MENDER HAND Virtual Visit M [facility] [place] [address] [place] [phone] Lesli Castillo SURGICAL CONS WEIGHT LOSS [address] [place] [address] 04/26/2025 8:00 AM MENDER HAND Virtual Visit M [facility] [place] [address] [facility] [address] [place] [phone] Zenobia Allen PA-C [address] [place] [id number] documented as of this encounter Visit Diagnoses Not on filedocumented in this encounter Care Teams Patent Engineer Relationship Specialty Start Date End Date Stevie Zarco MD PCP - General Family Practice 02/20/12 Zenobia Allen PA-C [address] [place] [address] Assigned Surgical Provider 05/23/23 Vicky Painting Darin 9 [place], [place] [address] Pharmacist Pharmacist 09/11/24 Vicky Painting [facility] 9 [place] [address] Assigned MTM Pharmacist 09/18/24 documented as of this encounter
--- OUTSIDE RECORDS SUMMARY | 2025-03-20 12:31 | XMS_ITS | Encounter Summary ---
Author Organization [place] Address [address] [place] [address] Care Team Providers Care Gravel Hauler Name Role Phone Stevie Zarco MD Primary Care Provider [phone] Zenobia Allen PA-C Unavailable [phone] Vicky Painting [facility] Unavailable [phone] Vicky Painting [facility] Unavailable [phone] Encounter Details Date Type Department Care Team (Late Contact Info) Description 02/19/[address] [facility] Loss Clinic [address] [place] [address] Tabatha Dunn, NAVA Social History Tobacco Use Types Packs/Day Years [...] on file Legal Sex Female 4:12 AM PROBATION SUPERVISOR Gender Identity Not on file Sexual Orientation Not on file documented as of this encounter Plan of Treatment Upcoming Encounters Date Type Department Care Team (Late Contact Info) Description 03/29/2025 9:00 AM PROBATION SUPERVISOR Virtual Visit [facility] [address] [place] [address] Lesli Castillo SURGICAL CONS WEIGHT LOSS [address] [place] [address] 04/26/2025 8:00 AM PROBATION SUPERVISOR Virtual Visit [facility] [place] [address] [facility] [address] [place] [address] Zenobia Allen PA-C [address] [place] [address] documented as of this encounter Visit Diagnoses Not on filedocumented in this encounter Care Teams Gravel Hauler Relationship Specialty Start Date End Date Stevie Zarco MD PCP - General Family Practice 02/20/12 Zenobia Allen PA-C [address] [place] [address] Assigned Surgical Provider 05/23/23 Vicky Painting [facility] 9 [place] [address] Pharmacist Pharmacist 09/11/24 Vicky Painting [facility] 9 [place] [address] Assigned MTM Pharmacist 09/18/24 documented as of this encounter
--- OUTSIDE RECORDS SUMMARY | 2025-03-20 12:31 | XMS_ITS | Encounter Summary ---
Author Organization [place] Address [address] [place] [address] Care Team Providers Care Chocolate Production Machine Operator Name Role Phone Stevie Zarco MD Primary Care Provider [phone] Zenobia Allen PA-C Unavailable [phone] Vicky Painting [facility] Unavailable [phone] Vicky Painting [facility] Unavailable [phone] Encounter Details Date Type Department Care Team (Late Contact Info) Description 05/26/[address] [facility] Surgical Weight Loss Clinic [address] [place] [address] Sofia [...] on file Legal Sex Female 4:12 AM SFDC SOLUTION ARCHITECT Gender Identity Not on file Sexual Orientation Not on file documented as of this encounter Plan of Treatment Upcoming Encounters Date Type Department Care Team ([facility] Contact Info) Description 03/29/2025 9:00 AM SFDC SOLUTION ARCHITECT Virtual Visit [facility] Weight Loss Clinic [address] [place] [address] Lesli Castillo SURGICAL CONS WEIGHT LOSS [address] [place] [address] 04/26/2025 8:00 AM SFDC SOLUTION ARCHITECT Virtual Visit [facility] [place] [address] [facility] [address] [place] [address] Zenobia Allen PA-C [address] [place] [address] documented as of this encounter Visit Diagnoses Not on filedocumented in this encounter Care Teams Chocolate Production Machine Operator Relationship Specialty Start Date End Date Stevie Zarco MD PCP - General Family Practice 02/20/12 Zenobia Allen PA-C [address] [place] [address] Assigned Surgical Provider 05/23/23 Vicky Painting [facility] 9 [place] [address] Pharmacist Pharmacist 09/11/24 Vicky Painting [facility] 9 [place] [address] Assigned MTM Pharmacist 09/18/24 documented as of this encounter
--- OUTSIDE RECORDS SUMMARY | 2025-03-20 12:31 | XMS_ITS | Encounter Summary ---
Author Organization [place] Address [address] [place] [address] Care Team Providers Care Size Painter Name Role Phone Stevie Zarco MD Primary Care Provider [phone] Zenobia Allen PA-C Unavailable [phone] Vicky Painting [facility] Unavailable [phone] Vicky Painting [facility] Unavailable [phone] Encounter Details Date Type Department Care Team (Late Contact Info) Description 02/21/2025 MyC Medical Advice Initial Department [address] [place] [phone] Gideon Moon Social History Tobacco Use Types [...] on file Legal Sex Female 4:12 AM NETWORK PRICING CONSULTANT Gender Identity Not on file Sexual Orientation Not on file documented as of this encounter Plan of Treatment Upcoming Encounters Date Type Department Care Team (Late Contact Info) Description 03/29/2025 9:00 AM NETWORK PRICING CONSULTANT Virtual Visit [facility] Surgical Weight Loss Clinic [place] [address] [facility] [address] [place] [phone] Lesli Castillo SURGICAL CONS WEIGHT LOSS [address] [place] [address] 04/26/2025 8:00 AM NETWORK PRICING CONSULTANT Virtual Visit [facility] [place] [address] [facility] [address] [place] [address] Zenobia Allen PA-C [address] [place] [address] documented as of this encounter Visit Diagnoses Not on filedocumented in this encounter Care Teams Size Painter Relationship Specialty Start Date End Date Stevie Zarco MD PCP - General Family Practice 02/20/12 Zenobia Allen PA-C [address] [place] [address] Assigned Surgical Provider 05/23/23 Vicky Painting [facility] [address] [place] [address] Pharmacist Pharmacist 09/11/24 Vicky Painting [facility] [address] [place] [address] Assigned MTM Pharmacist 09/18/24 documented as of this encounter
--- OUTSIDE RECORDS SUMMARY | 2025-03-20 12:31 | XMS_ITS | Encounter Summary ---
Author Organization [place] Address [address] [place] [address]. [place] [address] Care Team Providers Care Reinforced Concrete Inspector Name Role Phone Stevie Zarco MD Primary Care Provider [phone] Zenobia Allen PA-C Unavailable [phone] Vicky Painting [facility] Unavailable [phone] Vicky Painting [facility] Unavailable [phone] Encounter Details Date Type Department Care Team (Late st Contact Info) Description 03/05/2024 [facility] Surgical Weight Loss Clinic [address] [place] [address] Zenobia Allen PA-C [address] [facility] [address] [place] [address]755 Social History Tobacco Use Types Packs/Day Years [...] on file Legal Sex Female 4:12 AM LAND MANAGEMENT FORESTER Gender Identity Not on file Sexual Orientation Not on file documented as of this encounter Plan of Treatment Upcoming Encounters Date Type Department Care Team (Late st Contact Info) Description 03/29/2025 9:00 AM LAND MANAGEMENT FORESTER Virtual Visit [facility] Loss Clinic [place] [address] [place] [phone] Lesli Castillo SURGICAL CONS WEIGHT LOSS [address] [place] [address] 04/26/2025 8:00 AM LAND MANAGEMENT FORESTER Virtual Visit [facility] [place] [address] [facility] [address] [place] [phone] Zenobia Allen PA-C [address] [place] [address] documented as of this encounter Visit Diagnoses Not on filedocumented in this encounter Care Teams Reinforced Concrete Inspector Relationship Specialty Start Date End Date Stevie Zarco MD PCP - General Family Practice 02/20/12 Zenobia Allen PA-C [address] [place] [address] Assigned Surgical Provider 05/23/23 Vicky Painting [facility] 9 [place] [address] Pharmacist Pharmacist 09/11/24 Vicky Painting [facility] 9 [place] [address] Assigned MTM Pharmacist 09/18/24 documented as of this encounter
--- OUTSIDE RECORDS SUMMARY | 2025-03-20 12:31 | XMS_ITS | Encounter Summary ---
Author Organization [place] Address [address] [place] [address]. [place] [address] Care Team Providers Care Life Skills Coordinator Name Role Phone Stevie Zarco MD Primary Care Provider [phone] Zenobia Allen PA-C Unavailable [phone] Vicky Painting [facility] Unavailable [phone] Vicky Painting [facility] Unavailable [phone] Encounter Details Date Type Department Care Team (Late st Contact Info) Description 07/06/2024 [facility] [address] [place] [address] Zenobia Allen PA-C [address] [facility] [address] [place] [address]7025 Social History Tobacco Use Types Packs/Day Years [...] on file Legal Sex Female 4:12 AM DIRECTOR HRIS Gender Identity Not on file Sexual Orientation Not on file documented as of this encounter Plan of Treatment Upcoming Encounters Date Type Department Care Team (Late st Contact Info) Description 03/29/2025 9:00 AM DIRECTOR HRIS Virtual Visit M [facility] Surgical Weight Loss Clinic [place] [address] [place] [phone] Lesli Castillo SURGICAL CONS WEIGHT LOSS [address] [place] [address] 04/26/2025 8:00 AM DIRECTOR HRIS Virtual Visit M [facility] Surgical Weight Loss Clinic [place] [address] [facility] [address] [place] [phone] Zenobia Allen PA-C [address] [place] [address] documented as of this encounter Visit Diagnoses Not on filedocumented in this encounter Care Teams Life Skills Coordinator Relationship Specialty Start Date End Date Stevie Zarco MD PCP - General Family Practice 02/20/12 Zenobia Allen PA-C [address] [place] [address] Assigned Surgical Provider 05/23/23 Vicky Painting [facility] 9 [place] [address] Pharmacist Pharmacist 09/11/24 Vicky Painting [facility] 9 [place] [address] Assigned MTM Pharmacist 09/18/24 documented as of this encounter
--- OUTSIDE RECORDS SUMMARY | 2025-03-20 12:31 | XMS_ITS | Encounter Summary ---
Author Organization [place] Address [address] [place] [address] Care Team Providers Care Art History Professor Name Role Phone Stevie Zarco MD Primary Care Provider [phone] Zenobia Allen PA-C Unavailable [phone] Vicky Painting [facility] Unavailable [phone] Vicky Painting [facility] Unavailable [phone] Encounter Details Date Type Department Care Team (Late Contact Info) Description 10/27/[address] [facility] Surgical Weight Loss Clinic [address] [place] [address] Nela Meier, SEED BUYER Social History Tobacco Use Types Packs/Day Years [...] on file Legal Sex Female 4:12 AM SERVICE CENTER COORDINATOR Gender Identity Not on file Sexual Orientation Not on file documented as of this encounter Plan of Treatment Upcoming Encounters Date Type Department Care Team (Late Contact Info) Description 03/29/2025 9:00 AM SERVICE CENTER COORDINATOR Virtual Visit [facility] Surgical Weight Loss [facility] [place] [address] [facility] [address] [place] [address] Lesil Castillo SURGICAL CONS WEIGHT LOSS [address] [place] [address] 04/26/2025 8:00 AM SERVICE CENTER COORDINATOR Virtual Visit [facility] [place] [address] [facility] [address] [place] [address] Zenobia Allen PA-C [address] [place] [address] documented as of this encounter Visit Diagnoses Not on filedocumented in this encounter Care Teams Art History Professor Relationship Specialty Start Date End Date Stevie Zarco MD PCP - General Family Practice 02/20/12 Zenobia Allen PA-C [address] [place] [address] Assigned Surgical Provider 05/23/23 Vicky Painting [facility] [address] [place] [address] Pharmacist Pharmacist 09/11/24 Vicky Painting [facility] 9 [place] [address] Assigned MTM Pharmacist 09/18/24 documented as of this encounter
--- OUTSIDE RECORDS SUMMARY | 2025-03-20 12:31 | XMS_ITS | Encounter Summary ---
Author Organization [place] Address [address] [place] [address] Care Team Providers Care Head Of Measurement & Insights Name Role Phone Stevie Zarco MD Primary Care Provider [phone] Zenobia Allen PA-C Unavailable [phone] Vicky Painting [facility] Unavailable [phone] Vicky Painting [facility] Unavailable [phone] Encounter Details Date Type Department Care Team (Late Contact Info) Description 02/21/2025 MyC Medical Advice Initial Department [address] [place] [phone] Gideon Moon Social History Tobacco Use Types [...] on file Legal Sex Female 4:12 AM SENIOR UI WEB DEVELOPER Gender Identity Not on file Sexual Orientation Not on file documented as of this encounter Plan of Treatment Upcoming Encounters Date Type Department Care Team (Late Contact Info) Description 03/29/2025 9:00 AM SENIOR UI WEB DEVELOPER Virtual Visit [facility] Weight Loss Clinic [place] [address] [facility] [address] [place] [phone] Lesli Castillo SURGICAL CONS WEIGHT LOSS [address] [place] [address] 04/26/2025 8:00 AM SENIOR UI WEB DEVELOPER Virtual Visit [facility] Weight Loss [facility] [place] [address] [facility] [address] [place] [phone] Zenobia Allen PA-C [address] [place] [address] documented as of this encounter Visit Diagnoses Not on filedocumented in this encounter Care Teams Head Of Measurement & Insights Relationship Specialty Start Date End Date Stevie Zarco MD PCP - General Family Practice 02/20/12 Zenobia Allen PA-C [address] [place] [address] Assigned Surgical Provider 05/23/23 Vicky Painting [facility] [address] [place] [address] Pharmacist Pharmacist 09/11/24 Vicky Painting [facility] [address] [place] [address] Assigned MTM Pharmacist 09/18/24 documented as of this encounter
--- OUTSIDE RECORDS SUMMARY | 2025-03-20 12:31 | XMS_ITS | Encounter Summary ---
Author Organization [place] Address [address] [place] [address]. [place] [address] Care Team Providers Care Candy Forming Machine Operator Name Role Phone Stevie Zarco MD Primary Care Provider [phone] Zenobia Allen PA-C Unavailable [phone] Vicky Painting [facility] Unavailable [phone] Vicky Painting [facility] Unavailable [phone] Encounter Details Date Type Department Care Team (Late st Contact Info) Description 06/22/2024 MyC Medical Advice [facility] Surgical Weight Loss Clinic [address] [place] [address] Elba Welch, N[place] [facility] [address] [place] [address] [address] [place], [place] [phone] Social History Tobacco Use Types Packs/Day Years [...] on file Legal Sex Female 4:12 AM CHILD CARE SUPERVISOR Gender Identity Not on file Sexual Orientation Not on file documented as of this encounter Plan of Treatment Upcoming Encounters Date Type Department Care Team (Late Contact Info) Description 03/29/2025 9:00 AM CHILD CARE SUPERVISOR Virtual Visit [facility] Loss [facility] [place] [address] [place] [phone] Lesli Castillo SURGICAL CONS WEIGHT LOSS [address] [place] [address] 04/26/2025 8:00 AM CHILD CARE SUPERVISOR Virtual Visit [facility] [place] [address] [facility] [address] [place] [phone] Zenobia Allen PA-C [address] [place] [id number] documented as of this encounter Visit Diagnoses Not on filedocumented in this encounter Care Teams Candy Forming Machine Operator Relationship Specialty Start Date End Date Stevie Zarco MD PCP - General Family Practice 02/20/12 Zenobia Allen PA-C [address] [place] [address] Assigned Surgical Provider 05/23/23 Vicky Painting Darin 9 [place], [place] [address] Pharmacist Pharmacist 09/11/24 Vicky Painting [facility] 9 [place] [address] Assigned MTM Pharmacist 09/18/24 documented as of this encounter
--- OUTSIDE RECORDS SUMMARY | 2025-03-20 12:31 | XMS_ITS | Encounter Summary ---
Author Organization [facility] Address [address] [place] [address]. [place] [address] Care Team Providers Care Briquetter Operator Name Role Phone Stevie Zarco MD Primary Care Provider [phone] Zenobia Allen PA-C Unavailable [phone] Vicky Painting [facility] Unavailable [phone] Vicky Painting [facility] Unavailable [phone] Reason for Referral * Med Therapy Management (Routine: Next available opening) - Closed Specialty Diagnoses / Procedures Referred By Contjosefina t Referred To Contact Pharmacist Diagnoses Postsurgical malabsorption Hx of obesity Bariatric surgery status Borderline high cholesterol Zenobia Allen, YAQUELIN [address] [facility] [address] [place] [address] Phone: tel: fax: Referral ID Status Reason Start Date Expiration Date Visits Re quested Visits Authorized [id number] Closed 06/22/2024 06/22/2025 1 1 Question Answer Type of MTM: Specialty Specialty: Weight Mgmt Course of Action: Other Reason for Referral: See pt bariatric surgical/medical on Wegovy - wt maint. Provider requests be seen in next 2-3 mos. Comments [facility] Medication Therapy Management department will contact you to schedule an appointment. You may also schedule the appointment by calling or toll-free at . This service is designed to help you get the most from your medications. A specially trained Pharmacist will work closely with you and your providers to solve any questions, concerns, issues or problems related to your medications. Please bring all of your prescription and non-prescription medications (such as vitamins, fado-fzg-dmgqbmi medications, and herbals) or a detailed medication list to your appointment. If you have a glucose meter or other home monitoring information, please also bring this to your appointment (i.e. blood glucose log, blood pressure log, pain log, etc.). TRICAL APPLIANCE PREPARER Encounter Details Date Type Department Care Team (Latest Contact Info) Description 06/19/2024 [facility] Medical Advice [facility] [address] [address] Sofia Alston RN Postsurgical malabsorption (Primary Dx); Hx of obesity; Bariatric surgery status; Borderline high cholesterol Social [...] on file Legal Sex Female 4:12 AM ELECTRICAL APPLIANCE PREPARER Gender Identity Not on file Sexual Orientation Not on file documented as of this encounter Miscellaneous Notes * Telephone Encounter - Elba Welch RN - 06/22/2024 10:15 AM ELECTRICAL APPLIANCE PREPARER BLAISE Fregoso PA-C: Can send for 2 refills but then send MTM referral in case they can see her in 2- 3 months sooner Per pt is at the Wegovy 1.7 mg dose. The 2 RF ordered along with MTM and pt notified. Elba Figueroa, MS, RD, RN TRICAL APPLIANCE PREPARER * Telephone Encounter - Elba Welch RN - 06/22/2024 9:18 AM ELECTRICAL APPLIANCE PREPARER BLAISE Fregoso PA-C - pt to start Wegovy injections every 10-14 days. Pt to do vit B12 (was advised). Per pt has one pen of the 1.7 left. Is requesting refill. CO2 33 in BMP 03/30/24 - all else WNL. Will route to provider to advise. Elba Figueroa MS, RD, RN TRICAL APPLIANCE PREPARER documented in this encounter Plan of Treatment Upcoming Encounters Date Type Department Care Team (Late st Contact Info) Description 03/29/2025 9:00 AM ELECTRICAL APPLIANCE PREPARER Virtual Visit [facility] [place] [address] [facility] [address] [place] [phone] Lesli Castillo [facility] [address] [place] [id number] 04/26/2025 8:00 AM ELECTRICAL APPLIANCE PREPARER Virtual Visit [facility] [place] [address] [facility] [address] [place] [phone] Zenobia Allen PA-C [address] [place], [place] [address] Scheduled Referrals Name Type Priority Associated Diagnoses Orde r Schedule Med Therapy Management Referral Referral Routine: Next available opening Postsurgical malabsorption Hx of obesity Bariatric surgery status Borderline high cholesterol Ordered: 06/22/2024 documented as of this encounter Visit Diagnoses Diagnosis Postsurgical malabsorption- Primary Other and unspecified postsurgical nonabsorption Hx of obesity Personal history of other specified diseases Bariatric surgery status Borderline high cholesterol Unspecified disorder of lipoid metabolism documented in this encounter Care Teams Briquetter Operator Relationship Specialty Start Date End Date Stevie Zarco MD PCP - General Family Practice 02/20/12 Zenobia Allen PA-C [address] [place] [address] Assigned Surgical Provider 05/23/23 Vicky Painting [place] [address] [place], [place] [phone] Pharmacist Pharmacist 09/11/24 Vicky Painting [facility] [address] [place], [place] [id number] Assigned MTM Pharmacist 09/18/24 documented as of this encounter
--- OUTSIDE RECORDS SUMMARY | 2025-03-20 12:31 | XMS_ITS | Encounter Summary ---
Author Organization [facility] Address [address] [place] [address] Care Team Providers Care Automatic Steel Tie Adjuster Name Role Phone Stevie Zarco MD Primary Care Provider [phone] Zenobia Allen PA-C Unavailable [phone] Vicky Painting [facility] Unavailable [phone] Vicky Painting [facility] Unavailable [phone] Encounter Details Date Type Department Care Team (Late Contact Info) Description 02/21/2025 [facility] Medical Advice Initial Department [address] [place] [phone] Gideon Moon Social History Tobacco Use Types [...] on file Legal Sex Female 4:12 AM MINE WEDGE SAWYER Gender Identity Not on file Sexual Orientation Not on file documented as of this encounter Plan of Treatment Upcoming Encounters Date Type Department Care Team (Late Contact Info) Description 03/29/2025 9:00 AM MINE WEDGE SAWYER Virtual Visit [facility] [place] [address] [facility] [address] [place] [phone] Lesli Castillo SURGICAL CONS WE[facility] [address] [place] [address] 04/26/2025 8:00 AM MINE WEDGE SAWYER Virtual Visit [facility] [place] [address] [facility] [address] [place] [address] Zenobia Allen PA-C [address] [place] [address] documented as of this encounter Visit Diagnoses Not on filedocumented in this encounter Care Teams Automatic Steel Tie Adjuster Relationship Specialty Start Date End Date Stevie Zarco MD PCP - General Family Practice 02/20/12 Zenobia Allen PA-C [address] [place] [address] Assigned Surgical Provider 05/23/23 Vicky Painting [facility] [address] [place] [address] Pharmacist Pharmacist 09/11/24 Vicky Painting [facility] [address] [place] [address] Assigned MTM Pharmacist 09/18/24 documented as of this encounter
--- OUTSIDE RECORDS SUMMARY | 2025-03-20 12:31 | XMS_ITS | Encounter Summary ---
Author Organization [facility] Address [address] [place] [address]. [place] [address] Care Team Providers Care Supervisor Final Name Role Phone Stevie Zarco MD Primary Care Provider [phone] Zenobia Allen PA-C Unavailable [phone] Vicky Painting [facility] Unavailable [phone] Vicky Painting [facility] Unavailable [phone] Encounter Details Date Type Department Care Team (Late st Contact Info) Description 06/24/2024 My[facility] Medical Advice [facility] [address] [place] [id number] Yaw Duckworth Social History Tobacco Use Types Packs/Day Years [...] on file Legal Sex Female 4:12 AM TIRE CURER Gender Identity Not on file Sexual Orientation Not on file documented as of this encounter Plan of Treatment Upcoming Encounters Date Type Department Care Team (Late Contact Info) Description 03/29/2025 9:00 AM TIRE CURER Virtual Visit [facility] Loss [facility] [address] [place] [phone] Lesli Castillo SURGICAL CONS WEIGHT LOSS [address] [place] [address] 04/26/2025 8:00 AM TIRE CURER Virtual Visit [facility] [place] [address] [facility] [address] [place] [address] Zenobia Allen PA-C [address] [place] [address] documented as of this encounter Visit Diagnoses Not on filedocumented in this encounter Care Teams Supervisor Final Relationship Specialty Start Date End Date Stevie Zarco MD PCP - General Family Practice 02/20/12 Zenobia Allen PA-C [address] [place] [address] Assigned Surgical Provider 05/23/23 Vicky Painting [facility] [address] [place] [address] Pharmacist Pharmacist 09/11/24 Vicky Painting [facility] [address] [place] [address] Assigned MTM Pharmacist 09/18/24 documented as of this encounter
--- OUTSIDE RECORDS SUMMARY | 2025-03-20 12:31 | XMS_ITS | Patient Health Record ---
Author Organization [facility] Address [address] [place] [address] Care Team Providers Care Clinical Pharmacist Name Role Phone Stevie Zarco Primary Care Provider Unavail able [place] RIVAS [phone] Allergies Allergen (clinical drug ingredient) Drug/Non Drug Allergy documented on EMR Reaction Allergy Type Onset Date Status Substance with penicillin structure and antibacterial mechanism of action (substance) Penicillins Group (uncoded) Skin Allergy; Allergy Active amoxicillin amoxicillin Skin Allergy; Drug Allergy Active erythromycin erythromycin ethylsuccinate Skin Allergy; Drug Allergy Active Reason For Referral No Information Medications Medication SIG (Take, Route, Frequency, Duration) Notes Start Date End Date Status Cefprozil ; Duration: 10 09/03/2016 Not- Taking Medrol (Silvino) SpecialInstructi on : take one dose pack as instructed. 09/03/2016 Not-Taking Omeprazole ; Duration: 09/03/2016 Not -Taking Problems Problem Type SNOMED Code ICD Code Onset Dates Problem Status W/U Status Risk Notes Problem Parotitis (46815071) Parotitis (K11.20) Active confirmed Problem Acute sialoadenitis (127157862) Acute sialoadenitis (K11.21) 09/04/19 17 0 confirmed [id number] Plan Of Treatment No Information Insurance Providers Payer Name Payer Address Payer Phone Subscriber Number Group Number Insured Name Patient Relationship to Insured Coverage Start Date Coverage End Date [employer] [facility] [address] [address] [place] [address] [id number] [id number] Andi Carter Spouse - patient is the spouse of the insured [place] [address] [facility] [place] [phone] [id number] Roula Carter Self - patient is the insured Medical (General) History Surgical History Surgery Date(Month/Year) 3 c sections Ear
--- OUTSIDE RECORDS SUMMARY | 2025-03-20 12:31 | XMS_ITS | Encounter Summary ---
Author Organization [facility] Address [address] [place] [address] Care Team Providers Care Apprentice Carpenter Name Role Phone Stevie Zarco MD Primary Care Provider [phone] Zenobia Allen PA-C Unavailable [phone] Vicky Painting [facility] Unavailable [phone] Vicky Painting [facility] Unavailable [phone] Encounter Details Date Type Department Care Team (Late Contact Info) Description 11/19/2024 My[facility] Medical Advice [facility] Multiple Specialty [address] [address] Vicky Painting, [facility] [address] [place] [address] Social History Tobacco Use Types Packs/Day Years [...] on file Legal Sex Female 4:12 AM INTERNAL MEDICINE DOCTOR Gender Identity Not on file Sexual Orientation Not on file documented as of this encounter Plan of Treatment Upcoming Encounters Date Type Department Care Team (Late Contact Info) Description 03/29/2025 9:00 AM INTERNAL MEDICINE DOCTOR Virtual Visit [facility] [place] [address] [facility] [address] [place] [address] Lesli Castillo SURGICAL CONS WE[facility] [address] [place] [address] 04/26/2025 8:00 AM INTERNAL MEDICINE DOCTOR Virtual Visit [facility] [place] [address] [facility] [address] [place] [phone] Zenobia Allen PA-C [address] [place] [address] documented as of this encounter Visit Diagnoses Not on filedocumented in this encounter Care Teams Apprentice Carpenter Relationship Specialty Start Date End Date Stevie Zarco MD PCP - General Family Practice 02/20/12 Zenobia Allen PA-C [address] [place] [address] Assigned Surgical Provider 05/23/23 Vciky Painting [facility] [address] [place], [place] [address] Pharmacist Pharmacist 09/11/24 Vicky Painting [facility] [address] [place] [address] Assigned MTM Pharmacist 09/18/24 documented as of this encounter
--- OUTSIDE RECORDS SUMMARY | 2025-03-20 12:31 | XMS_ITS | Encounter Summary ---
Author Organization [facility] Address [address] [place] [address] Care Team Providers Care Regrinder Operator Name Role Phone Stevie Zarco MD Primary Care Provider [phone] Josafat Farfan MD Unavailable Unavailable Josafat Farfan MD Unavailable Unavailable Albert Meehan DPM Unavailable [phone] Zenobia Allen PA-C Unavailable [phone] Vicky Painting [facility] Unavailable [phone] Vicky Painting [facility] Unavailable [phone] Reason for Visit * Reason Onset Date Comments Medication Question 11/15/2017 Encounter Details Date Type Department Care Team (Late st Contact Info) Description 11/15/[address], [address] [place] [address] Josafat Farfan MD NO INFO AVAILABLE 02/14/2022 Medication Question Social History Tobacco Use Types Packs/Day Years Used Date Smoking Tobacco: Never Smokeless Tobacco: Never Alcohol Use Standard Drinks/Week Comments Yes 0 (1 standard drink = 0.6 oz pur e alcohol) occ wine Comments No Sex and Gender Information Value Date Recorded Sex Assigned at Not on file Legal Sex Female 4:12 AM CAN TENDER Gender Identity Not on file Sexual Orientation Not on file documented as of this encounter Miscellaneous Notes * Telephone Encounter - Audrey Burch - 11/25/2017 2:56 PM CDT Rx faxed to [facility] * Telephone Encounter - Josafat Farfan - 11/25/2017 1:18 PM CDT Printed Rx for Belviq is at the Rx-to-fax bin. * Telephone Encounter - Tereza Diaz RN - 11/21/2017 3:22 PM CDT Spoke with Roula. She will taper starting today. She would like an Rx for a branded appetite suppressant to her pharmacy. She understands that we won't know the cost until Rx is run through insurance, and she can decline at pharmacy if cost prohibitive. Pharmacy confirmed. Thank you, Tereza Diaz RN * Telephone Encounter - Alexia Billingsley RN - 11/21/2017 1:14 PM CDT Left message to call triage back (message too long to leave detailed message) Nancy Billingsley RN- Triage [facility] * Telephone Encounter - Josafat Farfan - 11/21/2017 12:58 PM CDT If the Wellbutrin is not working by now in suppressing her appetite, it will unlikely work for her.Please advise patient to wean off the Wellbutrin as follows: 1 tablet once a day for one week, one tablet every other day for 1 week, then stop. We will need to resort to branded appetite suppressants, but they will unlikely be covered by the patient's insurance and can be expensive. Please ask patient if she would like to give them a try. The really most important aspect of weight management is for her to be consistent and accurate withmaintaining a calorie deficit. In fact today, I saw 72-year-old gentleman who is not in any appetite suppressants has already lost 30 pounds and he has done it by being consistent with this low calorie meal plans. * Telephone Encounter - Daphne Cota RN - 11/20/2017 2:16 PM CDT Update on Bupropion Pt takes 150mg BID and wonders if needing increase as she is feeling tired all the time. Denies any improvement with appetite control or weight loss. Denies any mood changes or other side effects. Please advise on any dose changes to this med, or if pt should wait longer on this dosing. Daphne Cota RN Pt call back, ok to leave vm. [phone] * Telephone Encounter - Trevor Jackman - 11/20/2017 2:14 PM CDT Patient calling back x RN Thank you * Telephone Encounter - Sofia Valencia - 11/19/2017 8:33 AM CDT Pt returned call this morning. She has upped her bupropion to 1 tablet BID, feels nothing but tired. She was supposed to update Dr. Farfan how it was working. Please return call. Please call pt at [phone] DO NOT LEAVE A MESSAGE. * Telephone Encounter - Lucero Cano RN - 11/18/2017 11:17 AM CDT Left message for pt to call back. * Telephone Encounter - Pooja Encinas RN - 11/15/2017 12:39 PM CDT Left message on answering machine for patient to call back. RX Bupropion 150mg tabs were just recently Rx'd: 11-01-17. Patient to take 1 tab daily x 3 days--then increase to 1 tab BID. Associated Dx: Overweight. (RN will not be able to refill RX in future with this DX. Not on our protocols). Plan---confirm patient's current dose. Did patient increase to 1 tab BID as advised? Pooja Brar RN,BSN * Telephone Encounter - Trevor Jackman - 11/15/2017 11:58 AM CDT Reason for Call: Medication or medication refill: Do you use a [facility]? Name of the pharmacy and phone number for the current request: [id number] - [place], [place] - [address] [address] Name of the medication requested: Bupropion Other request: she is asking if can increase her dose for this Medication Please call her once this has been approved and sent to the Pharmacy Can we leave a detailed message on this number? YES Phone number patient can be reached at: Home number on file [phone] (home) Best Time: anytim Call taken on 11/15/2017 at 11:59 AM by Trevor Jackman documented in this encounter Plan of Treatment Upcoming Encounters Date Type Department Care Team (Late st Contact Info) Description 03/29/2025 9:00 AM CAN TENDER Virtual Visit M [facility] [address] [place] [phone] Lesli Castillo SURGICAL CONS WEIGHT LOSS [address] [place] [address] [place] [address] 04/26/2025 8:00 AM CAN TENDER Virtual Visit M [facility] [place] [address] [facility] [place] [phone] Zenobia Allen PA-C [address] [place] [address] documented as of this encounter Visit Diagnoses Diagnosis Overweight (BMI 25.0-29.9)- Primary Overweight documented in this encounter Care Teams Regrinder Operator Relationship Specialty Start Date End Date Stevie Zarco MD PCP - General Family Practice 02/20/12 Josafat Farfan MD NO INFO AVAILABLE 02/14/2022 PCP - Assigned PCP 08/02/17 07/01/18 Josafat Farfan MD NO INFO AVAILABLE 02/14/2022 Assigned PCP 08/02/17 11/10/20 Albert Meehan DPM [address] [facility] [address] [place] [address] Assigned Musculoskeletal Provider 02/19/20 06/25/20 Zenobia Allen PA-C [address] [place] [address] Assigned Surgical Provider 05/23/23 Vicky Painting [facility] [address] [place] [id number] Pharmacist Pharmacist 09/11/24 Vicky Painting [facility] 9 [place], [place] [address] Assigned MTM Pharmacist 09/18/24 documented as of this encounter
--- OUTSIDE RECORDS SUMMARY | 2025-03-20 12:31 | XMS_ITS | Encounter Summary ---
Author Organization [facility] Address [address] [place] [address]. [place] [address] Care Team Providers Care Architecture Department Chair Name Role Phone Stevie Zarco MD Primary Care Provider [phone] Zenobia Allen PA-C Unavailable [phone] Vicky Painting [facility] Unavailable [phone] Vicky Painting [facility] Unavailable [phone] Encounter Details Date Type Department Care Team (Late st Contact Info) Description 01/22/[address] [facility] Medical Advice [facility] [address] [place] [address] Zenobia Allen PA-C [address] [facility] [address] [place] [id number] Social History Tobacco Use Types Packs/Day Years [...] on file Legal Sex Female 4:12 AM PHOTO MANAGER Gender Identity Not on file Sexual Orientation Not on file documented as of this encounter Plan of Treatment Upcoming Encounters Date Type Department Care Team (Late st Contact Info) Description 03/29/2025 9:00 AM PHOTO MANAGER Virtual Visit M [facility] [place] [address] [place] [phone] Lesli Castillo SURGICAL CONS WEIGHT LOSS [address] [place] [address] 04/26/2025 8:00 AM PHOTO MANAGER Virtual Visit M [facility] [place] [address] [facility] [address] [place] [phone] Zenobia Allen PA-C [address] [place] [address] documented as of this encounter Visit Diagnoses Not on filedocumented in this encounter Care Teams Architecture Department Chair Relationship Specialty Start Date End Date Stevie Zarco MD PCP - General Family Practice 02/20/12 Zenobia Allen PA-C [address] [place] [address] Assigned Surgical Provider 05/23/23 Vicky Painting [facility] 9 [place] [address] Pharmacist Pharmacist 09/11/24 Vicky Painting [facility] 9 [place] [address] Assigned MTM Pharmacist 09/18/24 documented as of this encounter
--- OUTSIDE RECORDS SUMMARY | 2025-03-20 12:31 | XMS_ITS | Encounter Summary ---
Author Organization [place] Address [address] [place] [address]. [place] [address] Care Team Providers Care Theatrical Trouper Name Role Phone Stevie Zarco MD Primary Care Provider [phone] Zenobia Allen PA-C Unavailable [phone] Vicky Painting [facility] Unavailable [phone] Vicky Painting [facility] Unavailable [phone] Encounter Details Date Type Department Care Team (Late st Contact Info) Description 02/17/2024 [facility] [address] [place] [phone] Zenobia Allen PA-C [address] [facility] [address] [place] [id number] Social History Tobacco Use Types Packs/Day Years [...] on file Legal Sex Female 4:12 AM CARPET CLEANING TECHNICIAN Gender Identity Not on file Sexual Orientation Not on file documented as of this encounter Plan of Treatment Upcoming Encounters Date Type Department Care Team (Late st Contact Info) Description 03/29/2025 9:00 AM CARPET CLEANING TECHNICIAN Virtual Visit [facility] [place] [address] [place] [phone] Lesli Castillo [facility] [address] [place] [address] 04/26/2025 8:00 AM CARPET CLEANING TECHNICIAN Virtual Visit [facility] [place] [address] [facility] [address] [place] [phone] Zenobia Allen PA-C [address] [place] [id number] documented as of this encounter Visit Diagnoses Not on filedocumented in this encounter Care Teams Theatrical Trouper Relationship Specialty Start Date End Date Stevie Zarco MD PCP - General Family Practice 02/20/12 Zenobia Allen PA-C [address] [place] [id number] Assigned Surgical Provider 05/23/23 Vicky Painting [facility] [address] [place] [address] Pharmacist Pharmacist 09/11/24 Vicky Painting [facility] [address] [place] [address] Assigned MTM Pharmacist 09/18/24 documented as of this encounter
[2025-03-20 12:33] VITALS: BP 132/78; PULSE 73; RESP 16; TEMP 36.7; O2SAT 98; BMI 23.0
--- NOTE | 2025-03-20 12:52 | CRLHL7_ITS ---
For Patients: As a result of the 21st Century Cures Act, medical imaging exams and procedure reports are released immediately into your electronic medical record. You may view this report before your referring provider. If you have questions, please contact your health care provider. INDICATION: Flank pain, kidney stone suspected. TECHNIQUE: CT abdomen and pelvis without contrast, stone protocol. COMPARISON: None. FINDINGS: Evaluation of the visceral organs is limited due to the lack of intravenous contrast. Kidney/ureters/bladder: Kidneys are normal in caliber. No kidney or ureteral stones and no hydronephrosis. No sign of perinephric inflammation. Ureters are normal in caliber. Unremarkable bladder. Right interpolar simple cyst (2/39). Liver/gallbladder/bile ducts: The liver is normal in size, shape and attenuation. Cholelithiasis with no wall thickening or pericholecystic fluid. No intra or extrahepatic biliary ductal dilatation. Spleen/pancreas/adrenal glands: The spleen, adrenal glands and pancreas are within normal limits. GI tract: Postsurgical sequela of the stomach with small hiatal hernia. Small and large bowel is normal in caliber without obstruction. Intact bowel anastomosis in the left upper quadrant. Normal appendix (2/92). No pneumatosis, pneumoperitoneum or portal venous gas. Colonic stool burden is within normal limits. Abdominal wall/omentum/peritoneum: No free air or significant free fluid. No mass or inflammation. Lymph nodes: No lymphadenopathy. Pelvis: Unremarkable pelvis. Scattered pelvic phleboliths. Lower chest: No suspicious pulmonary nodule or consolidation. No basilar effusion. Heart base demonstrates mild calcification of the aortic valve (2/5). Partially visualized bilateral breast implants. Osseous structures: No acute fracture. No aggressive appearing lytic or blastic osseous lesions. Mild degenerative changes of the partially visualized thoracic spine. Lucent lesion in the proximal right femoral metadiaphysis measuring 2.1 x 2 x 2.8 cm (2/130, 4/166) with sclerotic rim and no internal matrix. There is a narrow zone of transition with no cortical breakthrough or soft tissue mass. Findings are most compatible with an intraosseous cyst. IMPRESSION: : Evaluation of the visceral organs is limited due to lack of intravenous contrast. 1. No current kidney or ureteral stones and no hydronephrosis. No specific findings to explain flank pain. 2. No acute pathology in the abdomen or pelvis on noncontrast exam. Nonobstructive bowel and normal appendix. 3. No acute fracture. Lucent lesion in the proximal right femoral metadiaphysis measuring 2.1 x 2 x 2.8 cm with sclerotic rim and no internal matrix. There is a narrow zone of transition with no cortical breakthrough or soft tissue mass. These are all benign features and findings are most compatible with an intraosseous cyst. Given this location, patient may be at risk of a fracture. Recommend a nonemergent radiograph of the right femur for further characterization and outpatient Ortho consultation. 4. Cholelithiasis without acute cholecystitis. 5. Mild calcification of the aortic valve, premature given patient`s age. Consider outpatient cardiology consultation. Please note that all CT scans at this facility use dose modulation, iterative reconstruction, and/or weight-based dosing when appropriate to reduce radiation dose to as low as reasonably achievable. Dictated by Lorenzo Roth MD @ 03/20/2025 2:51:35 PM (Electronically Signed)
--- NOTE | 2025-03-20 12:53 | CRLHL7_ITS ---
For Patients: As a result of the Century Cures Act, medical imaging exams and procedure reports are released immediately into your electronic medical record. You may view this report before your referring provider. If you have questions, please contact your health care provider. INDICATION: One-week of chills. TECHNIQUE: Chest 1 view. COMPARISON: None FINDINGS: Cardiovascular and mediastinum: Heart size and vasculature are normal in caliber and appearance. Mediastinum is within normal limits. Lungs and pleural space: Lungs are clear. No sign of infiltrate or mass. No sign of pleural effusion. No pneumothorax. Bones and soft tissues: No significant findings. IMPRESSION: Unremarkable chest. Dictated by Christopher Hall MD @ 03/20/2025 2:27:11 PM (Electronically Signed)
--- NOTE | 2025-03-20 12:55 | ED_ITS ---
HPI - General Adult General Chief complaint: Weakness Stated complaint: weakness, back pain Time Seen by Provider: 03/20/25 12:46 History of Present Illness HPI narrative: Patient is a 59-year-old female who has had 1 week history of what started out as left-sided low back pain. She was seen in the clinic and had blood work as well as a urinalysis done that were by her report negative. The patient got steroids and some pain medication and feels like her back is little bit improved but she still has some occasional left-sided low back pain and CVA area tenderness pain. The patient denies dysuria frequency or gross hematuria patient also denies chest pain or breathing problem. She has felt chills but has not had any fever rigors. She has generally quite healthy she has history carpal tunnel syndrome. She has had bilateral ovary removal and by chart report hysterectomy. Abdominal plasty and C-sections are other abdominal surgery. She has sickle cell trait but not disease. She presents to ER concerned about her condition. She states that is really unusual for her to be tired and not feel well. No cough, no dysuria as mention no diarrhea. No abdominal pain of significance although she does have left flank pain. She has also had gastric bypass. Related Data Home Medications ?Medication ?Instructions ?Recorded ?Confirmed omeprazole 20 mg capsule,delayed 20 mg PO DAILY 01/27/25 release multivitamin (Daily Multi-Vitamin 1 tab PO DAILY 01/1301/27/25 tablet) methocarbamol 750 mg tablet 750 mg PO Q6H PRN 03/20/25 03/20/25 Previous Rx's ?Medication ?Instructions ?Recorded prednisone 20 mg tablet See Rx Instructions PO QDAY #12 01/04/25 tabs triamcinolone acetonide 0.1 % 1 applic topical BID #45 4 grams 01/04/25 topical cream Allergies Allergy/AdvReac Type Severity Reaction Status Date / Time amoxicillin Allergy Intermediate Rash Verified 03/20/25 12:32 erythromycin base Allergy Mild Rash Verified 03/20/25 12:32 Penicillins Allergy Mild Rash Verified 03/20/25 12:32 Review of Systems Status of ROS: Reports: 6 or more systems reviewed and unremarkable except as noted in History and below [facility] Medical History Renal cyst, right ?N28.1 - Cyst of kidney, acquired (ICD-10) Uncomplicated alcohol dependence ?F10.20 - Alcohol dependence, uncomplicated (ICD-10) Chronic left shoulder pain ?M25.512 - Pain in left shoulder (ICD-10) ?G89.29 - Other chronic pain (ICD-10) Sickle cell trait ?D57.3 - Sickle-cell trait (ICD-10) Colon polyps ?K63.5 - Polyp of colon (ICD-10) Unspecified constipation ?K59.00 - Constipation, unspecified (ICD-10) GERD (gastroesophageal reflux disease) ?K21.9 - Gastro-esophageal reflux disease without esophagitis (ICD-10) Gallstone ?K80.20 - Calculus of gallbladder without cholecystitis without obstruction (ICD-10) TMJ (dislocation of temporomandibular joint) ?S03.00XA - Dislocation of jaw, unspecified side, initial encounter (ICD-10) Hard of hearing ?H91.90 - Unspecified hearing loss, unspecified ear (ICD-10) Vitamin B 12 deficiency ?E53.8 - Deficiency of other specified B group vitamins (ICD-10) Osteopenia ?M85.80 - Other specified disorders of bone density and structure, unspecified site (ICD-10) Vitamin D deficiency ?E55.9 - Vitamin D deficiency, unspecified (ICD-10) Hyperlipidemia ?E78.5 - Hyperlipidemia, unspecified (ICD-10) Surgical History History of carpal tunnel surgery of right wrist (01/13/25) ?Z98.890 - Other specified postprocedural states (ICD-10) History of tubal ligation ?Z98.51 - Tubal ligation status (ICD-10) History of arthroscopy of left shoulder (11/04/20) ?Z98.890 - Other specified postprocedural states (ICD-10) History of 3 sections ?Z98.891 - History of uterine scar from previous surgery (ICD-10) History of ear surgery ?Z98.890 - Other specified postprocedural states (ICD-10) H/O breast augmentation ?Z98.82 - Breast implant status (ICD-10) H/O abdominoplasty ?Z98.890 - Other specified postprocedural states (ICD-10) H/O total hysterectomy with bilateral salpingo-oophorectomy (BSO) (2007) ?Z90.710 - Acquired absence of both cervix and uterus (ICD-10) ?Z90.722 - Acquired absence of ovaries, bilateral (ICD-10) ?Z90.79 - Acquired absence of other genital organ(s) (ICD-10) History of gastric bypass (2009) ?Z98.84 - Bariatric surgery status (ICD-10) Social History Smoking Status: Never smoker Do you use any of these nicotine containing products: None Second hand tobacco smoke exposure: No Non-prescribed substance use: denies use Exam Narrative: Exam Narrative: Objective: Patient's vital signs are within normal limits She is alert orient x3 no distress No scleral icterus Mouth clear Neck is supple Chest clear Heart rhythm regular no murmur Abdomen benign soft Extremities are no edema neurologic nonfocal. Const: Vital Signs, click to edit/add: Vital Signs - 24 hr 03/20/25 12:33 03/20/25 14:00 Temperature 98.0 F Pulse Rate 59 L Pulse Rate [Pulse Oximeter] 73 Respiratory Rate 16 14 Blood Pressure 167/82 H Blood Pressure [Ri ght Upper Arm] 132/78 Pulse Oximetry 98 98 Oxygen Delivery Me thod Room Air Course Vital Signs Vital signs: Initial Vital Signs Temperature 98.0 F 03/20/25 12:33 Temperature Source Temporal Artery Scan 03/20/25 12:33 Pulse Rate 73 03/20/25 12:33 Respiratory Rate 16 03/20/25 12:33 Blood Pressure 132/78 03/20/25 12:33 Blood Pressure Mean 96 03/20/25 12:33 Blood Pressure Position Sitting 03/20/25 12:33 Pulse Oximetry 98 03/20/25 12:33 Oxygen Delivery Method Room Air 03/20/25 12:33 Vital Signs Temperature 98.0 F 03/20/25 12:33 Pulse Rate 73 03/20/25 12:33 Respiratory Rate 16 03/20/25 12:33 Blood Pressure 132/78 03/20/25 12:33 Pulse Oximetry 98 03/20/25 12:33 Oxygen Delivery Method Room Air 03/20/25 12:33 Temperature 98.0 F 03/20/25 12:33 Pulse Rate 59 L 03/20/25 14:00 Respiratory Rate 14 03/20/25 14:00 Blood Pressure 167/82 H 03/20/25 14:00 Pulse Oximetry 98 03/20/25 14:00 Oxygen Delivery Method Room Air 03/20/25 12:33 Medications Administered Medications: Discontinued Medications Generic Name Dose Route Start Last Admin Trade Name Luisq PRN Reason Stop Dose Admin Sodium Chloride 1,000 mls @ 6,000 mls/hr 03/20/25 13:00 03/20/25 14:49 0.9 % Sodium Chloride 1000 Ml IV 03/20/25 13:09 Infused .Q10M [facility] Infusion Medical Decision Making MDM Narrative Medical decision making narrative: [age] year old female with 1 week history of chills and weakness. Symptoms started with some left low back pain and chills, the patient was on prednisone briefly. Today her white count may be elevated from her prednisone use. I think at this time it is reasonable to rule out infectious cause, metabolic disorder. Would rule out intra-abdominal pathology such as a kidney stone that might be infected. Recheck her UA. IV fluid to be given. COVID and influenza swab done. Chest x-ray taken. This point differential be broad including intra-abdominal pathology, kidney stone, UTI, bacteremia, etc.. I think a blood culture be reasonable as well. Disposition pending findings above. Addendum 3:00 p.m.: The patient's lactate is normal, urinalysis is pending, white count hemoglobin are normal, her chest x-ray by my review shows no acute changes, her CT scan of her abdomen pelvis without contrast show 1. Cholelithiasis without acute cholecystitis 2. No acute pathology in the abdomen, appendix appears normal 3. Patient has a bone island in her proximal femur on the right and possibility would be for increased risk of fracture and patient should consult Orthopedics regarding this 4. Mild calcification of the aortic valve premature given the patient's age. Recommend review this with primary care perhaps consider echocardiogram as an outpatient. I am awaiting the rest of her labs at this point. Addendum 3:15 p.m.: He the patient has relatively reassuring labs, negative viral studies, await a urinalysis this point this is negative would recommend home rest observation off work for couple of days, and follow up with the 4 point list with primary care that I outlined for her on her discharge note. Lab Data Labs: Lab Results 03/20/25 03/20/25 03/20/25 Range/Units 13:10 14:25 15:17 WBC 8.93 (4.50-11.00) K/uL RBC 5.10 (4.00-5.20) m/uL Hgb 14.7 (12.0-16.0) gm/dL Hct 43.4 (33.0-51.0) % MCV 85 (80-100) fL MCH 29 (26-34) pg MCHC 34 (32-36) gm/dL RDW Coeff of Adam 13.2 (11.5-15.5) % Plt Count 258 (140-440) K/uL Neut % (Auto) 75.4 H (42.0-72.0) % Lymph % (Auto) 13.9 L (20-44) % King % (Auto) 10.4 (0.0-11.0) % Eos % (Auto) 0.0 (0.0-7.0) % Baso % (Auto) 0.1 (0.0-3.0) % Neut # (Auto) 6.70 (1.7-7.0) K/uL Lymph # (Auto) 1.20 (0.90-2.90) K/uL King # (Auto) 0.90 (0.00-0.90) K/UL Eos # (Auto) 0.00 (0.00-0.50) K/uL Baso # (Auto) 0.01 (0.00-0.30) K/uL Abs Immat Gran (auto) 0.02 (0.00-0.30) K/uL Imm/Tot Granulo (auto) 0.2 % Sodium 137 (135-149) mmol/L Potassium 3.7 (3.6-5.1) mmol/L Chloride 103 (96-114) mmol/L Carbon Dioxide 26 (20-32) mmol/L Anion Gap 8 (7-15) mEq/L BUN 10 (7-30) mg/dL Creatinine 0.5 (0.5-1.5) mg/dL Estimated Creat Clear 46.53 Estimated GFR 107 ml/min Glucose 88 (60-115) mg/dL Lactate 1.2 (0.5-1.9) mmol/L Calcium 8.5 (8.4-10.6) mg/dL Total Bilirubin 0.6 (0.1-1.5) mg/dL Direct Bilirubin 0.3 (0.0-0.5) mg/dL AST 43 H (12-35) U/L ALT 82 H (4-35) U/L Alkaline Phosphatase 62 (40-150) U/L Troponin I < 0.01 (0.01-0.04) ng/mL C-Reactive Protein < 0.5 L (0.5-1.0) mg/dL Total Protein 6.8 (6.0-8.3) g/dL Albumin 3.7 (3.3-5.0) g/dL Amylase 91 H (18-89) U/L Urine Color Yellow (Yellow) Urine Appearance Clear (Clear) Urine pH 6.5 (5.0-8.5) Ur Specific Morrison 1.015 (1.000-1.030) Urine Protein Negative (Negative) Urine Glucose (UA) Negative (Negative) Urine Ketones Negative (Negative) Urine Blood Negative (Negative) Urine Nitrite Negative (Negative) Urine Bilirubin Negative (Negative) Urine Urobilinogen 0.2 (0.2-1.0) Ur Leukocyte Esterase 1+ A (Negative) Urine RBC 0-2 (0-2) Urine WBC 0-2 (0-5) Ur Squamous Epith Cells Few (None-Few) Urine Bacteria Few A (None) SARS-CoV-2 (PCR) Negative SARS-CoV-2 (Negative) Influenza Type A (PCR) Negative PCR FLU A (Negative) Influenza Type B (PCR) Negative PCR FLU B (Negative) RSV (PCR) Negative PCR RSV (Negative) Discharge Plan Discharge Clinical Impression: Fatigue, Chills, Acute viral syndrome Patient Disposition: Home w/ Parent or Adult Condition: Stable Additional Instructions: Rest, fluids, light activity, Tylenol, recommend a few days off work. Follow-up from your CT scan would include 1. You have gallstones but no active gallbladder infection 2. Your aortic valve has some mild calcium and recommend he discuss this with your regular doctor. This a little bit premature for age. 3. Your right hip area femur has a intraosseous cyst, this can increase her risk of fracture in that area and he should talk to Ortho about that. Recommend follow-up with your regular physician the next 5-7 days to discuss some of these issues and see how your doing. Recommend off work for a few days. Activity Level: Light activity Discharge Diet: Regular Prescriptions: No Action prednisone 20 mg tablet See Rx Instructions PO QDAY Qty: 12 0RF Rx Instructions: Take 2 tabs PO QAM x 4 days, then 1 tab PO QAM x 4 days triamcinolone acetonide 0.1 % cream 1 applic topical BID Qty: 454 0RF omeprazole 20 mg capsule,delayed release(DR/EC) 20 mg PO DAILY multivitamin [Daily Multi-Vitamin] Tablet 1 tab PO DAILY methocarbamol 750 mg tablet 750 mg PO Q6H PRN Follow Up/Referrals: Stevie Zarco MD [Primary Care Provider, Family Practice] Stand Alone Forms: [employer] Info Instructions
[2025-03-20 14:00] VITALS: BP 167/82; PULSE 59; RESP 14; O2SAT 98
[2025-03-20 14:30] LABS: Lactate* 1.2 mmol/L (0.5-1.9)
[2025-03-20 14:34] LABS: Hematocrit* 43.4 % (33.0-51.0); Hemoglobin* 14.7 gm/dL (12.0-16.0); Immature Granulocytes Abs Auto 0.02 K/uL (0.00-0.30); Immature Granulocytes Pct Auto 0.2 %; Mean Corpuscular HGB Conc 34 gm/dL (32-36); Mean Corpuscular Hemoglobin 29 pg (26-34); Mean Corpuscular Volume 85 fL (80-100); RDW Coefficient of Variation % 13.2 % (11.5-15.5); Red Blood Count* 5.10 m/uL (4.00-5.20); White Blood Count* 8.93 K/uL (4.50-11.00)
[2025-03-20 14:36] LABS: Lymphocytes Absolute Auto 1.20 K/uL (0.90-2.90); Slide Review Reflex No
[2025-03-20 14:54] LABS: Albumin* 3.7 g/dL (3.3-5.0); Chloride* 103 mmol/L (96-114)
[2025-03-20 14:55] LABS: Potassium* 3.7 mmol/L (3.6-5.1); Sodium* 137 mmol/L (135-149)
[2025-03-20 14:57] LABS: Blood Urea Nitrogen* 10 mg/dL (7-30); Creatinine* 0.5 mg/dL (0.5-1.5); Est. Creatinine Clearance* 46.53; Estimated Glomerular Filt Rate 107 ml/min
[2025-03-20 14:58] LABS: Alanine Aminotransferase* 82 U/L (4-35); Alkaline Phosphatase* 62 U/L (40-150); Anion Gap 8 mEq/L (7-15); Aspartate Amino Transferase* 43 U/L (12-35); Bilirubin Direct* 0.3 mg/dL (0.0-0.5); Bilirubin Total* 0.6 mg/dL (0.1-1.5); Calcium* 8.5 mg/dL (8.4-10.6); Carbon Dioxide* 26 mmol/L (20-32); Glucose* 88 mg/dL (60-115); Total Protein* 6.8 g/dL (6.0-8.3)
[2025-03-20 15:07] VITALS: BP 159/87; PULSE 64; RESP 14; O2SAT 98
[2025-03-20 15:13] LABS: PCR FLU A Negative PCR FLU A (Negative); PCR FLU B Negative PCR FLU B (Negative); PCR RSV Negative PCR RSV (Negative); SARS PCR* Negative SARS-CoV-2 (Negative)
[2025-03-20 15:23] LABS: Appearance Urine Clear (Clear)
== END 2025-03-20 15:54 | disposition home or self-care (01) ==
PROVIDERS: Emergency Provider Family Medicine; PCP Family Medicine
DX: R53.83 Other fatigue (principal); R68.83 Chills (without fever); B34.9 Viral infection, unspecified; M54.50 Low back pain, unspecified; Z98.84 Bariatric surgery status; Z79.52 Long term (current) use of systemic steroids
CPT/HCPCS: 36415; 71045; 74176; 80048; 80076; 81001; 82150; 83605; 84484; 85025; 86140; 87040; 87086; 87631; 93005; 96360; 99284; 99285; J7030